=== PATIENT | female | born 1950 | race Caucasian/White ===

== ENCOUNTER → 2016-03-10 | Day surgery (SDC) | payer MEDICARE, OTHER ==
--- NOTE | 2016-02-28 09:41 | HP ---
PREOPERATIVE HISTORY AND PHYSICAL: DATE OF SURGERY: 03/10/16 DATE OF OFFICE VISIT/ENCOUNTER: 02/27/16 ATTENDING SURGEON: Drea Arreola MD PROCEDURE: Left shoulder open decompression and excision, distal clavicle, open. CHIEF COMPLAINT: Left shoulder pain. HISTORY OF PRESENT ILLNESS: This is a 65-year-old female who complains of pain in the left shoulder for over 2 years. It has gradually gotten worse. She denies any injury to the shoulder. She has had x-rays and an MRI, which revealed high riding humeral head, AC joint arthritis, and subacromial impingement along with calcific tendonitis and bursitis. She has failed conservative treatment including cortisone injection, chiropractic treatment, and physical therapy. She is having pain during the day as well as night while she is trying to sleep and anytime she lifts her arm out way from her body above 90 degrees. She is interested in pursuing more definitive treatment for this problem and has consented to proceed with a left shoulder decompression and distal clavicle excision. PAST MEDICAL HISTORY: 1. Hypertension. 2. Back pain. 3. History of kidney stones. PAST SURGICAL HISTORY: 1. Lumbar spine fusion in 2001. 2. Cholecystectomy. 3. Hemorrhoidectomy. 4. Right foot bunionectomy. 5. Bilateral carpal tunnel releases. 6. Right thumb surgery. 7. Stent placement for kidney stones. CURRENT MEDICATIONS: 1. Losartan potassium, hydrochlorothiazide 50 mg 1 tab daily. 2. Methadone HCL 10 mg 1 tab p.o. as needed for pain 3 to 4 per day. 3. Tylenol PM p.r.n. ALLERGIES: No known drug allergies. FAMILY MEDICAL HISTORY: Diabetes and colon cancer. SOCIAL HISTORY: The patient is retired. She is a smoker. She reports at this time smoking approximately 3 cigarettes per day. She is trying to quit. She was up to over a pack per day and has smoked for over 50 years. She denies illicit drug use and alcohol use. REVIEW OF SYSTEMS: General: Negative for fevers, chills, or night sweats. No known anesthesia problems. HEENT: Negative for headache, lightheadedness, or syncopal episodes. Integumentary: Negative for abrasions, lesions, or open wounds. Cardiothoracic: Positive for hypertension. Negative for chest pain, palpitations, or edema. Pulmonary: Negative for shortness of breath with exertion, chronic cough, COPD. GI: Negative for nausea, vomiting, diarrhea, constipation, or GERD. : Positive for history of kidney stones. Negative for nocturia, urinary frequency, urgency, history of UTIs. Musculoskeletal: Positive for current complaint and chronic back pain. Neurological: Negative for paresthesias, numbness, history of seizure, stroke, or epilepsy. Endocrine : Negative for diabetes or thyroid issues. Hematologic: Negative for easy bruising, anemia, excessive bleeding, or history of DVT. Infectious Disease: Negative for history of MRSA, hepatitis C, or HIV. PHYSICAL EXAMINATION GENERAL: Well-developed, well-nourished 65-year-old female, in no acute distress. VITAL SIGNS: Height 5 feet 5-1/2 inches, weight 182 pounds, pulse rate 83, blood pressure 132/80. HEENT: Normocephalic, atraumatic. Pupils are equal, round, and reactive to light and accommodation. Extraocular movements are intact. Throat is clear. NECK: Supple. No palpable lymph nodes. CARDIOTHORACIC: Regular rate and rhythm. S1, S2. No murmurs, rubs, or gallops. No edema. PULMONARY: Lungs are clear to auscultation bilaterally. No wheezes, rales, or rhonchi. ABDOMEN: Positive bowel sounds, soft, nontender. NEUROLOGICAL: Alert and oriented x3. Cranial nerves II through XII are intact. Sensation is intact to light touch. MUSCULOSKELETAL: On exam of the left shoulder, she has tenderness to palpation at the acromioclavicular joint. Range of motion: Forward elevation approximately 100 degrees after which there is significant increase in pain, abduction to 90 degrees, again with significant pain afterwards, internal rotation to about level L3, external rotation to 80 degrees, but painful at extremes. Increased pain with external rotation and abduction against resistance and weakness with these motions as well. Positive Rodrigues-Kike impingement and near impingement and empty can test. IMAGING STUDIES: X-rays of the left shoulder showed high-riding humeral head and AC joint arthritis and MRI of the shoulder again shows AC joint arthritis with impingement. No tear in the rotator cuff. Biceps tendon and the labrum are intact. IMPRESSION: Left shoulder impingement and calcific tendonitis, bursitis. PLAN: The patient is scheduled to undergo left shoulder open decompression and distal clavicle excision open with Dr. Arreola on 03/10/16. She will return to the office in 10 to 14 days postop for followup and suture removal. A prescription for [place] was e-scribed to the patient's pharmacy for postoperative pain management. She will also be using her methadone as prescribed by Dr. Deepa carroll. IVELISSE JERRY [id number]/[facility] #: [id number] [place]
[~2016-03-10] MED LIST: Acetaminophen TAB* 325 MG PO PRN; Buffered Lidocaine 1% SYR 3ML* 3 ML/SYR SYRINGE INTRADERM ONE; Buffered Lidocaine 1% SYR 3ML* 3 ML/SYR SYRINGE ONE; Bupivacaine 0.5% W/EPI SDV* 30 ML VIAL ONE; Dexamethasone IV* 4 MG/ML 1 ML (4 MG) ONE; DiMENhydriNATE IV* 50 MG/ML VIAL IV PUSH PRN; EPHEDrine (Pressors)* 50 MG/ML VIAL ONE; Famotidine IV* 10 MG/ML 2 ML (20 mg) IV ONE; Famotidine IV* 10 MG/ML 2 ML (20 mg) ONE; HYDROcodone/ACETAMIN 5-325 MG* 1 TAB ONE; HYDROcodone/ACETAMIN 5-325 MG* 1 TAB PO ONE; KETAMINE HCL* 50 MG/ML 10 ML VIAL ONE; Ketorolac INJ* 30 MG/ML 1 ML VIAL ONE; Lidocaine 1% MPF* 2 ML VIAL ONE; Lidocaine 2% PF * 5 ML VIAL ONE; Midazolam* 1 MG/ML 5 ML VIAL (5 MG) ONE; Ondansetron INJ* 2 MG/ML VIAL ONE; Propofol* 10 MG/ML 20 ML BTL IV PUSH ONE; ROPIVACAINE 5 MG/ML 30 ML BTL (0.5%) ONE; ceFAZolin 2 GM PREMIX (*) 2 GM/50 ML BAG IVPB ONE; fentaNYL* 50 MCG/ML 2 ML VIAL (100 MCG VIAL) ONE; oxyCODONE/Acetamin 5/325 MG* TAB PO PRN
[2016-03-10 17:13] VITALS: BP 138/88
--- NOTE | 2016-03-10 21:44 | OP ---
DATE OF OPERATION: 03/10/16 - [facility] DATE OF : 50 SURGEON: Drea Arreola MD [employer]CTION SPECIALIST: IVELISSE Babin ANESTHESIOLOGIST: María Elena Seymour MD ANESTHESIA: Block plus general. PRE-OP DIAGNOSES: Left shoulder impingement and AC joint arthritis. POST-OP DIAGNOSES: Left shoulder impingement and AC joint arthritis. OPERATIVE PROCEDURE: Left shoulder open decompression and distal clavicle excision. ESTIMATED BLOOD LOSS: Zero. INDICATIONS: Marilee is a 65-year-old female with left shoulder pain which has failed to improve despite conservative treatment including cortisone injection, physical therapy. She presents for left shoulder decompression and distal clavicle excision. DESCRIPTION OF PROCEDURE: The patient was brought to the operating room, was given a block in the preop area and general anesthetic in the operating room. The skin of her left shoulder and upper extremity was prepped and draped in the usual sterile fashion. A diagonal incision was made from the posterior aspect of the AC joint to the anterolateral corner of the acromion. We dissected through the subcutaneous tissue down to the deltoid trapezial fashion. The fascia was incised and subperiosteally dissected off of the distal clavicle and the anterior acromion. The Hohmann retractors were placed around the distal clavicle and the distal 8 mm of the clavicle were removed with a saw. A malleable retractor was then placed under the acromion to protect the rotator cuff. This was secured by the paralegal assistant, Holli Pires. The anterior and inferior aspect of the acromion were removed with the saw while the underlying rotator cuff was protected with a malleable retractor. There was some mild amount of bursitis overlying the rotator cuff and this was debrided. The rotator cuff was then thoroughly inspected and no tear was found. The wound was copiously irrigated with saline. The deltoid trapezial fascia was reapproximated to the anterior acromion and over the distal clavicle with #2 Ti-Cron suture. Subcutaneous tissue was closed with 2-0 Polysorb and the skin with skin fatemeh. The wounds were dressed with Xeroform, 4x4, and ABD. The patient tolerated the procedure well and was brought to the recovery room in good condition. [id number]/[facility] #: [id number] [facility]
== END | disposition home or self-care (01) ==
LOC: OREAST 07:44
PROVIDERS: ATTEND Orthopaedic Surgery
DX: M75.42 Impingement syndrome of left shoulder (principal); M19.012 Primary osteoarthritis, left shoulder; I10 Essential (primary) hypertension; F17.210 Nicotine dependence, cigarettes, uncomplicated
CPT/HCPCS: 88304; 88311; J0690; J1100; J1885; J2250; J2405; J2704; J2795; J3010

== ENCOUNTER 2016-07-13 12:35 | Day surgery (SDC) | payer MEDICARE, OTHER ==
--- NOTE | 2016-07-10 22:46 | HP ---
CC: Dr. Mahendra Arenas HISTORY AND PHYSICAL: DATE OF PLANNED ADMISSION AND SURGERY: 07/13/16 HISTORY OF PRESENT ILLNESS: Ms. Craven is a 65-year-old white female who is admitted with a right renal calculus for shockwave lithotripsy, possible cystoscopy and placement of a Right ureteral stent. Ms. Craven is a known stone former and in November 2013, required placement of a left ureteral stent and shockwave lithotripsy of a 1.6 cm calculus in the upper pole of the left kidney. She did very well postoperatively and there was good fragmentation and passage of the stone fragments. At that time, she was noted to have 2 non-obstructing right renal calculi each measuring about 8 mm in size. Those were observed and had been asymptomatic until about a week or two when she started having episodes of on and off right flank pain. The pain, however, was mild and did not require her taking any medications. She was evaluated in the office and had bilateral renal ultrasound. The study showed an 8-mm calculus that was ball valving in the right renal pelvis and at the ureteropelvic junction causing mild right hydronephrosis. There was also an 8-mm calculus in her left kidney, but no hydronephrosis. The patient then had a KUB, which confirmed the presence of a radiopaque calculus in the area of the right kidney. Because of the above history and the size of the stone which will make it unlikely to drop spontaneously, the patient is admitted for shockwave lithotripsy of the right renal calculus, and possible stent placement. PAST MEDICAL HISTORY AND SYSTEM REVIEW: The patient has past history of chronic back pain and had required surgery and placement of a cage around her lower lumbar vertebrae. She has chronic pain and she is maintained on Voltaren and on methadone 10 mg daily. She is hypertensive and maintained on losartan 50/12.5 mg daily. ALLERGIES: She denies any allergy to medications; however, she reports having reaction to ADHESIVE TAPE. SOCIAL HISTORY: She is a chronic smoker. PHYSICAL EXAMINATION GENERAL: Moderately overweight white female who looks her age. VITAL SIGNS: Blood pressure 130/80, pulse of 80. LUNGS: Clear. HEART: Regular and rhythmic. No murmurs. ABDOMEN: Soft. No masses. No tenderness and there is no CVA tenderness. IMPRESSION: 1. An 8-mm calculus in the right renal pelvis causing intermittent episodes of mild right flank pain. 2. Chronic back pain. 3. Hypertension. PLAN: Shockwave lithotripsy of the right renal calculus and possible cystoscopy and placement of a right ureteral stent depending upon the adequacy of the fragmentation of the stone. I discussed the above plans with the patient. Some of the potential complications including hematuria and postoperative renal colic. All her questions were answered. [id number]/[facility] #: [id number] [place]
[~2016-07-13 12:35] MED LIST changes: -Acetaminophen TAB* 325 MG PO PRN; -Buffered Lidocaine 1% SYR 3ML* 3 ML/SYR SYRINGE INTRADERM ONE; -Buffered Lidocaine 1% SYR 3ML* 3 ML/SYR SYRINGE ONE; +Buffered Lidocaine 1% SYRIN* 5 ML/SYR SYRINGE INTRADERM ONE; -Bupivacaine 0.5% W/EPI SDV* 30 ML VIAL ONE; -Dexamethasone IV* 4 MG/ML 1 ML (4 MG) ONE; -DiMENhydriNATE IV* 50 MG/ML VIAL IV PUSH PRN; -EPHEDrine (Pressors)* 50 MG/ML VIAL ONE; -Famotidine IV* 10 MG/ML 2 ML (20 mg) ONE; -HYDROcodone/ACETAMIN 5-325 MG* 1 TAB ONE; -HYDROcodone/ACETAMIN 5-325 MG* 1 TAB PO ONE; -KETAMINE HCL* 50 MG/ML 10 ML VIAL ONE; -Ketorolac INJ* 30 MG/ML 1 ML VIAL ONE; -Lidocaine 1% MPF* 2 ML VIAL ONE; -Lidocaine 2% PF * 5 ML VIAL ONE; +Metoclopramide TAB* 10 MG PO ONE; -Midazolam* 1 MG/ML 5 ML VIAL (5 MG) ONE; -Ondansetron INJ* 2 MG/ML VIAL ONE; -Propofol* 10 MG/ML 20 ML BTL IV PUSH ONE; -ROPIVACAINE 5 MG/ML 30 ML BTL (0.5%) ONE; -ceFAZolin 2 GM PREMIX (*) 2 GM/50 ML BAG IVPB ONE; -fentaNYL* 50 MCG/ML 2 ML VIAL (100 MCG VIAL) ONE; -oxyCODONE/Acetamin 5/325 MG* TAB PO PRN
[2016-07-13] MEDS ORDERED: Metoclopramide TAB* 10 MG ONE (12:43)
[2016-07-13] MEDS ORDERED: Buffered Lidocaine 1% SYRIN* 5 ML/SYR SYRINGE ONE (12:43)
[2016-07-13] MEDS ORDERED: Famotidine IV* 10 MG/ML 2 ML (20 mg) ONE (13:08)
[2016-07-13] MEDS ORDERED: Lidocaine 2% PF * 5 ML VIAL ONE (14:33)
[2016-07-13] MEDS ORDERED: KETAMINE HCL* 50 MG/ML 10 ML VIAL ONE (14:33)
[2016-07-13] MEDS ORDERED: Dexamethasone IV* 4 MG/ML 1 ML (4 MG) ONE (14:33)
[2016-07-13] MEDS ORDERED: Ketorolac INJ* 30 MG/ML 1 ML VIAL ONE (14:33)
[2016-07-13] MEDS ORDERED: Propofol* 10 MG/ML 20 ML BTL IV PUSH ONE (14:33)
[2016-07-13] MEDS ORDERED: fentaNYL* 50 MCG/ML 2 ML VIAL (100 MCG VIAL) ONE (14:33)
[2016-07-13] MEDS ORDERED: Ondansetron INJ* 2 MG/ML VIAL ONE (14:33)
[2016-07-13] MEDS ORDERED: Midazolam* 1 MG/ML 5 ML VIAL (5 MG) ONE (14:33)
[2016-07-13] MEDS ORDERED: Iohexol 180 (CONTRAST) 10 ML SDV IV ONE (14:40)
[2016-07-13] MEDS ORDERED: Ondansetron INJ* 2 MG/ML VIAL IV PRN (15:06)
[2016-07-13] MEDS ORDERED: fentaNYL* 50 MCG/ML 2 ML VIAL (100 MCG VIAL) IV PRN (15:06)
[2016-07-13] MEDS ORDERED: EPHEDrine (Pressors)* 50 MG/ML VIAL ONE (15:27)
[2016-07-13 16:49] VITALS: BP 134/74
--- NOTE | 2016-07-14 12:46 | OP ---
CC: Mahendra Arenas MD OPERATIVE REPORT: DATE OF OPERATION: 07/13/16 DATE OF : 50 SURGEON: Sedrick Hernandez MD. ANESTHESIOLOGIST: Dr. Michael Blum. ANESTHESIA: General. PRE-OP DIAGNOSIS: Right renal calculus (8 mm). POST-OP DIAGNOSIS: Right renal calculus (8 mm). OPERATIVE PROCEDURE: Shockwave lithotripsy of right renal calculus. INDICATION FOR PROCEDURE: Mrs. Craven is a 65-year-old white female, who is a stone former, and who was recently noted on a renal ultrasound to have an 8-mm calculus in the area of the right renal pel vis. This was associated with mild hydronephrosis and with mild right flank pain. A KUB confirmed the presence of the stone. Because of the size and the location of the stone, the above procedure w as advised and accepted. PATHOLOGY: Preoperative KUB showed a radiopaque calculus in the area of the right renal pelvis. No other abnormal calcification were noted. At fluoroscopy, the calculus was easily visualized. DESCRIPTION OF PROCEDURE: After successful general anesthesia, the patient was placed in the supine position on the shockwave lithotripsy table. The right renal calculus was visualized in both the P A and the oblique x-ray views and the position of the generator was adjusted to have the stone in th e focus of the shockwaves. A total of 1400 shocks were then delivered at a rate of 90 shocks per mi nute. The proper positioning and fragmentation of the stone were monitored periodically. At the co mpletion of the treatment, there was very good fragmentation of the stone, which could not be seen a nymore on the fluoroscopy. Because of the good fragmentation, it was decided not to place a stent. The patient tolerated the procedure well and left the operating room in good condition. The plan i s to see the patient back in 2 to 3 week in the office for followup. [id number]/[facility] #: [id number]
== END 2016-07-13 16:51 | disposition home or self-care (01) ==
LOC: OR 12:35
PROVIDERS: ATTEND Urology
DX: N13.2 Hydronephrosis with renal and ureteral calculous obstruction (principal); I10 Essential (primary) hypertension; F17.200 Nicotine dependence, unspecified, uncomplicated; G89.29 Other chronic pain; Z79.891 Long term (current) use of opiate analgesic
CPT/HCPCS: A9270-GY; J1100; J1885; J2250; J2405; J2704; J3010

== ENCOUNTER 2018-03-28 08:40 | Inpatient (IN) | payer MEDICARE, OTHER ==
[2018-03-28] MEDS ORDERED: NS 0.9% 1000 ML** 1,000 ML IV ONE (08:47)
[2018-03-28] MEDS ORDERED: methylPREDNISolone 125 MG* 2 ML VIAL IV ONE (08:47)
--- NOTE | 2018-03-28 08:52 | ED ---
Shortness of Breath - HPI Summary HPI Summary: A 67 y/o female brought in by ambulance presents to the ED c/o SOB. In the ED room, the patient has a pulse of 101 BPM, O2 saturation of 95%, and blood pressure of 142/91. According to the patient, she has been SOB for a while now, but she stated that this morning when she woke up and went to the bathroom, then back to bed she felt like her heart was racing and could not breath. She stated that she woke up her to call EMS. The patient denies any fevers or chest pain, but does have a cough. No PMHx of COPD. SHx of heavy everyday smoker (4-6 cigarettes per day). - History of Current Complaint Time Seen by Provider: 03/28/18 08:44 Hx Obtained From: Patient Onset/Duration: Sudden Onset, Lasting Minutes Timing: Constant Current Severity: None Dyspnea At: Rest Aggrevating Factors: Nothing Alleviating Factors: Nothing Associated Signs & Symptoms: Cough (Nonproductive) - Allergy/Home Medications Allergies/Adverse Reactions: Allergies Allergy/AdvReac Type Severity Reaction Status Date / Time No Known Drug Allergies Allergy See Comment Verified 03/28/18 22:07 BANDAIDS Allergy Rash-see Uncoded 12/02/16 09:59 below Home Medications: Home Medications Losartan/Hydrochlorothiazide [Losartan-Hctz 50-12.5 mg Tab] 1 tab PO QAM [History Confirmed 03/28/18] PMH/Surg Hx/FS Hx/Imm Hx Endocrine/Hematology History: Denies: Hx Diabetes Cardiovascular History: Reports: Hx Hypertension - ON MEDICATION Denies: Hx Pacemaker/ICD GI History: Reports: Other GI Disorders - 2006 HX OF COLON POLYPS History: Reports: Hx Kidney Stones, Other Problems/Disorders - CURRENTLY HAS RIGHT RENAL CALCULUS Denies: Hx Renal Disease Musculoskeletal History: Reports: Hx Arthritis - RIGHT HAND, LEFT SHOULDER, Hx Bursitis - POSSIBLE LEFT SHOULDER, Hx Tendonitis - BILATERAL ARMS, Other Musculoskeletal History - FIBROMYALGIA Sensory History: Reports: Hx Contacts or Glasses - GLASSES Denies: Hx Hearing Aid Opthamlomology History: Reports: Hx Contacts or Glasses - GLASSES Psychiatric History: Denies: Hx Panic Disorder - Cancer History Cancer Type, 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 HEMRO[place]OMY, [facility] [place]. GALL BLADDER REMOVED, [facility] [place]. RIGHT FOOT BONE SPUR REMOVED, [facility] [place],. CARPEL TUNNEL BILAT HANDS. [facility] [place]. 2014 RIGHT THUMB TRIGGER RELEASE, RIGHT INDEX FINGER EXCISION OF MASS, ARTHROPLASTY, [facility] [place]. 2014 CYSTOSCOPY WITH LEFT URETERAL STENT, LEFT ESWL, left arm skin - squamous cell Hx Anesthesia Reactions: No - Family History Known Family History: Negative: Hypertension, Diabetes - Social History Alcohol Use: None Substance Use Type: Reports: None Smoking Status (MU): Light Every Day Tobacco Smoker Type: Cigarettes Amount Used/How Often: 3-4 CIGARETTES PER DAY, OFF AND ON 50 YEARS Length of Time of Smoking/Using Tobacco: 50 YEARS Have You Smoked in the Last Year: Yes Review of Systems Negative: Fever Positive: Other - POSITIVE: "FELT HEART RACING".. Negative: Chest Pain Positive: Shortness Of Breath, Cough All Other Systems Reviewed And Are Negative: Yes Physical Exam - Summary Physical Exam Summary: VITAL SIGNS: Reviewed. GENERAL: Patient is a well-developed and nourished female who is lying comfortable in the stretcher. Patient is not in any acute respiratory distress. HEAD AND FACE: No signs of trauma. No ecchymosis, hematomas or skull depressions. No sinus tenderness. EYES: PERRLA, EOMI x 2, No injected conjunctiva, no nystagmus. EARS: Hearing grossly intact. Ear canals and tympanic membranes are within normal limits. MOUTH: Oropharynx within normal limits. NECK: Supple, trachea is midline, no adenopathy, no JVD, no carotid bruit, no c- spine tenderness, neck with full ROM. CHEST: Symmetric, no tenderness at palpation LUNGS: Clear to auscultation bilaterally. No crackles. Diffuse wheezing. CVS: Regular rate and rhythm, S1 and S2 present, no murmurs or gallops appreciated. ABDOMEN: Soft, non-tender. No signs of distention. No rebound no guarding, and no masses palpated. Bowel sounds are normal. EXTREMITIES: FROM in all major joints, no edema, no cyanosis or clubbing. NEURO: Alert and oriented x 3. No acute neurological deficits. Speech is normal and follows commands. SKIN: Dry and warm Triage Information Reviewed: Yes Vital Signs Reviewed: Yes Diagnostics - Laboratory Result Diagrams: 03/28/18 09:06 03/28/18 09:09 Lab Statement: Any lab studies that have been ordered have been reviewed, and results considered in the medical decision making process. - Radiology CXR Radiology Interpretation Completed By: Radiologist Summary of Radiographic Findings: No radiographic evidence of acute cardiopulmonary disease. ED PHYSICIAN REVIEWED THIS RADIOLOGY REPORT. - EKG 0851 Cardiac Rate: NL - 92 BPM EKG Rhythm: Sinus Rhythm - 92 BPM Summary of EKG Findings: NO ST ELEVATIONS, NORMAL AXIS Course/Dx - Course Assessment/Plan: A 67 y/o female brought in by ambulance presents to the ED c/o SOB. In the ED room, the patient has a pulse of 101 BPM, O2 saturation of 95%, and blood pressure of 142/91. According to the patient, she has been SOB for a while now, but she stated that this morning when she woke up and went to the bathroom, then back to bed she felt like her heart was racing and could not breath. She stated that she woke up her to call EMS. The patient denies any fevers or chest pain, but does have a cough. No PMHx of COPD. SHx of heavy everyday smoker (4-6 cigarettes per day). Blood work without any significant abnormality except for chloride 99, creatinine 1.15, glucose 126, AST of 12, urinalysis negative for UTI. Since the patient was having shortness of breath and the d-dimer was done to rule out PE and the d-dimer is negative. Chest x- ray shows no acute pathology. EKG shows a sinus rhythm without any ST elevations. Initially the patient was wheezing therefore the patient was given DuoNeb and Solu-Medrol. The patient appears to be hypoxic and without oxygen she drops to 86%. Therefore I discussed the case with Dr. Portillo from the hospital services for accepted the patient for admission. The patient is hemodynamically stable alert and oriented 3. - Diagnoses Differential Diagnosis/HQI/PQRI: Positive: Asthma, Bronchitis, CHF, COPD Exacerbation Provider Diagnoses: COPD exacerbation - Physician Notifications Discussed Care of Patient With: Zeyad Portillo Time Discussed With Above Provider: 11:33 Instructed by Provider To: Other - ACCEPTS PATIENT FOR ADMISSION. Discharge - Sign-Out/Discharge Documenting (check all that apply): Patient Departure - ADMIT, Sign-Out Patient - COY Signing out patient TO: Zeyad Portillo Receiving patient FROM: Chandu Corey Patient Received Moderate/Deep Sedation with Procedure: No - Discharge Plan Condition: Stable Disposition: ADMITTED TO [facility] - Billing Disposition and Condition Condition: STABLE Disposition: Admitted to [facility] - Attestation Statements Document Initiated by Alane: Yes Documenting Scribe: Vincent Del Real Provider For Whom Cynthiaibmadison is Documenting (Include Credential): Chandu Corey MD Scribe Attestation: Vincent Chiang, scribed for Chandu Corey MD on 03/29/18 at 2153. Scribe Documentation Reviewed: Yes Provider Attestation: The documentation as recorded by the Vincent byers accurately reflects the service I personally performed and the decisions made by Chandu iraheta MD Status of Scribe Document: Viewed
[2018-03-28 09:17] LABS: ABS Basophils 0.1 10^3/ul (0-0.2); ABS Eosinophils 0.4 10^3/ul (0-0.6); ABS Lymphocytes 2.8 10^3/ul (1.0-4.8); ABS Monocytes 0.7 10^3/ul (0-0.8); ABS Nucleated RBC 0 10^3/ul; Eosinophil % 4.4 %; Hematocrit 46 % (35-47); Hemoglobin 15.2 g/dl (12.0-16.0); Lymphocyte % 27.6 %; Mean Corpuscular HGB Conc 34 g/dl (31-36); Mean Corpuscular Hemoglobin 29 pg (27-31); Mean Corpuscular Volume 87 fL (80-97); Mean Platelet Volume 7.2 fL (7.4-10.4); Nucleated Red Blood Cells % 0; Platelet Count 325 10^3/ul (150-450); Red Blood Count 5.24 10^6/ul (4.00-5.40); Red Cell Distribution Width 15 % (10.5-15); White Blood Count 10.1 10^3/ul (3.5-10.8)
[2018-03-28 09:30] LABS: Activated Partial Thrombo Time 30.3 seconds (26.0-36.3)
[2018-03-28] MEDS ORDERED: Albuterol/Ipratropium NEB.SOL* Albuterol 2.5 MG/Ipratropium 0.5 MG 3 ML ONE (09:42)
[2018-03-28 09:44] LABS: Albumin 4.4 g/dL (3.2-5.2); Albumin/Globulin Ratio 1.4 (1-3); C Reactive Protein 6.6 mg/L (<8.01); Calcium 9.8 mg/dL (8.6-10.3); EGFR African American 56.9 (>60); EGFR Non-African American 47.1 (>60); Globulin 3.2 g/dL (2-4); Potassium 3.8 mmol/L (3.5-5.0); Total Bilirubin 0.6 mg/dL (0.2-1.0); Total Protein 7.6 g/dL (6.4-8.9)
[2018-03-28 09:48] LABS: CKMB ng/mL 1.6 ng/mL (0.6-6.3)
[2018-03-28] MEDS: Albuterol/Ipratropium NEB.SOL* Albuterol 2.5 MG/Ipratropium 0.5 MG 3 ML INH SCH ×2 (09:49→10:14)
[2018-03-28 10:28] LABS: Urine Appearance Cloudy; Urine Bacteria Absent (Absent); Urine Bilirubin Negative (Negative); Urine Blood Negative (Negative); Urine Color Yellow; Urine Glucose Negative (Negative); Urine Ketones Negative (Negative); Urine Nitrite Negative (Negative); Urine Protein Negative (Negative); Urine Red Blood Cell Trace(0-2/hpf) (Absent); Urine Specific Gravity 1.019 (1.010-1.030); Urine Squamous Epithelial Cell Present (Absent); Urine Urobilinogen Negative (Negative); Urine White Blood Cell 1+(6-10/hpf) (Absent)
[2018-03-28] MEDS ORDERED: Acetaminophen TAB* 325 MG PO PRN (11:56)
[2018-03-28] MEDS ORDERED: Albuterol/Ipratropium NEB.SOL* Albuterol 2.5 MG/Ipratropium 0.5 MG 3 ML INH SCH (12:00)
[2018-03-28] MEDS ORDERED: Azithromycin IV(*) 500 MG in NS 0.9% 250 ML* 250 ML IVPB SCH (12:00)
[2018-03-28] MEDS ORDERED: Albuterol/Ipratropium NEB.SOL* Albuterol 2.5 MG/Ipratropium 0.5 MG 3 ML INH PRN (12:05)
[2018-03-28 12:35] LABS: Influenza A Molecular NEGATIVE (Negative); Influenza B Molecular NEGATIVE (Negative)
[2018-03-28] MEDS ORDERED: Azithromycin IV* 500 MG ADVAN VIAL/BAG IVPB ONE (12:52)
[2018-03-28] MEDS: Losartan TAB* 25 MG PO SCH (14:14)
[2018-03-28] MEDS ORDERED: Albuterol/Ipratropium NEB.SOL* Albuterol 2.5 MG/Ipratropium 0.5 MG 3 ML INH ONE (18:12)
[2018-03-28] MEDS: Docusate CAP* 100 MG PO SCH (20:10)
[2018-03-28] MEDS: methylPREDNISolone 125 MG* 2 ML VIAL IV SCH (20:10)
--- NOTE | 2018-03-28 20:37 | HP ---
CC: Dr. Arenas * HISTORY AND PHYSICAL: DATE OF ADMISSION: 03/28/18 TIME OF MY EVALUATION: 4 p.m. PRIMARY CARE PROVIDER: Mahendra Arenas MD, [facility]. CHIEF COMPLAINT: Shortness of breath/cough/heart racing. HISTORY OF PRESENT ILLNESS: Ms. Craven is a pleasant 67-year-old female who came to the hospital by ambulance with a chief complaint of shortness of breath. The patient was mildly tachypneic with a pulse of just over 100 beats per minute. Her oxygen saturation was 95% on supplemental oxygen, but upon ambulation on room air, dipped quickly into the low 80s. The patient states she has been short of breath for some time, but she woke up and went to her bathroom and felt her heart racing and could not re-catch her breath. Her activated EMS. The patient does not have a formal history of COPD, but the patient has smoked for greater than 50 years with an average consumption of 1 pack per day for a total pack year history of 50 years. The patient does not have an extensive medical history and has not been hospitalized at [facility] before now. She was referred for admission because of her ongoing hypoxia with ambulation. Again, she has not had a formal pulmonology consult. PAST MEDICAL HISTORY: 1. Hypertension - on medication. 2. History of colon polyps with removal in 2006. 3. Right hand arthritis/left shoulder bursitis/bilateral arm tendinitis/ diffuse fibromyalgia. 4. Wears eyeglasses. 5. 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 6. History of lumbar surgery in 1998. 7. History of hemorrhoidectomy. 8. History of cholecystectomy. 9. History of right thumb bone spur removed. 10. History of bilateral carpal tunnel correction. 11. History of right thumb trigger release and right index finger excision of mass. 12. History of arthroplasty. 13. Cystoscopy with left ureteral stent in 2013. 14. Left extracorporeal shock wave therapy. OUTPATIENT MEDICATIONS: 1. Losartan/hydrochlorothiazide 50/12.5 mg per tab - 1 tab by mouth daily. 2. Methadone 10 to 20 mg by mouth every 6 hours as needed (the patient brought her own supply). ALLERGIES: No known drug allergies. FAMILY HISTORY: Negative for hypertension and diabetes. SOCIAL HISTORY: The patient is an ongoing smoker for over 50 years with a 50- pack year smoking history or greater. The patient is . She is currently retired. The patient lives independently in the community. REVIEW OF SYSTEMS: A 14-point review of systems was accomplished at the bedside. This was largely negative except for the pertinent positives as mentioned above in the HPI and past medical history. Specifically, the patient does espouse coughing, but not sputum production. She has not had fevers. She has had progressive shortness of breath and tachycardia. No recent known infections. No recent ill contacts. No urinary symptoms. PHYSICAL EXAMINATION ON ADMISSION VITAL SIGNS: Temperature 99.3 (T-max), pulse 92 to 97 and regular, respirations 18 to 20, oxygen saturation is low 90s on 2.5 L nasal cannula with desaturations to 80% or less walking on room air in a monitored setting. HEENT: Oropharynx is clear. Mucous membranes are moist. LUNGS: Clear to auscultation, but diminished air movement anteriorly and posteriorly. No wheezing appreciated. HEART: Normal S1, normal S2. No murmurs, rubs, or gallops appreciated. ABDOMEN: Soft and nontender. No tenderness. Normoactive bowel sounds throughout. EXTREMITIES: Without clubbing, cyanosis, or edema. LYMPH: No adenopathy appreciated. NEURO: No sensory, motor, proprioception component deficiency. PSYCH: Normal affect. No acute anxiety or depression. SKIN: Dry and intact. No rashes, lesions, or breakdown. DIAGNOSTIC STUDIES/LAB DATA: Admission Data: White blood cell count top normal at 10.1, hemoglobin 15.2, platelets 325. INR unremarkable. D-dimer negative. Blood gas significant for a pH of 7.46/pCO2 38/pO2 66 (supplemental oxygen/nasal cannula). Blood chemistry is significant for a creatinine valve of 1.15, up from most recent value of 0.98 in 2017. The remainder of her electrolytes are unremarkable. Her glucose is mildly elevated at 126 ( nonfasting). Lactic acid 1.6. AST and ALT are normal. Troponin I is 0. BNP is 26. Total protein and albumin are both preserved. Urinalysis negative with 1+ white cells (6 to 10 cells per high-power field) seen in the urine, but no urinary symptoms of unclear significance. Influenza A and B were both negative. Her chest x-ray did not show any pulmonary parenchymal disease. There was no radiographic evidence for her current presentation as per the radiology report. Her electrocardiogram showed no ST or T wave changes. IMPRESSION: Ms. Craven is a 67-year-old female with an acute COPD exacerbation with under-appreciation of likely underlying COPD. The patient has been started on IV Solu-Medrol and will continue on 60 IV q.8 regimen. She will continue to receive DuoNebs in the hospital setting as well as IV azithromycin for possible infectious cause of this presentation. In terms of her oxygen level, she will continue on oxygen supplementation overnight and she will re-tested in the morning for qualification for outpatient oxygen. Hopefully, the patient's airway inflammation and/or infection will improve and her ventilation will also improve and her oxygenation will, in turn, improve. If this is not the case, she will qualify for outpatient oxygen and logistics will be arranged. Smoking cessation counseling was given directly by me for greater than 15 minutes and the patient was happy to receive that. She does have nicotine replacement therapy at home. She has taken Chantix in the past. Both have been unsuccessful with respect to durable cessation. She is eager to start again. The patient is full code. TOTAL SPENT: Total time taken to admit Ms. Craven was 75 minutes, not counting the tobacco cessation counseling and greater than half of that 75 minutes was at the bedside going over the history and physical and explaining the hospital plan of care to the patient as well as the pathophysiology of COPD and relating that to smoking [id number]/[facility] #: [id number] MTDD
[2018-03-28] MEDS: Benzocaine/Menthol LOZ* 1 LOZENGE PO PRN (22:19)
[2018-03-29] MEDS: methylPREDNISolone 125 MG* 2 ML VIAL IV SCH ×3 (03:37→19:52)
[2018-03-29] MEDS: Losartan TAB* 25 MG PO SCH (09:26)
[2018-03-29] MEDS: Docusate CAP* 100 MG PO SCH ×2 (09:26→19:54)
[2018-03-29] MEDS: Nicotine PATCH 14 MG/24 HR* PATCH TRANSDERM SCH (09:26)
[2018-03-29] MEDS: Azithromycin IV(*) 500 MG in NS 0.9% 250 ML* 250 ML IVPB SCH (12:19)
[2018-03-29] MEDS: Methadone TAB* 10 MG PO PRN (12:34)
--- NOTE | 2018-03-29 18:41 | PN ---
Subjective Date of Service: 03/29/18 Interval History: Interviewed and examined patient at bedside; Reviewed overnight nursing notes and patient labs Patient's oxygenation status did not appreciably improve and, in fact, her O2 saturation on walking worsened. On ambulation, she required EIGHT liters of oxygen to maintain sats > 90%. We discussed how it would be prudent to have her airway inflammation decrease before discharge. She is tolerating steroids and on IV Abx (Azithro). We discussed that it might be the case that she has more extensive underlying pulmonary disease such that a relatively minor insult would result in a substantial COPD exacerbation and greater oxygen requirement. She suspects she might indeed have more severe COPD than initially thought. . Family History: Unchanged from Admission Social History: Unchanged from Admission Past Medical History: Unchanged from Admission Objective Active Medications: Acetaminophen (Tylenol Tab*) 650 mg PO Q4H PRN PRN Reason: FEVER/PAIN Albuterol/Ipratropium (Duoneb (Albuterol 2.5 Mg/Ipratropium 0.5 Mg)) 1 neb INH Q4H PRN PRN Reason: SOB/WHEEZING Docusate Sodium (Colace Cap*) 100 mg PO BID [facility] Last Admin: 03/29/18 09:26 Dose: 100 mg Azithromycin 500 mg/ Sodium (Chloride) 250 mls @ 250 mls/hr IVPB 1300 [facility] Last Admin: 03/29/18 12:19 Dose: 250 mls/hr Losartan Potassium (Cozaar Tab*) 50 mg PO DAILY [facility] Last Admin: 03/29/18 09:26 Dose: 50 mg Methadone HCl (Dolophine Tab*) 10 mg PO Q6H PRN PRN Reason: PAIN Last Admin: 03/29/18 12:34 Dose: 10 mg Methylprednisolone Sodium Succinate (Solu-Medrol 125mg *) 60 mg IV Q8H [facility] Last Admin: 03/29/18 12:05 Dose: 60 mg Nicotine (Nicotine Patch 14 Mg/24 Hr*) 1 patch TRANSDERM DAILY [facility] Last Admin: 03/29/18 09:26 Dose: Not Given Pharmacy Profile Note (Nicotine Patch Removal Note*) 1 note FOLLOW UP 2100 [facility] Throat Lozenges (Chloraseptic Namrata*) 1 namrata PO Q6H PRN PRN Reason: SORE THROAT Last Admin: 03/28/18 22:19 Dose: 1 namrata Vital Signs - 8 hr 02/05/19 02/05/19 02/05/19 11:26 12:34 12:47 Temperature 97.8 F Pulse Rate 89 Respiratory 20 16 Rate Blood Pressure 129/63 (mmHg) O2 Sat by Pulse 94 88 Oximetry 03/29/18 03/29/18 03/29/18 14:35 15:01 16:00 Temperature 98.6 F Pulse Rate 84 Respiratory 18 18 Rate Blood Pressure 110/83 (mmHg) O2 Sat by Pulse 93 93 Oximetry Oxygen Devices in Use Now: Nasal Cannula Appearance: NAD at rest Eyes: No Scleral Icterus Ears/Nose/Mouth/Throat: Clear Oropharnyx Neck: Trachea Midline Respiratory: Symmetrical Chest Expansion and Respiratory Effort, - - distant breath sounds Abdominal: NL Sounds; No Tenderness; No Distention Lymphatic: No Cervical Adenopathy Extremities: No Edema Skin: No Rash or Ulcers Neurological: Alert and Oriented x 3 Lines/Tubes/Other Access: Clean, Dry and Intact Peripheral IV Nutrition: Taking PO's Result Diagrams: 03/28/18 09:06 03/28/18 09:09 Microbiology and Other Data: Microbiology 03/28/18 10:15 Urine Culture - Final Urine 03/28/18 12:07 Influenza Types A,B Antigen - Final Nasopharyngeal Specimen received for Influenza A/B Molecular testing Assess/Plan/Problems-Billing . Assessment: 67 year old female with COPD and now, acute exacerbation and hypoxic respiratory failure. Ongoing oxygen requirement --> need for substantial supplementation such that I am uncomfortable sending patient home today. (new 8L NC O2 requirement) Patient understands she must stay at least another night and hopefully, there is improvement. Converted to inpatient status on 03/29/18. - Patient Problems (1) COPD with exacerbation Current Visit: Yes Status: Acute Priority: High Code(s): J44.1 - CHRONIC OBSTRUCTIVE PULMONARY DISEASE W (ACUTE) EXACERBATION Comment: - IV steroids ==> convert to prednsione 03.30.18 - Azithromycin - Duonebs Q4 prn - O2 (2) Respiratory failure with hypoxia Current Visit: Yes Status: Acute Priority: High Code(s): J96.91 - RESPIRATORY FAILURE, UNSPECIFIED WITH HYPOXIA Comment: - 8L NC requirement when walking - PE very unlikely given neg d-dimer and clinical presentation (- CP, etc) - If patient does not improve by 03/30/18, recommend non-contrast chest CT to evaluate pulmonary parenchyma. - Low dose chest CT from late 2018 was reviewed, with some airspace disease at that time, but a more timely, dedicated study may be in order given current presentation.
[2018-03-29] MEDS: Benzocaine/Menthol LOZ* 1 LOZENGE PO PRN (19:54)
[2018-03-29] MEDS: Nicotine Patch Removal NOTE FOLLOW UP SCH (19:54)
[2018-03-30] MEDS: methylPREDNISolone 125 MG* 2 ML VIAL IV SCH ×2 (03:42→11:58)
[2018-03-30] MEDS: Losartan TAB* 25 MG PO SCH (09:03)
[2018-03-30] MEDS: Benzocaine/Menthol LOZ* 1 LOZENGE PO PRN (09:03)
[2018-03-30] MEDS: Docusate CAP* 100 MG PO SCH ×2 (09:03→19:49)
[2018-03-30] MEDS: Methadone TAB* 10 MG PO PRN (09:14)
[2018-03-30] MEDS: Nicotine PATCH 14 MG/24 HR* PATCH TRANSDERM SCH (09:33)
[2018-03-30] MEDS ORDERED: methylPREDNISolone 125 MG* 2 ML VIAL IV SCH (12:00)
[2018-03-30] MEDS ORDERED: methylPREDNISolone SOD 40 MG* 1 ML VIAL IV SCH (12:00)
[2018-03-30] MEDS: Azithromycin IV(*) 500 MG in NS 0.9% 250 ML* 250 ML IVPB SCH (12:35)
[2018-03-30] MEDS ORDERED: Enoxaparin(*) 40 MG/0.4 ML SYR SUBCUT SCH (16:00)
--- NOTE | 2018-03-30 16:01 | PN ---
Subjective Date of Service: 03/30/18 Interval History: Pt feels well. On 3 L 02 currently. would like to go home without 02. c/p occasional "cough attacks", nonproductive Family History: Unchanged from Admission Social History: Unchanged from Admission Past Medical History: Unchanged from Admission Objective Active Medications: Acetaminophen (Tylenol Tab*) 650 mg PO Q4H PRN PRN Reason: FEVER/PAIN Albuterol/Ipratropium (Duoneb (Albuterol 2.5 Mg/Ipratropium 0.5 Mg)) 1 neb INH Q4H PRN PRN Reason: SOB/WHEEZING Last Admin: 03/30/18 00:00 Dose: 1 neb Docusate Sodium (Colace Cap*) 100 mg PO BID [facility] Last Admin: 03/30/18 09:03 Dose: 100 mg Azithromycin 500 mg/ Sodium (Chloride) 250 mls @ 250 mls/hr IVPB 1300 [facility] Last Admin: 03/30/18 12:35 Dose: 250 mls/hr Losartan Potassium (Cozaar Tab*) 50 mg PO DAILY [facility] Last Admin: 03/30/18 09:03 Dose: 50 mg Methadone HCl (Dolophine Tab*) 10 mg PO Q6H PRN PRN Reason: PAIN Last Admin: 03/30/18 09:14 Dose: 10 mg Methylprednisolone Sodium Succinate (Solu-Medrol 40 Mg) 40 mg IV Q8H [facility] Last Admin: 03/30/18 12:35 Dose: 40 mg Nicotine (Nicotine Patch 14 Mg/24 Hr*) 1 patch TRANSDERM DAILY [facility] Last Admin: 03/30/18 09:33 Dose: Not Given Pharmacy Profile Note (Nicotine Patch Removal Note*) 1 note FOLLOW UP 2100 [facility] Last Admin: 03/29/18 19:54 Dose: 1 note Throat Lozenges (Chloraseptic Namrata*) 1 namrata PO Q6H PRN PRN Reason: SORE THROAT Last Admin: 03/30/18 09:03 Dose: 1 namrata Vital Signs - 8 hr 03/30/18 03/30/18 03/30/18 08:00 09:14 11:34 Temperature 98.2 F Pulse Rate 95 Respiratory 18 20 18 Rate Blood Pressure 158/77 (mmHg) O2 Sat by Pulse 96 90 Oximetry 03/30/18 03/30/18 14:00 14:53 Temperature Pulse Rate 82 Respiratory 18 20 Rate Blood Pressure 128/82 (mmHg) O2 Sat by Pulse Oximetry Oxygen Devices in Use Now: Nasal Cannula Appearance: 67 yo f in NAD, aAOx3 Eyes: No Scleral Icterus, PERRLA Ears/Nose/Mouth/Throat: NL Teeth, Lips, Gums, Mucous Membranes Moist Neck: NL Appearance and Movements; NL JVP, Trachea Midline Respiratory: Symmetrical Chest Expansion and Respiratory Effort, - - coarse breath sounds b/l Cardiovascular: NL Sounds; No Murmurs; No JVD, RRR Abdominal: NL Sounds; No Tenderness; No Distention Lymphatic: No Cervical Adenopathy Extremities: No Edema, No Clubbing, Cyanosis Skin: No Rash or Ulcers, No Nodules or Sclerosis Neurological: Alert and Oriented x 3, NL Muscle Strength and Tone Result Diagrams: 03/28/18 09:06 03/28/18 09:09 Microbiology and Other Data: Microbiology 03/28/18 10:15 Urine Culture - Final Urine 03/28/18 12:07 Influenza Types A,B Antigen - Final Nasopharyngeal Specimen received for Influenza A/B Molecular testing Assess/Plan/Problems-Billing . Assessment: 67 year old female with COPD and now, acute exacerbation and hypoxic respiratory failure. Converted to inpatient status on 03/29/18. - Patient Problems (1) COPD with exacerbation Comment: - IV steroids ==> convert to prednisone 2.. - Azithromycin - Duonebs Q4 prn - O2 (2) Respiratory failure with hypoxia Comment: - still on 3 L 02 but getting better - PE very unlikely given neg d-dimer and clinical presentation (- CP, etc) (3) DVT prophylaxis Comment: Lovenox Status and Disposition: Inpatient, weaning off 02.
[2018-03-30] MEDS: Nicotine Patch Removal NOTE FOLLOW UP SCH (19:50)
[2018-03-31 06:23] LABS: BUN/Creatinine Ratio 36.8 (8-20); Calcium 9.1 mg/dL (8.6-10.3); EGFR African American 78.6 (>60); EGFR Non-African American 64.9 (>60); Potassium 4.2 mmol/L (3.5-5.0)
[2018-03-31] MEDS ORDERED: predniSONE TAB* 20 MG PO SCH (09:00)
[2018-03-31] MEDS: Losartan TAB* 25 MG PO SCH (09:17)
[2018-03-31] MEDS: Methadone TAB* 10 MG PO PRN (09:18)
[2018-03-31] MEDS: Docusate CAP* 100 MG PO SCH (09:18)
[2018-03-31] MEDS: Nicotine PATCH 14 MG/24 HR* PATCH TRANSDERM SCH (09:39)
[2018-03-31 11:35] VITALS: BP 140/79
--- NOTE | 2018-03-31 14:13 | DS ---
CC: Dr. Arenas * DISCHARGE SUMMARY: DATE OF ADMISSION: 03/28/18 DATE OF DISCHARGE: 03/31/18 PRIMARY CARE PROVIDER: Dr. Arenas. DISCHARGE DIAGNOSES: 1. Acute chronic obstructive pulmonary disease exacerbation. 2. Acute hypoxemic respiratory failure due to above. 3. The patient is going to be using oxygen at 2 L while ambulating at discharge. SECONDARY DIAGNOSES: 1. Hypertension. 2. History of colon polyps with removal in 2006. 3. History of right hand arthritis. 4. History of squamous cell carcinoma of the left arm. 5. History of lumbar spine surgery in 1998. 6. Hemorrhoidectomy. 7. History of cholecystectomy. 8. History of joint and finger surgeries on bilateral hands. 9. History of ureteral stent placement in 2013 for nephrolithiasis. MEDICATIONS AT DISCHARGE: Include: 1. Prednisone taper at 20 mg tablets 3 tablets daily for 2 days, then 2 tablets daily for 2 days, then 1 tablet daily for 2 hours, then half a tablet daily for 2 days, then stop. 2. Azithromycin 250 mg daily for a total of 2 days to complete 5-day treatment. 3. Albuterol MDI 2 puffs every 4 hours p.r.n. The remaining medications are unchanged and include: 1. Losartan/hydrochlorothiazide 1 tablet q.a.m. 2. Metolazone 1 to 2 tablets every 6 hours p.r.n. LABORATORY DATA AND STUDIES PERFORMED DURING THE HOSPITAL STAY: Included on 09/09, sodium of 131, potassium , chloride 108, carbon dioxide 30, BUN 32 , creatinine 0.87. Microbiology test shows no growth of clinically significant organisms on the urine cultures. ABG obtained on 03/28/18 showed pH of 7.46, PCO2 of 38, PO2 of 66, and bicarb level of 27. The patient's portable chest x-ray, impression: "No radiographic evidence of acute pulmonary disease." HOSPITALIZATION COURSE: Marilee Craven is a 67-year-old female with a history of 1 pack per day smoking who presented to the hospital complaining of cough and wheezing. The patient was significantly hypoxemic and required supplementation with oxygen. Gradually her acute hypoxemic respiratory failure started resolving. By the time of discharge, she was not in need of oxygen at rest, but she still needed it. At discharge, she is going to prescribed to be using 2 L of oxygen with ambulation. At the time of discharge, the patient was not wheezing at all and her respiratory symptoms basically resolved. She is going to be discharged home on oral prednisone taper and to finish her azithromycin course of treatment. PHYSICAL EXAM AT TIME OF DISCHARGE: Blood pressure of 140/79, heart rate of 93 and regular, respiratory rate 14, oxygen saturation 94% on room air, temperature 98.1. General: Patient is a very pleasant 67-year-old female who is in no acute distress, alert, awake, and oriented x3. HEENT: Head: Atraumatic, normocephalic. Eyes: Pupils are equal, reactive to light and accommodation. Oropharynx is clear. Mucosa moist. Neck: Supple. No JVD. No bruits bilaterally. Cardiovascular: Regular rate and rhythm. No murmur. Respiratory: Clear to auscultation bilaterally. Abdomen: Soft, nontender. Bowel sounds are present in all 4 quadrants. Extremities: There is no edema. Pulses +2 bilaterally. There is no clubbing or cyanosis. On neuro evaluation, speech is clear. Cranial nerves II through XII grossly intact. Motor strength is 5/5 bilaterally. Please note that this is a short summary of patient's hospitalization. Please refer to further medical records for details. The patient is recommended to follow up with her primary care provider in approximately 4 to 7 days. TIME SPENT: Approximately 35 minutes was spent on the patient's discharge. [id number]/[facility] #: [id number] MTDD
== END 2018-03-31 13:30 | disposition home or self-care (01) | DRG 189 ==
LOC: ED 08:40 → MED 11:54 → OBSVTOIN 03-29 11:39
PROVIDERS: ADMIT Internal Medicine; ATTEND Internal Medicine
DX: J96.01 Acute respiratory failure with hypoxia (principal); J44.1 Chronic obstructive pulmonary disease with (acute) exacerbation; F17.210 Nicotine dependence, cigarettes, uncomplicated; I10 Essential (primary) hypertension; N20.0 Calculus of kidney; M79.7 Fibromyalgia; M19.012 Primary osteoarthritis, left shoulder; Z85.828 Personal history of other malignant neoplasm of skin; M19.041 Primary osteoarthritis, right hand; Z90.49 Acquired absence of other specified parts of digestive tract; Z96.698 Presence of other orthopedic joint implants; Z96.0 Presence of urogenital implants; Z91.09 Other allergy status, other than to drugs and biological substances; Z86.010 Personal history of colon polyps; Z87.442 Personal history of urinary calculi; Z71.6 Tobacco abuse counseling; Z99.81 Dependence on supplemental oxygen; Z82.49 Family history of ischemic heart disease and other diseases of the circulatory system; Z83.3 Family history of diabetes mellitus
CPT/HCPCS: 36415; 71046; 80048; 80053; 81003; 81015; 82550; 82553; 82803; 83605; 83880; 84484; 85025; 85379; 85730; 86140; 87086; 93005; 94640; 99282; A9270-GY; G0378; J0456; J1650; J2920; J2930; J7512

== ENCOUNTER 2019-03-17 10:48 | Inpatient (IN) | payer MEDICARE ==
[2019-03-17] MEDS ORDERED: Dexamethasone IV* 4 MG/ML 1 ML (4 MG) IV SLOW PU ONE (11:16)
--- OUTSIDE RECORDS SUMMARY | 2019-03-17 11:21 | XMS REPORT | Continuity of Care Document ---
:1950 External Reference #:[id number] Author Name Mahendra Arenas M.D. Address [address] [place] [address] [address] [place] [address] Care Team Providers Name Role Phone [facility] - Care Team Information Fittings Tightener [phone] [facility] - Urology Care Team Information Fittings Tightener [phone] Drea Arreola MD - Orthopaedic Care Team Information Fittings Tightener Surgery Ari Gonzalez Md - Surgical Care Team Information Fittings Tightener Oncology Geovanni Melendez MD - Plastic and Care Team Information Fittings Tightener Reconstructive Surgery HCP/LW on file Care Team Information Fittings Tightener Unavailable Harley Waddell DO - Cardiovascular Care Team Information Fittings Tightener Disease Jimmy Sanchez MD - Gastroenterology Care Team Information Fittings Tightener Problems Active Problems Provider Date History of polyp of colon Mahendra Arenas M.D. Onset: 02/02/2003 Low back pain Mahendra Arenas M.D. Onset: 01/09/2004 Bladder muscle dysfunction - overactive Mahendra Arenas M.D. Onset: 2003 Impaired fasting glycaemia Mahendra Arenas M.D. Onset: 01/23/2005 Disorder of lipid metabolism Mahendra Arenas M.D. Onset: 01/23/2005 Tobacco user Mahendra Arenas M.D. Onset: 06/21/2007 Arthralgia of the lower leg Mahendra Arenas M.D. Onset: 11/08/2009 Acute maxillary sinusitis Jluis Soto D.O. Onset: 03/02/2013 Benign essential hypertension Mahendra Arenas M.D. Onset: 12/19/2013 Urolith Mahendra Arenas M.D. Onset: 12/19/2013 Essential hypertension Mahendra Arenas M.D. Onset: 12/19/2014 Pure hypercholesterolemia Mahendra Arenas M.D. Onset: 12/19/2014 Social History Type Date Description Comments Sex Unknown Tobacco Use Start: Unknown End: Former Cigarette Smoker quit 03/28/18 when admitted Unknown to hospital w/ COPD exacerbation and hypoxemia Was smoking 6-7 cigarettes/day as of 11/18/17. <1/2 ppd; quit using Chantix 01/04; as of 12/19/13 is smoking "a couple of cigarettes a week"; "a couple a day" as of 12/19/14 At peak smoked 1-1.5ppd for >30yrs Started smoking regularly at age 16 ETOH Use Rare Alcohol Use Tobacco Use Start: Unknown End: Patient is a former quit late Mar 2018 Unknown smoker Smoking Status Reviewed: 07/28/18 Patient is a former quit late Mar 2018 smoker Allergies, Adverse Reactions, Alerts Active Allergies Reaction Severity Comments Date NKDA 04/25/2003 Adhesives rash, burning sensation, swelling 11/07/2012 Medications Active Medications SIG Qnty Indications Ordering Date Provider Prednisone 3 by mouth every 21tabs J44.1 Silcoff, 02/13/2019 20mg morning for 5 days Darin Mccray Tablets then 2 every morning for 3 days then stop it Losartan Take 1/2 90Tablet Silco, 01/22/2019 Potassium/Hydrochlor (One-Half) Tablet Darin Mccray othiazide By Mouth In The 100-25mg Morning For High Tablets Blood Pressure Anoro Ellipta inhale 1 puff by 60units J44.9 Silcoff, 01/11/2019 mouth daily (use Darin Mccray 62.5-25mcg/Inh instead of Aerosol trelegy) Polyethylene Glycol use 1 cap full in 500gm K59.00 Silcoff, 09/07/2018 3350 8 oz of any fluid Darin Mccray Powder every day; adjust dose as directed w/ goal of 1-2 soft bms/day Acetaminophen as directed as Unknown 07/21/2018 500mg needed for pain Tablets Portable Oxygen use as directed R06.00 Silcoff, 06/13/2018 Compressor Darin Mccray Rosuvastatin Calcium take one tablet by 90tabs E78.00 Silcoff, 05/04/2018 mouth every day to Darin Mccray 10mg Tablets lower cholesterol and reduce risk of heart disease Oxygen NC 2L via NC Unknown 03/31/2018 w/ambulation as needed Albuterol Sulfate 2 puffs every 4 8.500gm J44.1 Silcoff, 03/31/2018 HFA hours as needed Darin Mccray 108(90Base) for cough, mcg/Act Aerosol wheezing, sob Methadone HCL 1-2 by mouth 100tabs M54.5 Silcoff, 01/19/2005 10mg q6-12h for severe Darin Mccray Tablets pain id#[id number] History Medications Azithromycin 2 by mouth on day 6tabs J44.1 Deepa, 02/08/2019 - 250mg then 1 by mouth Darin Mccray 02/13/2019 Tablets daily for 4 more days; for COPD exacerbation PT For Right evaluate and treat, M25.511 Silcopatricia, 01/11/2019 - Shoulder Pain modalities as Darin Mccray 02/07/2019 needed, instruct in hep Losartan take 1/2 tablet 90tabs I10 Silcoff, 10/17/2018 - Potassium/Hydrochlo every morning for Darin Mccray 01/21/2019 rothiazide high blood pressure 100-25mg Tablets Medications Administered in Office Medication SIG Qnty Indications Ordering Provider Date injection, kenalog, 10 mg Mahendra Arenas M.D. 08/20/2015 Injection injection, kenalog, 10 mg Mahendra Arenas M.D. 04/30/2015 Injection Immunizations CPT Code Status Date Vaccine Lot # 28877 Given 12/22/2018 Influenza Vaccine, Inactivated, Subunit, [id number] Adjuvanted, For Intrmus 55447 Given 12/21/2017 Influenza Vaccine, Inactivated, Subunit, [id number] Adjuvanted, For Intrmusc 39229 Given 12/01/2016 Pneumococcal Immunization 88468 Given 12/01/2016 Influenza Vaccine Split Virus Preservative Free Im Use (hi-dose) 13169 Given 12/20/2015 Influenza Virus Vaccine, Quadrivalent, Split, [id number] Preservative Free 39854 Given 12/20/2015 Prevnar 13 [id number] U-Flu Given 02/12/2015 Influenza,Unspecified 85492 Given 12/23/2013 Flu, Split Virus 3Yrs 86041 Given 04/05/2013 Zostavax 02822 Given 12/21/2012 Flu, Split Virus 3Yrs 07184 Given 11/09/2011 Flu, Split Virus 3Yrs [id number] 06466 Given 11/11/2010 Flu, Split Virus 3Yrs [id number] 78110 Given 05/09/2010 Adacel or Boostrix, TDaP [id number] 26832 Given 12/23/2009 Pneumococcal Immunization 58007 Given 01/03/2008 Flu, Split Virus 3Yrs 71767 Given 12/20/2006 Flu, Split Virus 3Yrs [id number] 00538 Given 11/04/2005 Td Immunization td-155 Vital Signs Date Vital Result Comment 02/13/2019 11:58am BP Systolic 132 mmHg BP Diastolic 70 mmHg Body Temperature 98.8 F 02/08/2019 1:25pm BP Systolic 130 mmHg BP Diastolic 82 mmHg Heart Rate 84 /min reg Respiratory Rate 16 /min not laboured Body Temperature 98.3 F Weight 185.00 lb w/shoes Results Test Acquired Date Facility Test Result H/L Range Note Urine Micro Inhouse 09/07/2018 In House [facility] WBC 1-3 Ua RBC 2-5 Ua Casts - Ua Epi - Ua Other - Ua Glucose - Ua Bilirubin - Ua Ketones - Ua Specific [place] 1.010 Ua Blood n h tr Ua PH 6.0 Ua Protein tr Ua Urobilinogen - Ua Nitrite - Ua Leukocytes - Lipid Profile (Trig/Chol/HDL) 09/07/2018 [facility] Triglycerides 103 mg/dL 6 [phone] Cholesterol 139 mg/dL 2 HDL Cholesterol 55.7 mg/dL 3 LDL Cholesterol 63 mg/dL 4 Xray 09/07/2018 [facility] Medicine X-Ray, Knee, Right, 4 Or More OA/ DJD 5 Views 1 Desirable: <150 Borderline High: 150-199 High: 200-499 Very High: >500 2 Desirable: <200 Borderline High: 200-239 High: >239 3 Low: <40 Desirable: 40-60 High: >60 4 Desirable: <100 Near Optimal: 100-129 Borderline High: 130-159 High: 160-189 Very High: >189 5 Advanced degenerative changes Procedures Date Code Description Status 02/01/2019 27474648 Mammogram Completed 01/11/2019 64673 X-Ray Shoulder Two Or More Views Completed 09/07/2018 38255 X-Ray Knee, Complete Completed 07/13/2013 03338301 Colonoscopy Completed Medical Devices Description No Information Available Encounters Type Date Location Provider Dx Diagnosis Office Visit 02/13/2019 Main Office Mahendra Arenas J44.1 Chronic obstructive 11:30a M.D. pulmonary disease w (acute) exacerbation Office Visit 02/08/2019 Main Office Mahendra Arenas J44.1 Chronic obstructive 1:30p M.D. pulmonary disease w (acute) exacerbation R05 Cough Office Visit 01/11/2019 11:00a Main Office Mahendra Arenas M25.511 Pain in right M.D. shoulder J44.9 Chronic obstructive pulmonary disease, unspecified Z86.010 Personal history of colonic polyps Z68.30 Body mass index (BMI) 30.0-30.9, adult Office Visit 09/07/2018 11:00a Main Office Deepa K59.00 ConstipationMahendra M.D. unspecified J44.9 Chronic obstructive pulmonary disease, unspecified M25.561 Pain in right knee M17.11 Unilateral primary osteoarthritis, right knee E78.00 Pure hypercholesterolemia, unspecified I10 Essential (primary) hypertension H53.8 Other visual disturbances Assessments Date Code Description Provider 02/13/2019 J44.1 Chronic obstructive pulmonary disease with Mahendra Arenas M.D. (acute) exacerbation 02/08/2019 J44.1 Chronic obstructive pulmonary disease with Mahendra Arenas M.D. (acute) exacerbation 02/08/2019 R05 Cough Mahendra Arenas M.D. 01/11/2019 M25.511 Pain in right shoulder Mahendra Arenas M.D. 01/11/2019 J44.9 Chronic obstructive pulmonary disease, Mahendra Arenas M.D. unspecified 01/11/2019 Z86.010 Personal history of colonic polyps Mahendra Arenas M.D. 01/11/2019 Z68.30 Body mass index (BMI) 30.0-30.9, adult Mahendra Arenas M.D. 12/22/2018 Z23 Encounter for immunization Nurse's Schedule 12/22/2018 Z41.8 Encounter for other procedures for purposes Nurse's Schedule other than remedying health state 09/07/2018 K59.00 Constipation, unspecified Mahendra Arenas M.D. 09/07/2018 J44.9 Chronic obstructive pulmonary disease, Mahendra Arenas M.D. unspecified 09/07/2018 M25.561 Pain in right knee Mahendra Arenas M.D. 09/07/2018 M17.11 Unilateral primary osteoarthritis, right Mahendra Arenas M.D. knee 09/07/2018 E78.00 Pure hypercholesterolemia, mckaylaified Mahendra Arenas M.D. 09/07/2018 I10 Essential (primary) hypertension Mahendra Arenas M.D. 09/07/2018 H53.8 Other visual disturbances Mahendra Arenas M.D. Plan of Treatment 07/28/2018 - Tracie Tay, PAS83.91xA Sprain of unspecified site of right knee , initial encounterNew Medication:Meloxicam 7.5 mg - 1 tab by mouth up to twice daily as needed for knee painCyclobenzaprine HCL 10 mg - 1 tab by mouth three times a day as needed for spasmsKnee Brace/Flexible Stays/Large - use as directedComments:Right knee sprain. Rx for knee brace, meloxicam and cyclobenzaprine. Pt uses methadone for pain. Rest, ice knee. Recheck if sx not improving.K59.00 Constipation, unspecifiedNew Medication:Colace 100 mg - 1 by mouth twice a day to keep stools softComments:Rx for colace. Discussed proper diet and fluid intake. Recheck if sx not improving.E66.3 AsvyttxjcnP44.31 Body mass index (BMI) 31.0-31.9, adult Functional Status Description No Information Available Mental Status Description No Information Available Referrals Refer to Reason for Referral Status Appt Date Jimmy Sanchez MD 68yo woman w/ Hx of adenomatous colon polyps. Sent 2019 Last C-scope was ~5.5yrs ago so she is due again. Testing - Consult if Abnormal - Follow up needed [facility] [address] [address] [phone]
--- OUTSIDE RECORDS SUMMARY | 2019-03-17 11:21 | XMS REPORT | Continuity of Care Document ---
:1950 External Reference #:[id number] Author Name Mahendra Arenas M.D. Address [address] [place] [address] [address] [place] [address] Care Team Providers Name Role Phone [facility] - Care Team Information Improvement Analyst [phone] [facility] - Urology Care Team Information Improvement Analyst [phone] Drea Arreola MD - Orthopaedic Care Team Information Improvement Analyst [phone] Surgery Ari Gonzalez Md - Surgical Care Team Information Improvement Analyst Oncology Geovanni Melendez MD - Plastic and Care Team Information Improvement Analyst Reconstructive Surgery HCP/LW on file Care Team Information Improvement Analyst Unavailable Harley Waddell DO - Cardiovascular Care Team Information Improvement Analyst [phone] Disease Jimmy Sanchez MD - Gastroenterology Care Team Information Improvement Analyst Problems Active Problems Provider Date History of [...] Medications SIG Qnty Indications Ordering Date Provider Losartan Take 1/2 90Tablet Silcoff, 01/22/2019 Potassium/Hydrochlor (One-Half) Tablet Darin Mccray othiazide By Mouth In The 100-25mg Morning For High Tablets Blood Pressure Anoro Ellipta inhale 1 puff by 60units J44.9 Silcoff, 01/11/2019 mouth daily (use Darin Mccray 62.5-25mcg/Inh instead of Aerosol Trelegy) PT For Right evaluate and M25.511 Silcoff, 01/11/2019 Shoulder Pain treat, modalities Darin Mccray as needed, instruct in hep Polyethylene Glycol use 1 cap full in 500gm K59.00 Silcoff, 09/07/2018 3350 8 oz of any fluid Darin Mccray Powder every day; adjust dose as directed w/ goal of 1-2 soft bms/day Acetaminophen as directed as Unknown 07/21/2018 500mg needed for pain Tablets Portable Oxygen use as directed R06.00 Silcoff, 06/13/2018 Compressor Darin Mccrya Rosuvastatin Calcium take one tablet by 90tabs E78.00 Silcopatricia, 05/04/2018 mouth every day to Darin Mccray 10mg Tablets lower cholesterol and reduce risk of heart disease Oxygen NC 2L via NC Unknown 03/31/2018 w/ambulation as needed Albuterol Sulfate 2 puffs every 4 8.500gm J44.1 Silcoff, 03/31/2018 HFA hours as needed Darin Mccray 108(90Base) for cough, mcg/Act Aerosol wheezing, SOB Methadone HCL 1-2 by mouth 100tabs M54.5 Silcoff, 01/19/2005 10mg q6-12h for severe Darin Mccray Tablets pain id#[id number] History Medications Losartan take 1/2 90tabs I10 Silcopatricia, 10/17/2018 - Potassium/Hydrochlorothiazide tablet every Darin Mccray 01/21/2019 100-25mg Tablets morning for high blood pressure Colace 100mg 1 by mouth 60caps K59.00 Deepa, 2018 - Capsules twice a day Darin Mccray 09/06/2018 to keep stools soft Meloxicam 1 tab by 60tabs S83.91x Deepa, 07/28/2018 - 7.5mg Tablets mouth up to Noah Mccray M.D. 09/06/2018 twice daily as needed for knee pain Cyclobenzaprine HCL 1 tab by 90tabs S83.91x Deepa, 07/28/2018 - 10mg Tablets mouth three Noah Mccray M.D. 09/06/2018 times a day as needed for spasms Knee Brace/Flexible Stays/Large use as 1units S83.91x Deepa, 07/28/2018 - Misc directed Noah Mccray M.D. 09/06/2018 Medications Administered in Office Medication SIG Qnty Indications Ordering Provider Date injection, kenalog, 10 mg Mahendra Arenas M.D. 08/20/2015 Injection injection, kenalog, 10 mg Mahendra Arenas M.D. 04/30/2015 Injection Immunizations CPT Code Status Date Vaccine Lot # [id number] Given 12/22/2018 Influenza Vaccine, Inactivated, Subunit, [id number] Adjuvanted, For Intrmusc 43833 Given 12/21/2017 Influenza Vaccine, Inactivated, Subunit, [id number] Adjuvanted, For Intrmusc 69428 Given 12/01/2016 Pneumococcal Immunization 96450 Given 12/01/2016 Influenza Vaccine Split Virus Preservative Free Im Use (hi-dose) 32124 Given 12/20/2015 Influenza Virus Vaccine, Quadrivalent, Split, [id number] Preservative Free 78333 Given 12/20/2015 Prevnar 13 [id number] U-Flu Given 02/12/2015 Influenza,Unspecified 81166 Given 12/23/2013 Flu, Split Virus 3Yrs 20708 Given 04/05/2013 Zostavax 31997 Given 12/21/2012 Flu, Split Virus 3Yrs 42694 Given 11/09/2011 Flu, Split Virus 3Yrs [id number] 27370 Given 11/11/2010 Flu, Split Virus 3Yrs [id number] 07192 Given 05/09/2010 Adacel or Boostrix, TDaP [id number] 39679 Given 12/23/2009 Pneumococcal Immunization 17957 Given 01/03/2008 Flu, Split Virus 3Yrs 65971 Given 12/20/2006 Flu, Split Virus 3Yrs [id number] 06676 Given 11/04/2005 Td Immunization td-155 Vital Signs Date Vital Result Comment 01/11/2019 11:14am BP Systolic 140 mmHg BP Diastolic 74 mmHg Height 65 inches 5'5" Weight 185.00 lb BMI (Body Mass Index) 30.8 kg/m2 09/07/2018 11:03am BP Systolic 128 mmHg BP Diastolic 76 mmHg Weight 185.00 lb Results Test Acquired Date Facility Test Result H/L Range Note Urine Micro Inhouse 09/07/2018 In House Ua WBC 1-3 Ua RBC 2-5 Ua Casts - Ua Epi - Ua Other - Ua Glucose - Ua Bilirubin - Ua Ketones - Ua Specific [place] 1.010 Ua Blood n h tr Ua PH 6.0 Ua Protein tr Ua Urobilinogen - Ua Nitrite - Ua Leukocytes - Lipid Profile (Trig/Chol/HDL) 09/07/2018 [facility] Triglycerides 103 mg/dL 8 [phone] Cholesterol 139 mg/dL 2 HDL Cholesterol 55.7 mg/dL 3 LDL Cholesterol 63 mg/dL 4 Xray 09/07/2018 [facility] X-Ray, Knee, Right, 4 Or More OA/ DJD 5 Views 1 Desirable: <150 Borderline High: 150-199 High: 200-499 Very High: >500 2 Desirable: <200 Borderline High: 200-239 High: >239 3 Low: <40 Desirable: 40-60 High: >60 4 Desirable: <100 Near Optimal: 100-129 Borderline High: 130-159 High: 160-189 Very High: >189 5 Advanced degenerative changes Procedures Date Code Description Status 01/11/2019 27391 X-Ray Shoulder Two Or More Views Completed 09/07/2018 55755 X-Ray Knee, Complete Completed 01/22/2017 29543833 Mammogram Completed 07/13/2013 28789868 Colonoscopy Completed Medical Devices Description No Information Available Encounters Type Date Location Provider Dx Diagnosis Office Visit 01/11/2019 Main Office Mahendra Arenas, M25.511 Pain in right 11:00a M.D. shoulder J44.9 Chronic obstructive pulmonary disease, unspecified Z86.010 Personal history of colonic polyps Z68.30 Body mass index (BMI) 30.0-30.9, adult Office Visit 09/07/2018 11:00a Main Office Deepa, K59.00 ConstipationMahendra M.D. unspecified J44.9 Chronic obstructive pulmonary disease, unspecified M25.561 Pain in right knee M17.11 Unilateral primary osteoarthritis, right knee E78.00 Pure hypercholesterolemia, unspecified I10 Essential (primary) hypertension H53.8 Other visual disturbances Office Visit 07/28/2018 11:05a Main Office Tracie Tay, S83.91xA Sprain of PA unspecified site of right knee, initial encounter K59.00 Constipation, unspecified E66.3 Overweight Z68.31 Body mass index (BMI) 31.0-31.9, adult Assessments Date Code Description Provider 01/11/2019 M25.511 Pain in right shoulder Mahendra [...] Arenas M.D. knee 09/07/2018 E78.00 Pure hypercholesterolemia, Mahendra Bull M.D. 09/07/2018 I10 Essential (primary) hypertension Mahendra Arenas M.D. 09/07/2018 H53.8 Other visual disturbances Mahendra Arenas M.D. 07/28/2018 S83.91xA Sprain of unspecified site of right knee, Tracie Tay PA initial encounter 07/28/2018 K59.00 Constipation, unspecified Tracie Tay PA 07/28/2018 E66.3 Overweight Tracie Tay PA 07/28/2018 Z68.31 Body mass index (BMI) 31.0-31.9, adult Tracie Tay PA Plan of Treatment 07/28/2018 - Tracie Tay PAS83.91xA Sprain of unspecified site of right [...] fluid intake. Recheck if sx not improving.E66.3 ChmelbzenqC97.31 Body mass index (BMI) 31.0-31.9, adult Functional Status Description No Information Available Mental Status Description No Information Available Referrals Refer to Reason for Referral Status Appt Date Jimmy Sanchez MD 68yo woman w/ Hx of adenomatous colon polyps. Created Last C-scope was ~5.5yrs ago so she is due again. Testing - Consult if Abnormal - Follow up needed [facility] [address] [address] [phone]
--- OUTSIDE RECORDS SUMMARY | 2019-03-17 11:21 | XMS REPORT | Continuity of Care Document ---
:1950 External Reference #:[id number] Author Name Lesley Rouse MD Address [address] [place] [id number] Care Team Providers Name Role Phone Mahendra Arenas MD Care Team Information Strategy Analyst [phone] Problems Description No Information Available Social History Type Date Description Comments Sex Unknown Tobacco Use Start: Unknown End: Unknown Patient is a former smoker Smoking Status Reviewed: 03/07/19 Patient is a former smoker Allergies, Adverse Reactions, Alerts Description No Known Drug Allergies Medications Active Medications SIG Qnty Indications Ordering Date Provider Losartan Take 1/2 90tabs Silcoff, 01/22/2019 Potassium/Hydrochlor (One-Half) Tablet MD Mahendra othiazide By Mouth In The 100-25mg Morning For High Tablets Blood Pressure Anoro Ellipta inhale 1 puff by 60units J44.9 Silcoff, 01/11/2019 mouth daily (use MD Mahendra 62.5-25mcg/Inh instead of Aerosol Trelegy) Acetaminophen as directed as Unknown 07/21/2018 500mg needed for pain Tablets Rosuvastatin Calcium take one tablet by 90tabs E78.00 Silcoff, 05/04/2018 mouth every day to MD Mahendra 10mg Tablets lower cholesterol and reduce risk of heart disease Albuterol Sulfate 2 puffs every 4 8.500units J44.1 Silcoff, 03/31/2018 HFA hours as needed MD Mahendra 108(90Base) for cough, mcg/Act Aerosol wheezing, SOB Methadone HCL 1-2 by mouth 100tabs M54.5 Silcoff, 01/19/2005 10mg q6-12h for severe MD Mahendra Tablets pain id#[id number] Miralax 1 Scoop Daily Unknown 3350NF Powder History Medications Suprep Bowel Prep Kit as directed 1units Lesley 03/07/2019 - MD Nasim 03/07/2019 17.5-3.13-1.6GM/177ML Solution Immunizations Description No Information Available Vital Signs Date Vital Result Comment 03/07/2019 1:58pm Height 65 inches 5'5" Weight 182.00 lb BP Systolic 168 mmHg BP Diastolic 93 mmHg Heart Rate 105 /min BMI (Body Mass Index) 30.3 kg/m2 Results Test Acquired Date Facility Test Result H/L Range Note Lipid Profile 09/07/2018 [facility] Triglycerides 103 mg/dL 1 (Trig/Chol/HDL) Cholesterol 139 mg/dL 2 HDL Cholesterol 55.7 mg/dL 3 LDL Cholesterol 63 mg/dL 4 1 Desirable: <150 Borderline High: 150-199 High: 200-499 Very High: >500 2 Desirable: <200 Borderline High: 200-239 High: >239 3 Low: <40 Desirable: 40-60 High: >60 4 Desirable: <100 Near Optimal: 100-129 Borderline High: 130-159 High: 160-189 Very High: >189 Procedures Description No Information Available Medical Devices Description No Information Available Encounters Description No Information Available Assessments Date Code Description Provider 03/07/2019 Z86.010 Personal history of colonic polyps Lesley Rouse MD 03/07/2019 Z80.0 Family history of malignant neoplasm of Lesley Rouse MD digestive organs 03/07/2019 K59.00 Constipation, unspecified Lesley Rouse MD 03/07/2019 J44.9 Chronic obstructive pulmonary disease, Lesley Rouse MD unspecified Plan of Treatment Future Appointment(s):05/17/2019 11:00 am - Lesley Rouse MD at [facility]03/07/2019 - Lesley Rouse MDZ86.010 Personal history of colonic fpbopyN75.0 Family history of malignant neoplasm of digestive peexweQ81.00 Constipation, jbshrzbyfysY20.9 Chronic obstructive pulmonary disease, unspecified Functional Status Description No Information Available Mental Status Description No Information Available Referrals Description No Information Available
--- OUTSIDE RECORDS SUMMARY | 2019-03-17 11:21 | XMS REPORT | Continuity of Care Document ---
:1950 External Reference #:[id number] Author Name Elissa Sadler MD Address [address] [place] [address] Care Team Providers Name Role Phone [facility] - Care Team Information Skating Rink Ice Maker [phone] [facility] - Urology Care Team Information Skating Rink Ice Maker [phone] Drea Arreola MD - Orthopaedic Care Team Information Skating Rink Ice Maker Surgery Ari Gonzalez Md - Surgical Care Team Information Skating Rink Ice Maker [phone] Oncology Geovanni Melendez MD - Plastic and Care Team Information Skating Rink Ice Maker [phone] Reconstructive Surgery HCP/LW on file Care Team Information Skating Rink Ice Maker Unavailable Harley Waddell DO - Cardiovascular Care Team Information Skating Rink Ice Maker [phone] Disease Jimmy Sanchez MD - Gastroenterology Care Team Information Skating Rink Ice Maker Problems Active Problems Provider Date History of [...] Mar 2018 Unknown smoker Smoking Status Reviewed: 03/02/19 Patient is a former quit late Mar 2018 smoker Allergies, Adverse Reactions, Alerts Active Allergies Reaction Severity Comments Date NKDA 04/25/2003 Adhesives rash, burning sensation, swelling 11/07/2012 Medications Active Medications SIG Qnty Indications Ordering Date Provider Prednisone 3 tab by mouth 15tabs R06.00 Elissa Sadler 03/02/2019 20mg every morning for MD Ken Tablets five days Losartan Take 1/2 90Tablet Silco, 01/22/2019 Potassium/Hydrochlor [...] q6-12h for severe Darin Mccray Tablets pain id#[id number] History Medications Prednisone 3 by mouth every 21tabs J44.1 Silcoff, 02/13/2019 - 20mg morning for 5 days Darin Mccray 02/21/2019 Tablets then 2 every morning for 3 days then stop it Azithromycin 2 by mouth on day 6tabs J44.1 Silcoff, 02/08/2019 - 250mg then 1 by mouth Darin Mccray 02/13/2019 Tablets daily for 4 more days; for COPD exacerbation PT For Right evaluate and treat, M25.511 Silco, 01/11/2019 - Shoulder Pain modalities as Darin Mccray 02/07/2019 needed, instruct in hep Losartan take 1/2 tablet 90tabs I10 Silcopatricia, 10/17/2018 - Potassium/Hydrochlo every morning for Darin Mccray 01/21/2019 rothiazide high blood pressure 100-25mg Tablets Medications Administered in Office Medication SIG Qnty Indications Ordering Provider Date injection, kenalog, 10 mg Mahendra Arenas M.D. 08/20/2015 Injection injection, kenalog, 10 mg Mahendra Arenas M.D. 04/30/2015 Injection Immunizations CPT Code Status Date Vaccine Lot # [id number] Given 12/22/2018 Influenza Vaccine, Inactivated, Subunit, [id number] Adjuvanted, For Intrmus 65318 Given 12/21/2017 Influenza Vaccine, Inactivated, Subunit, [id number] Adjuvanted, For Intrmusc 18841 Given 12/01/2016 Pneumococcal Immunization 22980 Given 12/01/2016 Influenza Vaccine Split Virus Preservative Free Im Use (hi-dose) 60718 Given 12/20/2015 Influenza Virus Vaccine, Quadrivalent, Split, [id number] Preservative Free 90156 Given 12/20/2015 Prevnar 13 [id number] U-Flu Given 02/12/2015 Influenza,Unspecified 69461 Given 12/23/2013 Flu, Split Virus 3Yrs 20857 Given 04/05/2013 Zostavax 39504 Given 12/21/2012 Flu, Split Virus 3Yrs 23518 Given 11/09/2011 Flu, Split Virus 3Yrs [id number] 53748 Given 11/11/2010 Flu, Split Virus 3Yrs [id number] 15798 Given 05/09/2010 Adacel or Boostrix, TDaP [id number] 03913 Given 12/23/2009 Pneumococcal Immunization 31483 Given 01/03/2008 Flu, Split Virus 3Yrs 40323 Given 12/20/2006 Flu, Split Virus 3Yrs [id number] 70303 Given 11/04/2005 Td Immunization [id number] Vital Signs Date Vital Result Comment 03/02/2019 2:37pm BP Systolic 136 mmHg BP Diastolic 74 mmHg Heart Rate 105 /min O2 % BldC Oximetry 9093 % Body Temperature 98.3 F 02/13/2019 11:58am BP Systolic 132 mmHg BP Diastolic 70 mmHg Body Temperature 98.8 F Results Test Acquired Date Facility Test Result H/L Range Note Xray 03/02/2019 [facility] X-Ray, Chest, <pending> 1 2 Views Urine Micro 09/07/2018 In House [facility] WBC 1-3 Inhouse Ua RBC 2-5 Ua Casts - Ua Epi - Ua Other - Ua Glucose - Ua Bilirubin - Ua Ketones - Ua Specific [place] 1.010 Ua Blood n h tr Ua PH 6.0 Ua Protein tr Ua Urobilinogen - Ua Nitrite - Ua Leukocytes - Lipid Profile (Trig/Chol/HDL) 09/07/2018 [facility] Triglycerides 103 mg/dL 2 [phone] Cholesterol 139 mg/dL 3 HDL Cholesterol 55.7 mg/dL 4 LDL Cholesterol 63 mg/dL 5 Xray 09/07/2018 [facility] X-Ray, Knee, Right, 4 Or More OA/ DJD 6 Views 1 negative aside from hyperinflation 2 Desirable: <150 Borderline High: 150-199 High: 200-499 Very High: >500 3 Desirable: <200 Borderline High: 200-239 High: >239 4 Low: <40 Desirable: 40-60 High: >60 5 Desirable: <100 Near Optimal: 100-129 Borderline High: 130-159 High: 160-189 Very High: >189 6 Advanced degenerative changes Procedures Date Code Description Status 03/02/2019 50842 X-Ray Chest 2 V Completed 02/01/2019 69728920 Mammogram Completed 01/11/2019 12839 X-Ray Shoulder Two Or More Views Completed 09/07/2018 49707 X-Ray Knee, Complete Completed 07/13/2013 20281316 Colonoscopy Completed Medical Devices Description No Information Available Encounters Type Date Location Provider Dx Diagnosis Office Visit 03/02/2019 Main Office Elissa Sadler, R06.00 Dyspnea, unspecified 2:30p MD Office Visit 02/13/2019 Main Office Mahendra Arenas [...] visual disturbances Assessments Date Code Description Provider 03/02/2019 R06.00 Dyspnea, unspecified Elissa Sadler MD 02/13/2019 J44.1 Chronic obstructive pulmonary disease with [...] fluid intake. Recheck if sx not improving.E66.3 VngrqmaoruY79.31 Body mass index (BMI) 31.0-31.9, adult Functional Status Description No Information Available Mental Status Description No Information Available Referrals Refer to Reason for Referral Status Appt Date Jimmy Sanchez MD 68yo woman w/ Hx of adenomatous colon polyps. Sent 2019 Last C-scope was ~5.5yrs ago so she is due again. Testing - Consult if Abnormal - Follow up needed [facility] [address] [address] [phone]
--- NOTE | 2019-03-17 11:24 | ED ---
Shortness of Breath - HPI Summary HPI Summary: This pt is a 68 Y/O F presenting to [facility] accompanied by her with a CC of SOB that occurred this morning at 0900. She states that she has been to her PCP a few times since due to similar symptoms without relief. She states that she has had two course of prednisone without effect and states that her chest is still congested. She states that she was unable to catch her breath after walking to the bathroom and back to her bed this morning. Her states that her cough is wet but nonproductive and gets worse at night. She denies fever, chills, erythema of eyes, sore throat, CP, abdominal pain, N/V , dysuria, hematuria, myalgia, edema, increased pain or swelling throughout her LE, rash, weight loss, or dizziness. She states that she has no alleviating factors. Lying flat aggravates her symptoms. She has a PMHx of COPD which was diagnosed in March of 2018 and she states that she has a Hx of Fibromyalgia. She denies any FHx of cardiac disease. She currently is on O2 at night. She has a SHx of smoking and states that she quit last month. - History of Current Complaint Chief Complaint: EDShortnessOfBreath Time Seen by Provider: 03/17/19 11:00 Hx Obtained From: Patient Onset/Duration: Sudden Onset, Lasting Hours - 2, Resolved Timing: Constant Current Severity: None Dyspnea At: Exertion Aggravating Factors: Movement Alleviating Factors: Nothing Associated Signs & Symptoms: Negative - fever, chills, erythema of eyes, sore throat, CP, SOB, cough, abdominal pain, N/V, dysuria, hematuria, myalgia, edema , increased pain or swelling throughout her LE, rash, weight loss, or dizziness , Cough (Nonproductive) Related History: Similar Episode - States a Hx of SOB increases since 2018. Was given prednisone without any relief. - Allergy/Home Medications Allergies/Adverse Reactions: Allergies Allergy/AdvReac Type Severity Reaction Status Date / Time No Known Drug Allergies Allergy See Comment Verified 03/17/19 10:59 BANDAIDS Allergy Rash-see Uncoded 03/17/19 10:59 below Home Medications: Home Medications Acetaminophen [Acetaminophen Extra Strength] 500 mg PO DAILY PRN 03/17/19 [ History Confirmed 03/17/19] Losartan/Hydrochlorothiazide [Losartan Potassium/Hydroc 100-25 mg] 0.5 tab PO QAM 03/17/19 [History Confirmed 03/17/19] Polyethylene Glycol 3350* [Miralax*] 17 gm PO DAILY PRN 03/17/19 [History Confirmed 03/17/19] Rosuvastatin (NF) [Crestor (NF)] 10 mg PO DAILY 03/17/19 [History Confirmed ] Umeclidin/Vilant 62.5 MDI(NF) [ANORO 62.5/25 Ellipta DEVICE (NF)] 1 puff INH DAILY 03/17/19 [History Confirmed 03/17/19] PMH/Surg Hx/FS Hx/Imm Hx Previously Healthy: Yes Endocrine/Hematology History: Denies: Hx Diabetes Cardiovascular History: Reports: Hx Hypertension - ON MEDICATION Denies: Hx Congestive Heart Failure, Hx Pacemaker/ICD, Other Cardiovascular Problems/Disorders Respiratory History: Reports: Hx Chronic Obstructive Pulmonary Disease (COPD) - diagnosed March 2018 Denies: Hx Asthma, Other Respiratory Problems/Disorders GI History: Reports: Other GI Disorders - 2006 HX OF COLON POLYPS History: Reports: Hx Kidney Stones, Other Problems/Disorders - CURRENTLY HAS RIGHT RENAL CALCULUS Denies: Hx Renal Disease Musculoskeletal History: Reports: Hx Arthritis - RIGHT HAND, LEFT SHOULDER, Hx Bursitis - POSSIBLE LEFT SHOULDER, Hx Tendonitis - BILATERAL ARMS, Other Musculoskeletal History - FIBROMYALGIA Sensory History: Reports: Hx Contacts or Glasses - GLASSES Denies: Hx Hearing Aid Opthamlomology History: Reports: Hx Contacts or Glasses - GLASSES Psychiatric History: Denies: Hx Panic Disorder - Cancer History Cancer Type, 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 HEMROIDECTOMY, [facility]. GALL BLADDER REMOVED, [facility]. RIGHT FOOT BONE SPUR REMOVED, [facility],. CARPEL TUNNEL BILAT HANDS. [facility]. 2014 RIGHT THUMB TRIGGER RELEASE, RIGHT INDEX FINGER EXCISION OF MASS, ARTHROPLASTY, [facility]. 2014 CYSTOSCOPY WITH LEFT URETERAL STENT, LEFT ESWL, left arm skin - squamous cell Hx Anesthesia Reactions: No - Immunization History Immunizations Up to Date: Yes Infectious Disease History: No Infectious Disease History: Denies: Traveled Outside the [place] in Last 30 Days - Family History Known Family History: Negative: Hypertension, Diabetes - Social History Occupation: Retired Lives: With Family Alcohol Use: None Hx Substance Use: No Substance Use Type: Reports: None Hx Tobacco Use: Yes Smoking Status (MU): Former Smoker Type: Cigarettes Amount Used/How Often: 3-4 CIGARETTES PER DAY, OFF AND ON 50 YEARS. QUIT JANUARY 2019 Length of Time of Smoking/Using Tobacco: 50 YEARS Have You Smoked in the Last Year: Yes Review of Systems Negative: Fever, Chills Negative: Erythema Negative: Sore Throat Negative: Chest Pain Positive: Shortness Of Breath, Cough - wet, nonproductive Negative: Abdominal Pain, Vomiting, Nausea Negative: dysuria, hematuria Musculoskeletal: Negative - LE pain Negative: Myalgia, Edema Negative: Rash Neurological: Negative - dizziness All Other Systems Reviewed And Are Negative: Yes Physical Exam - Summary Physical Exam Summary: Constitutional: Well-developed, Well-nourished, Alert. (-) Distressed Skin: Warm, Dry HENT: Normocephalic; Atraumatic Eyes: Conjunctiva normal Neck: Musculoskeletal ROM normal neck. (-) JVD, (-) Stridor, (-) Tracheal deviation Cardio: Rhythm regular, rate normal, Heart sounds normal; Intact distal pulses; The pedal pulses are 2+ and symmetric. Radial pulses are 2+ and symmetric. (-) Murmur Pulmonary/Chest wall: Effort normal. (-) Respiratory distress, Inspiratory and expiratory wheezing, (-) Rales Abd: Soft, (-) tenderness, (-) Distension, (-) Guarding, (-) Rebound Musculoskeletal: (-) Edema, no calf tenderness or swelling Lymph: (-) Cervical adenopathy Neuro: Alert, Oriented x3 Psych: Mood and affect Normal Triage Information Reviewed: Yes Vital Signs On Initial Exam: Initial Vitals Temp Pulse Resp BP Pulse Ox 98.0 F 94 16 145/86 93 03/17/19 10:54 03/17/19 10:54 03/17/19 10:54 03/17/19 10:54 03/17/19 10:54 Vital Signs Reviewed: Yes Procedures - Sedation Patient Received Moderate/Deep Sedation with Procedure: No Diagnostics - Vital Signs Vital Signs Temp Pulse Resp BP Pulse Ox 03/17/19 10:54 98.0 F 94 16 145/86 93 - Laboratory Result Diagrams: 03/18/19 04:33 03/19/19 04:45 Lab Statement: Any lab studies that have been ordered have been reviewed, and results considered in the medical decision making process. - Radiology CXR Radiology Interpretation Completed By: Radiologist Summary of Radiographic Findings: HYPERINFLATION. NO ACTIVE CARDIOPULMONARY DISEASE. ED physician has reviewed this report. - CT Chest/Thorax CTA CT Interpretation Completed By: Radiologist Summary of CT Findings: 1. NO PULMONARY ARTERIAL FILLING DEFECT TO SUGGEST PULMONARY EMBOLISM. 2. THERE HAS BEEN INTERVAL DEVELOPMENT OF PERIBRONCHIAL VASCULAR THICKENING OF THE AIRWAYS TO THE RIGHT LOWER LOBE WITH PARTIAL THERE IS A LINEAR ATELECTASIS OF THE RIGHT LOWER LOBE. THIS MAY REFLECT AN INFECTIOUS OR NONINFECTIOUS INFLAMMATORY PROCESS, THOUGH NEOPLASM IS ALSO WITHIN THE DIFFERENTIAL. RECOMMEND CONSIDERATION OF CORRELATION WITH DIRECT VISUALIZATION IN THE NONACUTE SETTING. ED physicain has reviewed this report. - EKG 1119 Cardiac Rate: NL - 84 BPM EKG Rhythm: Sinus Rhythm Ectopy: None Summary of EKG Findings: NSR at 84 BPM, P waves, QRS complex, and T waves are within normal limits. Probable LVH with secondary repol abnrm. Interpreted by Dr. Virk at 03/17/2019 1123. 1440 Cardiac Rate: NL - 87 BPM EKG Rhythm: Sinus Rhythm Summary of EKG Findings: NSR at 87 BPM. There is motion artifact and the EKG will be tken again. No STEMI. Interpreted by Dr. Virk, 1442 03/17/2019. 1511 Cardiac Rate: NL - 86 BPM EKG Rhythm: Sinus Rhythm ST Segment: Normal Summary of EKG Findings: NSR at 86 BPM, P waves, QRS complex, and mild ST elevations. No STEMI. Interpreted by Dr. Virk 03/17/2019 1515. Course/Dx - Course Course Of Treatment: This pt is a 68 Y/O F presenting to [facility] accompanied by her with a CC of SOB that occurred this morning at 0900. She states that she has been to her PCP a few times since [place] due to similar symptoms without relief. She states that she has had two course of prednisone without effect and states that her chest is still congested. She states that she was unable to catch her breath after walking to the bathroom and back to her bed this morning. Her states that her cough is wet but nonproductive and gets worse at night. She denies fever, chills, erythema of eyes, sore throat, CP, SOB, cough, abdominal pain, N/V, dysuria, hematuria, myalgia, edema, increased pain or swelling throughout her LE, rash, weight loss , or dizziness. Recently diagnosed with COPD in March 2018. Her PE found that she has inspiratory and expiratory wheezing, no calf edema or tenderness. Her EKG at 1119 shows NSR at 84 BPM, P waves, QRS complex, and T waves are within normal limits. Probable LVH with secondary repol abnrm. She has abnormal labratory results in WBC of 12.3 and RBC 4.88. Her Troponin is a .31 after her first draw. Her CXR shows HYPERINFLATION. NO ACTIVE CARDIOPULMONARY DISEASE. Her Chest/Thorax CTA shows the followin. NO PULMONARY ARTERIAL FILLING DEFECT TO SUGGEST PULMONARY EMBOLISM. 2. THERE HAS BEEN INTERVAL DEVELOPMENT OF PERIBRONCHIAL VASCULAR THICKENING OF THE AIRWAYS TO THE RIGHT LOWER LOBE WITH PARTIAL THERE IS A LINEAR ATELECTASIS OF THE RIGHT LOWER LOBE. THIS MAY REFLECT AN INFECTIOUS OR NONINFECTIOUS INFLAMMATORY PROCESS, THOUGH NEOPLASM IS ALSO WITHIN THE DIFFERENTIAL. RECOMMEND CONSIDERATION OF CORRELATION WITH DIRECT VISUALIZATION IN THE NONACUTE SETTING. Dr. Romeo was consulted and he recommended an echocardiogram in the emergency department with a repeated troponin and admittance to [facility] for further care. She was diagnosed with elevated troponin, SOB, and wheezes. Her EKG at 1440 shows NSR at 87 BPM. There is motion artifact and the EKG will be taken again. No STEMI. Her EKG at 1511 shows NSR at 86 BPM, P waves, QRS complex, and mild ST elevations. No STEMI. - Diagnoses Provider Diagnoses: Elevated troponin, SOB (shortness of breath), Wheezes - Physician Notifications Discussed Care of Patient With: Celeste Leon Time Discussed With Above Provider: 14:40 Instructed by Provider To: Admit As Inpatient Admit/Transition Orders Completed By ED Provider: Yes Discharge ED - Sign-Out/Discharge Documenting (check all that apply): Patient Departure - Discharge Plan Condition: Stable Disposition: ADMITTED TO [facility] - Billing Disposition and Condition Condition: STABLE Disposition: Admitted to [facility] - Attestation Statements Document Initiated by Scribe: Yes Documenting Scribe: Buzz Potter Provider For Whom Scribe is Documenting (Include Credential): Oziel Virk MD Scribe Attestation: I, Buzz Potter, scribed for Oziel Virk MD on 03/21/19 at 1716. Scribe Documentation Reviewed: Yes Provider Attestation: The documentation as recorded by the Buzz byers accurately reflects the service I personally performed and the decisions made by me, Oziel Virk MD Status of Scribe Document: Viewed Consult Consult: Dr. Romeo, raw hide trimmer, was consulted at 1434 and he recommended an echocardiogram in the emergency department with a repeated troponin and admittance to [facility] for further care. She was diagnosed with elevated troponin, SOB, and wheezes. Pt was admitted for further care and work up by Dr. Leon, Hospitalist, at 1440.
[2019-03-17 11:52] LABS: ABS Eosinophils 0.2 10^3/ul (0-0.6); ABS Lymphocytes 1.4 10^3/ul (1.0-4.8); ABS Monocytes 0.7 10^3/ul (0-0.8); ABS Neutrophils 9.9 10^3/ul (1.5-7.7); Eosinophil % 1.8 %; Hematocrit 42 % (35-47); Hemoglobin 14.2 g/dL (12.0-16.0); Lymphocyte % 11.7 %; Mean Corpuscular HGB Conc 34 g/dL (31-36); Mean Corpuscular Hemoglobin 29 pg (27-31); Mean Corpuscular Volume 86 fL (80-97); Mean Platelet Volume 7.8 fL (7.4-10.4); Platelet Count 273 10^3/uL (150-450); Red Blood Count 4.88 10^6 /uL (3.70-4.87); Red Cell Distribution Width 15 % (10-15); White Blood Count 12.3 10^3/uL (3.5-10.8)
[2019-03-17 12:10] LABS: CO2 Carbon Dioxide 29 mmol/L (22-32); Chloride 103 mmol/L (101-111); Potassium 3.6 mmol/L (3.5-5.0); Sodium 140 mmol/L (135-145)
[2019-03-17 12:11] LABS: ALT 14 U/L (7-52); AST 15 U/L (13-39); Albumin 4.1 g/dL (3.2-5.2); Albumin/Globulin Ratio 1.6 (1-3); Alkaline Phosphatase 61 U/L (34-104); Anion Gap 8 mmol/L (2-11); BUN/Creatinine Ratio 13.3 (8-20); Blood Urea Nitrogen 13 mg/dL (6-24); Calcium 9.5 mg/dL (8.6-10.3); EGFR African American 68.3 (>60); EGFR Non-African American 56.4 (>60); Globulin 2.6 g/dL (2-4); Glucose 145 mg/dL (70-100); Total Protein 6.7 g/dL (6.4-8.9)
[2019-03-17 12:12] LABS: Troponin I 0.31 ng/mL (<0.03)
[2019-03-17] MEDS ORDERED: Aspirin 81 mg CHEW TAB* 81 MG TAB.CHEW PO ONE (12:47)
[2019-03-17] MEDS ORDERED: Iodixanol* (CONTRAST) 320 MG/ML 100 ML SDV IV ONE (12:55)
[2019-03-17] MEDS ORDERED: Methadone TAB* 10 MG PO ONE (13:00)
[2019-03-17] MEDS ORDERED: cefTRIAXone(*) 1 GM in NS 0.9% 50 ML* 50 ML IVPB ONE (14:16)
[2019-03-17] MEDS ORDERED: Azithromycin 500 mg/250 ml NS 500 MG/250 ML BAG IVPB ONE (14:16)
[2019-03-17] MEDS ORDERED: Perflutren Lipid Microsphere* 3 ML VIAL ONE (14:57)
[2019-03-17] MEDS ORDERED: Albuterol HFA INHALER* 8 gm MDI INH PRN (15:30)
[2019-03-17] MEDS ORDERED: Polyethylene Glycol 3350* 17 GM PACKET PO PRN (15:34)
--- NOTE | 2019-03-17 15:38 | ECHO ---
*[facility]* [place] [address] Fax #: [phone] Transthoracic Echocardiogram Patient: Marilee Craven I : 1950 Study Date: 03/17/2019 Age: 68 Gender: F HR: 90 bpm Height: 66 in /167.6 cm BSA: 1.91 m^2 Weight: 179.6 lb /81.6 kg BMI: 29.1 kg/m^2 *Senior Software Engineer: * Yamile Marquez [facility] *Referring Physician: * Oziel Virk *Reading Physician: * Hero Cazares MD Indications: Myocardial Infarction (new). History: Chronic obstructive pulmonary disease. Risk factors: Current tobacco use. Hypertension. Conclusions Summary: - Left ventricle: Systolic function is normal. The estimated ejection fraction is 50-55%. Hypokinesis of the basal-midanteroseptal myocardium. Hypokinesis of the basal-midinferoseptal myocardium. - Mitral valve: There is trace regurgitation. - Tricuspid valve: There is trace regurgitation. - No previous echocardiogram available. Study data: Transthoracic echocardiogram. Procedure: Transthoracic echocardiography was performed. Image quality was adequate. Intravenous Definity , 4 mlswas administered. Complete 2D, spectral Doppler, and color flow Doppler. Location: Emergency department. Patient status: Inpatient. Patient room number: 9. Rhythm: Normal sinus rhythm. Findings Left ventricle: The cavity size is normal. Wall thickness is mildly increased. Systolic function is normal. The estimated ejection fraction is 50-55%. Regional wall motion abnormalities: Hypokinesis of the basal-midanteroseptal myocardium. Hypokinesis of the basal-midinferoseptal myocardium. Doppler parameters are consistent with abnormal left ventricular relaxation (grade 1 diastolic dysfunction). Right ventricle: The cavity size is normal. Systolic function is normal. Left atrium: The atrium is normal in size. Right atrium: The atrium is normal in size. Mitral valve: The leaflets are mildly thickened. There is no evidence of stenosis. There is trace regurgitation. Aortic valve: The leaflets are mildly thickened. There is no evidence of stenosis. There is no significant regurgitation. Tricuspid valve: The leaflets are normal thickness. There is no evidence of stenosis. There is trace regurgitation. Pulmonic valve: Not well visualized. There is no significant regurgitation. Aorta: The aortic root appears normal. The aortic arch appears normal. Pericardium: There is no significant pericardial effusion. Pulmonary arteries: Not well visualized. Systolic pressure is within the normal range. Systemic veins: Inferior vena cava: The vessel is normal in size. There is (>= 50%) respiratory change in the IVC dimension. Measurements Left ventricle Value Ref Aortic valve Value Ref STU, LAX 4.1 cm 3.8 - 5.2 Todd diam, ED 1.9 cm ----- ESD, LAX 3.0 cm 2.2 - 3.5 Peak v, S 1.47 m/sec ----- FS, LAX 28 % 27 - 45 VTI, S 30.8 cm ----- PW, ED, LAX (H) 1.1 cm 0.6 - 0.9 Mean grad, S 5.0 mm Hg ----- E', lat todd, TDI (L) 8.2 cm/sec >=10.0 Peak grad, S 9.0 mm Hg --- -- E/e', lat todd, 10 TDI Mitral valve Value Ref E', med todd, TDI 7.7 cm/sec >=7.0 Peak E 0.84 m/sec --- -- E/e', med todd, 11 Peak A 1.15 m/sec ----- TDI Decel time 77 ms ----- E', avg, TDI 8.0 cm/sec Peak grad, D 2.8 mm Hg ----- E/e', avg, TDI 11 <=14 Peak E/A ratio 0.7 --- -- LVOT Value Ref Pulmonic valve Value Ref Peak anil, S 1.24 m/sec Peak v, S 0.88 m/sec ----- Peak grad, S 6 mm Hg Peak grad, S 3.0 mm Hg ----- Mean grad, S 3 mm Hg Tricuspid valve Value Ref Ventricular septum Value Ref TR peak v 2.43 m/sec <=2.8 IVS, ED (H) 1.1 cm 0.6 - 0.9 Peak RV-RA grad, S 24 mm Hg ----- Right ventricle Value Ref Aortic root Value Ref STU, LAX 2.7 cm Root diam 2.9 cm <4.1 STU minor ax, A4C 2.8 cm 1.9 - 3.5 Root max diam, ED 2.9 cm <4.1 mid Pressure, S 27 mm Hg Aortic arch Value Ref Arch diam 2.3 cm ----- Left atrium Value Ref AP dim, ES 3.30 cm 2.70 - Decending aorta Value Ref 3.80 Kirsten peak anil 0.7 m/sec ----- ML dim, A4C 3.5 cm SI dim, A4C 5.0 cm Pulmonary artery Value Ref Vol/bsa, ES, A/L 28 ml/m^2 16 - 34 Pressure, S 24.0 mm Hg ----- Right atrium Value Ref Inferior vena cava Value Ref SI dim, ES 4.5 cm 3.4 - 5.3 Diam 1.0 cm ----- ML dim, ES, A4C 4.4 cm 2.6 - 4.4 Estimated RAP 3 mm Hg Legend: (L) and (H) liliana values outside specified reference range. Prepared and electronically signed by Hero Cazares MD 03/17/2019 15:37
[2019-03-17 15:44] LABS: Troponin I 0.64 ng/mL (<0.03)
[2019-03-17 15:47] LABS: Urine Appearance Cloudy; Urine Bilirubin Negative (Negative); Urine Blood Negative (Negative); Urine Color Yellow; Urine Glucose Negative (Negative); Urine Ketones Negative (Negative); Urine Nitrite Negative (Negative); Urine Protein Negative (Negative); Urine Specific Gravity 1.018 (1.010-1.030); Urine Urobilinogen Negative (Negative)
[2019-03-17 16:24] LABS: Magnesium 1.8 mg/dL (1.9-2.7)
[2019-03-17] MEDS: Heparin DRIP 25,000 UNITS(*) 25,000 UNITS/500 ML BAG IV SCH (17:11)
[2019-03-17] MEDS: Heparin VIAL(*) 5000 UNITS/ML VIAL (FIVE THOUSAND) IV PRN (17:16)
[2019-03-17] MEDS ORDERED: Magnesium Sulfate 2 GM IV* 2 GM/50 ML BAG IVPB ONE (17:25)
--- NOTE | 2019-03-17 18:10 | CONS ---
CC: Dr. Arenas; Hospitalist Service; Dr. Cazares CARDIOLOGY CONSULTATION: DATE OF CONSULT: 03/17/19 HISTORY OF PRESENT ILLNESS: I was asked by Dr. Virk, ER physician, and hospitalist service to see this 68-year-old female patient who presented to the emergency room by ambulance this morning with sh ortness of breath, sudden onset. The patient does have significant comorbidities and risk factors inc luding history of obesity, long use of tobacco consumption for 50 years, although she quit a month ag o and history of hypertension, hyperlipidemia, and she is on medical treatment as an outpatient for b oth of them. A month ago or so, she had upper respiratory viral illness, although she was treated wi th antibiotic treatment, then a course of prednisone oral treatment, and for about a week or so, she felt much better until this morning when after she woke up about 9 o'clock in the morning she had siva den onset of shortness of breath. No chest pain. She never had chest pains from before actually. 9 11 was called. She received oxygen and inhalers. She was brought to the emergency room. Troponin i nitially about 11 o'clock this morning was 0.3. Cardiology consult was further requested. The patie nt did receive aspirin, oxygen, inhalers in the emergency room. She is feeling better actually. An e chocardiogram was done at bedside in the emergency room showed EF about 50% to 55%. It was a difficu lt study given the body habitus of the patient, Definity was used. There is wall motion abnormality, appears to be in the mid to the basal segment of the anterior septum. No significant valvular disea se, no significant pericardial effusion. A CT scan in the emergency room was done while the patient was in the emergency room, showed no pulmonary embolism. A second troponin just came in at 0.67. EK G, no definite ST elevation. There is J point elevation in V1, V2. There are 2 EKGs from the ER and there is a flattened T-wave in lead I and aVL. She gives no fever, no chills, no nausea, no vomitin g, no hematemesis, no skin rash, no abdominal pain, no syncope, no history of congestive heart failur e before, no history of coronary artery disease, no history of myocardial infarction, no swelling in the lower extremities is appreciated. PAST MEDICAL HISTORY: Includes history of hypertension, hyperlipidemia, COPD. PAST SURGICAL HISTORY: History of gallbladder surgery, and history of cholecystectomy, hemorrhoidect toño, and lumbar surgery in 1998. MEDICATIONS: As an outpatient include: 1. Losartan/hydrochlorothiazide 50/12.5 mg daily. 2. She is on methadone for chronic pain syndrome. 3. She is on Crestor, she is not sure about the dose, for hyperlipidemia. ALLERGIES: No known drug allergies. SOCIAL HISTORY: She did smoke for about 50 years. She quit a month ago. She is retired. She gives no significant alcohol, caffeinated drinks, or stimulants appreciated. REVIEW OF SYSTEMS: Review of all other systems essentially is negative. PHYSICAL EXAM: On exam, she is awake, alert, and oriented. She has no chest pain. Her vitals from t jorge: Blood pressure 186/106, but her blood pressure before that actually was 130/75; her pulse is 8 4; respiratory rate is 13; and temperature 98. Head and Neck Exam: Normocephalic, atraumatic head. Ears, Nose, and Throat: Essentially benign. Neck is supple. JVP is not elevated. No carotid bruits . No masses in the neck are appreciated. Chest: Clear to auscultation. No rales, no wheeze. No a dded sounds appreciated. Heart: Normal, regular. S1, S2. No added sounds. No gallops, no rubs. Abdomen: Benign, soft. Positive bowel sounds. Extremities: No edema, no cyanosis, no clubbing. Sk in exam is normal. Psych: Normal affect and mood. 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 DIAGNOSTIC STUDIES/LAB DATA: EKG showed sinus rhythm; J point elevation in V1, V2; flattened T-wave in lead I and aVL. White blood cell 12.3, hemoglobin 14.2, hematocrit 42, platelets 273. Her chemistry showed sodium 14 0, potassium 3.6, chloride 103, total CO2 29, BUN 13, creatinine 0.98. Troponin 0.31 at 11:36 this m orning and then 0.64 at 2:44 this afternoon. BNP 63. Her LFTs were normal. CT scan showed no evidence of pulmonary embolism. IMPRESSION: The patient is a 68-year-old female with: 1. Ruled in for mild non-ST elevation myocardial infarction by positive troponin. 2. Systemic arterial hypertension. 3. Hyperlipidemia. 4. Long use of tobacco consumption for about 50 years, although she quit a month ago. 5. Obesity. 6. Chronic obstructive pulmonary disease. 7. Abnormal EKG as described. 8. Focal wall motion abnormality of the anterior septum as described with EF 50% to 55%. 9. No pulmonary embolism by her CT scan. PLAN: The patient will be admitted to the hospitalist service at the present time. Cardiology to [facility] closely. I have discussed her further via phone today with Dr. Huber from the interventional ca rdiology services. We discussed her clinical condition and presentation and also if an urgent cardia c cath is needed at the present time. At the present time, we will continue to observe the patient v shannan closely and for maximizing medical treatment with aspirin; anticoagulation, heparin or Lovenox; b eta-adrien treatment; and definitely keep a close eye on clinical chest pain, significant EKG abnorm alities, or significantly elevated troponin. Any further recommendation will be pending her clinical outcome. Definitely, she does have comorbidities and risk factors. I have discussed her with the ospitalist service with a future plan and we will keep a very close followup on her. Thank you very much for asking us to participate in the care of this patient. TIME SPENT: More than half of at least 60 to 65 plus minutes was in education and counseling mode, e xplaining the above, discussing her further, and making further decision-making. [id number]/[facility] #: [id number]
[2019-03-17] MEDS ORDERED: Potassium Chlor TAB* 20 MEQ TAB.ER PO ONE (18:11)
[2019-03-17 19:11] LABS: Troponin I 1.11 ng/mL (<0.03)
[2019-03-17 19:37] LABS: ABS Lymphocytes 0.8 10^3/ul (1.0-4.8); ABS Monocytes 0.1 10^3/ul (0-0.8); ABS Neutrophils 8.1 10^3/ul (1.5-7.7); Eosinophil % 0.1 %; Hematocrit 42 % (35-47); Hemoglobin 14.5 g/dL (12.0-16.0); Lymphocyte % 9.2 %; Mean Corpuscular HGB Conc 34 g/dL (31-36); Mean Corpuscular Hemoglobin 30 pg (27-31); Mean Corpuscular Volume 86 fL (80-97); Mean Platelet Volume 8.2 fL (7.4-10.4); Platelet Count 302 10^3/uL (150-450); Red Blood Count 4.91 10^6 /uL (3.70-4.87); Red Cell Distribution Width 14 % (10-15); White Blood Count 9.1 10^3/uL (3.5-10.8)
[2019-03-17 19:48] LABS: Blood Urea Nitrogen 12 mg/dL (6-24); EGFR African American 63.1 (>60); EGFR Non-African American 52.1 (>60)
[2019-03-17] MEDS: Methadone TAB* 10 MG PO SCH (20:23)
[2019-03-17] MEDS: Metoprolol Tartrate TAB* 25 MG PO SCH (20:30)
[2019-03-17] MEDS ORDERED: Metoprolol Tartrate TAB* 25 MG PO SCH (21:00)
[2019-03-17] MEDS ORDERED: Heparin VIAL(*) 5000 UNITS/ML VIAL (FIVE THOUSAND) SUBCUT SCH (21:00)
[2019-03-17 23:01] LABS: Troponin I 1.59 ng/mL (<0.03)
--- NOTE | 2019-03-18 00:14 | HP ---
HISTORY AND PHYSICAL: DATE OF ADMISSION: 03/17/19 PRIMARY CARE PROVIDER: Dr. Arenas. OTHER PROVIDER IN CONSULTATION: Dr. Cazares. ATTENDING PHYSICIAN: Dr. Leon * (dictated by Jaylene Leach NP). CHIEF COMPLAINT: Shortness of breath. HISTORY OF PRESENT ILLNESS: Ms. Crvaen is a 68-year-old female with a past medical history significant for hypertension and arthritis, who presented to the emergency department today after a sudden onset of shortness of breath. The patient reports that she awoke this morning, ambulated to the bathroom and had a sudden onset of shortness of breath. She reports she took her O2 sat, which was in the 60s at that time. She reports she stuck her head out her bedroom window and applied her supplemental oxygen, which helped. She then presented to the emergency room. Further history of her present illness includes the fact that she has had an upper respiratory congestion since before . She has had one round of antibiotic and to rounds of steroids. She reports she completed her second round of steroids last week and since that time has felt good. Therefore, she has been in her normal state of health up until this morning. The patient denies any aggravating symptoms of her shortness of breath. She reports alleviating symptoms include fresh air, supplemental oxygen, and the DuoNeb in the ambulance. The patient denies needing more elevation for sleep (such as extra pillows) or the need to sleep in a recliner. The patient denies any chest pain, fevers, weakness. While in the emergency department, the patient had a chest x-ray which showed hyperinflation, but no active cardio-pulmonary disease. She had an EKG, which showed sinus rhythm. The patient also had routine labs, which revealed an elevated troponin of 0.31. Given the patient's report of respiratory illness she was also started on antibiotics in the form of azithromycin and ceftriaxone and given those steroids. Given these findings, the hospitalists were asked to consult for admission. PAST MEDICAL HISTORY: 1. Hypertension. 2. Arthritis. PAST SURGICAL HISTORY: 1. Removal of colon polyps. 2. Removal of squamous cell cancer, left arm. 3. History of lumbar surgery. 4. History of hemorrhoidectomy. 5. History of cholecystectomy. 6. History of right bone thumb spur removed. 7. History of bilateral carpal tunnel correction. 8. History of right thumb trigger release and right index finger excision of mass. 9. History of cystoscopy with ureteral stent. 10. Left extracorporeal shockwave therapy. HOME MEDICATIONS: 1. Methadone 10 mg a.m., 10 mg afternoon. 2. Albuterol 2 puffs inhalations q.4 hours p.r.n. 3. Rosuvastatin 10 mg p.o. daily. 4. Tylenol 500 mg p.o. daily p.r.n. 5. MiraLAX 17 g p.o. daily p.r.n. 6. Anoro Ellipta 1 puff inhalation daily. 7. Losartan/HCTZ 10/25 mg half a tab p.o. q.a.m. ALLERGIES: No known drug allergies. FAMILY HISTORY: Mother due to old age. Father due to colon cancer. SOCIAL HISTORY: The patient is a smoker. She smokes about 50 years with a pack a day. The patient attempted to quit about 1 month ago. The patient denies alcohol use. The patient denies drug use. The patient is retired. The patient lives independently in the community. The patient lives with her partner of 30 years, Ruddy White, who is her healthcare proxy. REVIEW OF SYSTEMS: The patient denies fever, anorexia, chest pain, edema, hemoptysis, nausea, vomiting, diarrhea, abdominal pain, gross hematuria, dysuria , focal weakness, visual complaints, dysphagia, arthralgias or myalgias, rashes , lesions, psychosis or anxiety. The patient is positive for a wet cough. The patient had an episode of shortness of breath as mentioned in the HPI. PHYSICAL EXAMINATION GENERAL: Ms. Craven is a 68-year-old female, who is sitting in bed. Appears to be in no acute distress. Appears her stated age. VITAL SIGNS: Temp 98.0, HR 94, RR 16, O2 saturation is 93% on room air, BP 145/ 86. HEENT: EOMs intact. PERRLA. Oral mucosa is moist without lesion. Posterior pharynx is clear. NECK: Full range of motion. No lymphadenopathy. RESPIRATORY: Symmetrical chest expansion. No accessory muscle use. There is scant wheeze heard in right base, otherwise lungs are clear. No rhonchi, wheezes or rubs. CV: Regular rate and rhythm. S1, S2 present. No murmurs, rubs or gallops. No JVD. ABDOMEN: Soft, nontender. Bowel sounds are normoactive. EXTREMITIES: Skin is warm and smooth bilaterally. No edema. MUSCULOSKELETAL: No pain or deformities. NEURO: Awake, alert, and oriented x4. Motor strength is 5/5 throughout. SKIN: Grossly intact without lesions. DIAGNOSTIC STUDIES/LAB DATA: WBC 12.3, hemoglobin 14.2, hematocrit 42, platelets 273. Sodium 140, potassium 3.6, chloride 103, carbon dioxide 29, BUN 13, creatinine 0.98, glucose 145. Magnesium 1.8. Troponin 0.31 and 0.64. ASSESSMENT AND PLAN: Ms. Craven is a 68-year-old female with a past medical history significant for hypertension and arthritis, who presents to the emergency department today with complaint of shortness of breath and was found to have an elevated troponin. The patient will be placed in OBV: 1. Elevated troponin: Given the patient's initial elevated troponin of 0.31 and repeat troponin of 0.64, she will be admitted for acute coronary syndrome. Dr. Cazares was consulted and an echo was ordered. The patient will have repeat troponins with EKGs accompanying. The patient was started on aspirin in the emergency room and we will continue this daily. We will continue the patient's Lipitor. We will place the patient on heparin drip per [place] protocol. The patient was also started on a low dose beta adrien in the form of metoprolol 12.5 mg b.i.d. The patient will be placed on telemetry. The patient can have a heart- healthy caffeine-free diet. Please see Dr. Cazares' s consultation. 2. Shortness of breath: The patient is currently free from shortness of breath. She does oxygenate well on room air. This could be multifactorial. It could be due to a flare of chronic obstructive pulmonary disease given the patient's history of smoking. We will continue antibiotics and steroids. It could be cardiac in nature. Therefore, we are awaiting echo. We will follow troponins. We will have the patient on tele. We will repeat EKGs. It should also be noted that the patient wears oxygen at night, which will be ordered. 3. Leukocytosis: The patient has mild leukocytosis of 12.3. This could be infectious in nature or secondary to the patient's recent steroids. Either way , we will cover the patient with antibiotics at this time. 4. Elevated creatinine: The patient has an elevated creatinine of 0.98. This is near her baseline. We will continue to monitor. We will avoid nephrotoxic medications. 5. Elevated glucose: The patient has an elevated glucose of 145. She does not carry a history of diabetes. This could be secondary to steroids. We will continue to monitor her glucose. I have ordered hemoglobin A1c. 6. Low magnesium: The patient has low magnesium of 1.8. I will replace this. 7. Low potassium: The patient has low potassium as 3.6. We will replace this and repeat it tomorrow. 8. Hypertension: We will continue the patient's blood pressure medications and monitor her blood pressure routinely. 9. FEN: The patient will be placed on heart-healthy diet. No caffeine. 10. Code status: The patient is full code. 11. DVT prophylaxis: Based on the DVT Risk Assessment, the patient is high risk. The patient is currently on heparin drip. TIME SPENT: Approximately 65 minutes was spent on this admission, greater than half the time was spent with the patient and partner obtaining my history, performing physical exam, and reviewing my plan of care. This case has been reviewed by my attending, Dr. Leon, who is in agreement with my plan of care. Reviewed by JAYLENE LEACH NP 03/22/19 @ 0719 [id number]/[facility] #: [id number] [place]
[2019-03-18 04:53] LABS: ABS Lymphocytes 1.4 10^3/ul (1.0-4.8); ABS Monocytes 1.1 10^3/ul (0-0.8); ABS Neutrophils 9.5 10^3/ul (1.5-7.7); Eosinophil % 0.1 %; Hematocrit 40 % (35-47); Hemoglobin 13.2 g/dL (12.0-16.0); Lymphocyte % 11.4 %; Mean Corpuscular HGB Conc 33 g/dL (31-36); Mean Corpuscular Hemoglobin 29 pg (27-31); Mean Corpuscular Volume 86 fL (80-97); Mean Platelet Volume 7.6 fL (7.4-10.4); Platelet Count 292 10^3/uL (150-450); Red Cell Distribution Width 15 % (10-15)
[2019-03-18 05:05] LABS: Albumin 3.8 g/dL (3.2-5.2); Albumin/Globulin Ratio 1.6 (1-3); BUN/Creatinine Ratio 18.1 (8-20); Calcium 9.2 mg/dL (8.6-10.3); EGFR African American 82.7 (>60); EGFR Non-African American 68.4 (>60); Globulin 2.4 g/dL (2-4); HDL Cholesterol 62.2 mg/dL; Total Bilirubin 0.4 mg/dL (0.2-1.0); Total Protein 6.2 g/dL (6.4-8.9)
[2019-03-18 05:37] LABS: TSH (Thyroid Stimulating Horm) 0.2 mcIU/mL (0.34-5.60)
[2019-03-18] MEDS: SPIRIVA Respimat* (tiotropium) 2.5 mcg/inh Inhaler INH SCH (08:20)
[2019-03-18] MEDS ORDERED: Aspirin 81 mg CHEW TAB* 81 MG TAB.CHEW PO SCH (09:00)
[2019-03-18] MEDS: Losartan TAB* 25 MG PO SCH (09:55)
[2019-03-18] MEDS: Methadone TAB* 10 MG PO SCH ×2 (09:55→20:01)
[2019-03-18] MEDS: Atorvastatin* 20 MG TAB PO SCH (09:55)
[2019-03-18] MEDS: Aspirin 81 mg CHEW TAB* 81 MG TAB.CHEW PO SCH (09:55)
[2019-03-18] MEDS: Metoprolol Tartrate TAB* 25 MG PO SCH ×2 (09:56→20:02)
[2019-03-18] MEDS: Hydrochlorothiazide TAB* 25 MG PO SCH (09:56)
--- NOTE | 2019-03-18 10:46 | PN ---
Subjective Date of Service: 03/18/19 - CC: SOB, NSTEMI Interval History: The patient was seen with her . She states breathing better than on arrival. Weeks of cough, SOB that did not respond to Z saul, prednisone. No chest pain ever. Medications Active Medications: Albuterol (Ventolin Hfa Inhaler*) 2 puff INH Q4H PRN PRN Reason: WHEEZING Aspirin (Aspirin 81 Mg Chew Tab*) 81 mg PO DAILY [facility] Last Admin: 03/18/19 09:55 Dose: 81 mg Atorvastatin Calcium (Lipitor*) 20 mg PO DAILY [facility]; Protocol Last Admin: 03/18/19 09:55 Dose: 20 mg Heparin Sodium (Porcine) (Heparin Vial(*)) 0 units IV .BOLUS PRN PRN Reason: HEPARIN DRIP PROTOCOL Last Admin: 03/17/19 17:16 Dose: 4,000 units Hydrochlorothiazide (Hydrodiuril Tab*) 12.5 mg PO QAM [facility] Last Admin: 03/18/19 09:56 Dose: 12.5 mg Azithromycin 250 mg/ Sodium (Chloride) 250 mls @ 250 mls/hr IVPB Q24H [facility] Stop: 03/22/19 15:59 Ceftriaxone Sodium 1 gm/ (Sodium Chloride) 50 mls @ 100 mls/hr IVPB Q24H [facility] Heparin Sodium/Dextrose (Heparin Drip 25,000 Units(*)) 25,000 units in 500 mls @ 0 mls/hr IV PER RATE [facility]; Protocol Last Admin: 03/17/19 17:11 Dose: 20 mls/hr Losartan Potassium (Cozaar Tab*) 50 mg PO QAM [facility] Last Admin: 03/18/19 09:55 Dose: 50 mg Methadone HCl (Dolophine Tab*) 10 mg PO DAILY [facility] Last Admin: 03/18/19 09:55 Dose: 10 mg Methadone HCl (Dolophine Tab*) 15 mg PO BEDTIME [facility] Last Admin: 03/17/19 20:23 Dose: 15 mg Metoprolol Tartrate (Lopressor Tab*) 12.5 mg PO BID [facility] Last Admin: 03/18/19 09:56 Dose: 12.5 mg Polyethylene Glycol/Electrolytes (Miralax*) 17 gm PO DAILY PRN PRN Reason: CONSTIPATION Tiotropium Leopold (Spiriva Respimat 2.5 Mcg) 2 puff INH DAILY [facility] Last Admin: 03/18/19 08:20 Dose: Not Given Objective Vital Signs: Temp Pulse Resp BP Pulse Ox 97.9 F 85 16 126/73 95 03/18/19 07:15 03/18/19 07:15 03/18/19 09:55 03/18/19 07:15 03/18/19 07:15 Oxygen Devices in Use Now: Nasal Cannula Appearance: mild to moderately overweight older middle aged female, lying at 40 degrees in bed, comfortable. Eyes: No Scleral Icterus, PERRLA Ears/Nose/Mouth/Throat: Clear Oropharnyx, Mucous Membranes Moist Neck: NL Appearance and Movements; NL JVP, Trachea Midline Respiratory: - - Diffuse inspiratory and expiratory wheezing in all lung ramos. Cardiovascular: RRR Abdominal: No Hepatosplenomegaly Extremities: No Edema - but thickened. Skin: No Rash or Ulcers Neurological: Alert and Oriented x 3 Lines/Tubes/Other Access: Clean, Dry and Intact Peripheral IV Laboratory Results: 03/18/19 04:33 03/18/19 04:33 APTT 55.1 seconds (26.0-38.0) H 03/18/19 04:33 Total Bilirubin 0.40 mg/dL (0.2-1.0) 03/18/19 04:33 AST 20 U/L (13-39) 03/18/19 04:33 ALT 13 U/L (7-52) 03/18/19 04:33 Alkaline Phosphatase 55 U/L (34-104) 03/18/19 04:33 B-Natriuretic Peptide 63 pg/mL (<=100) 03/17/19 11:36 Total Protein 6.2 g/dL (6.4-8.9) L 03/18/19 04:33 Albumin 3.8 g/dL (3.2-5.2) 03/18/19 04:33 Globulin 2.4 g/dL (2-4) 03/18/19 04:33 Albumin/Globulin Ratio 1.6 (1-3) 03/18/19 04:33 Triglycerides 82 mg/dL 03/18/19 04:33 Cholesterol 143 mg/dL 03/18/19 04:33 LDL Cholesterol 64 mg/dL 03/18/19 04:33 HDL Cholesterol 62.2 mg/dL 03/18/19 04:33 TSH 0.20 mcIU/mL (0.34-5.60) L 03/18/19 04:33 03/17/19 03/17/19 03/17/19 11:36 14:44 18:37 Troponin I 0.31 H* 0.64 H* 1.11 H* 03/17/19 03/18/19 22:22 01:55 Troponin I 1.59 H* 1.40 H* LDL chol = 64 Diagnostic Imaging: *[facility]* [place] [address] Fax #: [phone] Transthoracic Echocardiogram Patient: Marilee Craven I : 1950 Study Date: 03/17/2019 Age: 68 Gender: F HR: 90 bpm Height: 66 in /167.6 cm BSA: 1.91 m^2 Weight: 179.6 lb /81.6 kg BMI: 29.1 kg/m^2 *Book Packer: Yamile Hagan [facility] *Referring Physician: * Oziel Virk *Reading Physician: * Hero Cazares MD Indications: Myocardial Infarction (new). History: Chronic obstructive pulmonary disease. Risk factors: Current tobacco use. Hypertension. Conclusions Summary: - Left ventricle: Systolic function is normal. The estimated ejection fraction is 50-55%. Hypokinesis of the basal-midanteroseptal myocardium. Hypokinesis of the basal-midinferoseptal myocardium. - Mitral valve: There is trace regurgitation. - Tricuspid valve: There is trace regurgitation. - No previous echocardiogram available. Study data: Transthoracic echocardiogram. Procedure: Transthoracic echocardiography was performed. Image quality was adequate. Intravenous Definity , 4 mlswas administered. Complete 2D, spectral Doppler, and color flow Doppler. Location: Emergency department. Patient status: Inpatient. Patient room number: 9. Rhythm: Normal sinus rhythm. This report is only to be considered final once signed by the Provider(s) as displayed in the "<Electronically Signed by >" field (s). Absence of a signature indicates the report is in a draft status and still needs to be finalized. In the event this document was created by someone other than the signing Provider, the individual initiating the document will be listed in the "Entered by:" or "Dictated by:" ramos. Patient Name: MARILEE CRAVEN I Medical Record#: [id number] Ordering Physician: Oziel Virk MD Acct.#: [id number] : 1950 Age: 68 Sex: F Location: EMERGENCY DEPARTMENT Exam Date: 03/17/19 1247 ADM Status: REG ER Order Information: CTA CHEST Accession Number: [id number] CPT: 42506 HISTORY: sob, elev trop COMPARISONS: June 22, 2018 TECHNIQUE: Multiple contiguous axial CT scans of the chest were obtained after the administration of nonionic intravenous contrast, timed to the pulmonary arterial phase of contrast enhancement.. Coronal and sagittal multiplanar reformations are also submitted for review. FINDINGS: NECK AND THYROID: The lower neck and thyroid are unremarkable. CHEST WALL: There is no lower cervical, axillary, or supraclavicular lymphadenopathy by size criteria. HEART AND PERICARDIUM: The heart is unremarkable. AORTA AND PULMONARY VASCULATURE: There is no pulmonary arterial filling defect to suggest pulmonary embolism. There is no linear filling defect within the aorta to suggest aortic dissection. MEDIASTINUM: There is no mediastinal lymphadenopathy by size criteria. DEIDRA: There is no hilar lymphadenopathy by size criteria. AIRWAY AND ESOPHAGUS: There has been interval development of peribronchial vascular thickening along the right lower lobe, with partial effacement of the lumen of the airways to the right lower lobe. LUNG PARENCHYMA: There is linear atelectasis of the right lower lobe. PLEURA: No pleural abnormalities are noted. UPPER ABDOMEN: The upper abdomen is unremarkable. BONES AND SOFT TISSUES: No bone or soft tissue abnormalities are noted. OTHER: None. IMPRESSION: 1. NO PULMONARY ARTERIAL FILLING DEFECT TO SUGGEST PULMONARY EMBOLISM. 2. THERE HAS BEEN INTERVAL DEVELOPMENT OF PERIBRONCHIAL VASCULAR THICKENING OF THE AIRWAYS TO THE RIGHT LOWER LOBE WITH PARTIAL THERE IS A LINEAR ATELECTASIS OF THE RIGHT LOWER LOBE. THIS MAY REFLECT AN INFECTIOUS OR NONINFECTIOUS INFLAMMATORY PROCESS , THOUGH NEOPLASM IS ALSO WITHIN THE DIFFERENTIAL. RECOMMEND CONSIDERATION OF CORRELATION WITH DIRECT VISUALIZATION IN THE NONACUTE SETTING. <Electronically signed by Liu Coffey MD in OV> 03/17/19 1402 Dictated By: Liu Coffey MD Dictated Date/Time: 03/17/19 7493 This report is only to be considered final once signed by the Provider(s) as displayed in the "<Electronically Signed by >" field (s). Absence of a signature indicates the report is in a draft status and still needs to be finalized. In the event this document was created by someone other than the signing Provider, the individual initiating the document will be listed in the "Entered by:" or "Dictated by:" ramos. 1 of 2 EKG Data: ECG x 4 reviewed 03/17/2019, SR, ST, no significant ST changes. Assessment/Plan 68 yo presented to SOB after weeks of U+L respiratory symptoms, evidence of pneumonia/pulmonic process in setting of COPD O2 used chronically HS, LOW TSH and mild elevation of Trops/no CP. CAD risks of recent smoking, HTN, Chol, family hx, inactivity due to chronic LBP. SOB: Actively wheezing and I think her COPD, active pulmonary dz accounts for SOB. Troponins: Could be demand ischemia or large vessel disease or related to inflammatory process (PE ruled out) I recommend stress test when wheezing resolved (can't walk, lexiscan will worsen bronchospasm).
--- NOTE | 2019-03-18 10:48 | PN ---
Subjective Date of Service: 03/18/19 - Interval History: Ms. Craven reports that she is feeling better today. She has no shortness of breath at rest but does notice some mild increased work of breathing with ambulation to the bathroom. She denies chest pain. She is tolerating oral intake well. Objective Active Medications: Albuterol (Ventolin Hfa Inhaler*) 2 puff INH Q4H PRN Aspirin (Aspirin 81 Mg Chew Tab*) 81 mg PO DAILY [facility] Atorvastatin Calcium (Lipitor*) 20 mg PO DAILY [facility]; Protocol Heparin Sodium (Porcine) (Heparin Vial(*)) 0 units IV .BOLUS PRN Hydrochlorothiazide (Hydrodiuril Tab*) 12.5 mg PO QAM [facility] Azithromycin 250 mg/ Sodium (Chloride) 250 mls @ 250 mls/hr IVPB Q24H [facility] Ceftriaxone Sodium 1 gm/ (Sodium Chloride) 50 mls @ 100 mls/hr IVPB Q24H [facility] Heparin Sodium/Dextrose (Heparin Drip 25,000 Units(*)) 25,000 units in 500 mls @ 0 mls/hr IV PER RATE [facility]; Protocol Losartan Potassium (Cozaar Tab*) 50 mg PO QAM [facility] Methadone HCl (Dolophine Tab*) 10 mg PO DAILY [facility] Methadone HCl (Dolophine Tab*) 15 mg PO BEDTIME [facility] Metoprolol Tartrate (Lopressor Tab*) 12.5 mg PO BID [facility] Polyethylene Glycol/Electrolytes (Miralax*) 17 gm PO DAILY PRN Tiotropium [place] (Spiriva Respimat 2.5 Mcg) 2 puff INH DAILY [facility] Vital Signs: Temp Pulse Resp BP Pulse Ox 97.9 F 85 16 126/73 95 03/18/19 07:15 03/18/19 07:15 03/18/19 09:55 03/18/19 07:15 03/18/19 07:15 Oxygen Devices in Use Now: None Appearance: Female sitting up in chair in NAD Eyes: No Scleral Icterus Ears/Nose/Mouth/Throat: Mucous Membranes Moist Neck: Trachea Midline Respiratory: Symmetrical Chest Expansion and Respiratory Effort, - - few scattered wheezes throughout Cardiovascular: NL Sounds; No Murmurs; No JVD, No Edema Abdominal: NL Sounds; No Tenderness; No Distention Extremities: No Edema Skin: No Rash or Ulcers Neurological: Alert and Oriented x 3, NL Muscle Strength and Tone Nutrition: Taking PO's Result Diagrams: 03/18/19 04:33 03/18/19 04:33 Microbiology and Other Data: . Assess/Plan/Problems-Billing Assessment: Ms. Craven is a 68 yo F with a PMH of who was admitted on 03/17/19 with COPD exacerbation and NSTEMI. - Patient Problems (1) NSTEMI (non-ST elevated myocardial infarction) Comment: - Trop peaked at 1.59, J point elevation in V1 and V2 - Echo found hypokinesis of the basal mid-anteroseptal and basal mid- inferolateral segments, EF intact - Appreciate cardiology consultation, plan for maximal medical management. May have inpatient stress test once COPD exacerbation resolved but anticipate likely outpatient work up. - Continue metoprolol, hep gtt, aspirin, atorvastatin (2) COPD with exacerbation Comment: - Continue prednisone, azithromycin and ceftriaxone - Peribronchial airway thickening noted on the CTA chest, recommendation for outpatient follow up and bronchial sampling (3) Hypertension Comment: - BP well-controlled - Continue Hctz, losartan (4) Chronic pain Comment: - Continue methadone (5) DVT prophylaxis Comment: - Heparin gtt (6) Full code status Comment:
[2019-03-18] MEDS: Heparin VIAL(*) 5000 UNITS/ML VIAL (FIVE THOUSAND) IV PRN (14:12)
[2019-03-18] MEDS: cefTRIAXone(*) 1 GM in NS 0.9% 50 ML* 50 ML IVPB SCH (14:18)
[2019-03-18 14:29] LABS: T4, Total 9.26 mcg/dL (6.09-12.23)
[2019-03-18 14:33] LABS: Free T3 2.7 pg/mL (2.5-3.9)
[2019-03-18] MEDS: Azithromycin IV(*) 250 MG in NS 0.9% 250 ML* 250 ML IVPB SCH (16:14)
[2019-03-18] MEDS: Heparin DRIP 25,000 UNITS(*) 25,000 UNITS/500 ML BAG IV SCH (21:13)
[2019-03-18] MEDS ORDERED: Melatonin 3 MG TAB PO PRN (22:26)
[2019-03-19 05:14] LABS: EGFR African American 70.8 (>60); EGFR Non-African American 58.5 (>60)
[2019-03-19] MEDS: Hydrochlorothiazide TAB* 25 MG PO SCH (08:05)
[2019-03-19] MEDS: Metoprolol Tartrate TAB* 25 MG PO SCH ×2 (08:05→21:26)
[2019-03-19] MEDS: Losartan TAB* 25 MG PO SCH (08:06)
[2019-03-19] MEDS: Atorvastatin* 20 MG TAB PO SCH (08:06)
[2019-03-19] MEDS: Methadone TAB* 10 MG PO SCH ×2 (08:06→21:25)
[2019-03-19] MEDS: Aspirin 81 mg CHEW TAB* 81 MG TAB.CHEW PO SCH (08:07)
[2019-03-19] MEDS: SPIRIVA Respimat* (tiotropium) 2.5 mcg/inh Inhaler INH SCH (08:35)
--- NOTE | 2019-03-19 09:10 | PN ---
Subjective Date of Service: 03/19/19 Interval History: Ms. Craven states that she continues to improve. She has less shortness of breath with mobility. She denies chest pain. She is tolerating oral intake well. Objective Active Medications: Albuterol (Ventolin Hfa Inhaler*) 2 puff INH Q4H PRN Aspirin (Aspirin 81 Mg Chew Tab*) 81 mg PO DAILY [facility] Atorvastatin Calcium (Lipitor*) 20 mg PO DAILY [facility]; Protocol Heparin Sodium (Porcine) (Heparin Vial(*)) 0 units IV .BOLUS PRN Hydrochlorothiazide (Hydrodiuril Tab*) 12.5 mg PO QAM [facility] Azithromycin 250 mg/ Sodium (Chloride) 250 mls @ 250 mls/hr IVPB Q24H [facility] Ceftriaxone Sodium 1 gm/ (Sodium Chloride) 50 mls @ 100 mls/hr IVPB Q24H [facility] Heparin Sodium/Dextrose (Heparin Drip 25,000 Units(*)) 25,000 units in 500 mls @ 0 mls/hr IV PER RATE [facility]; Protocol Losartan Potassium (Cozaar Tab*) 50 mg PO QAM [facility] Melatonin (Melatonin) 3 mg PO BEDTIME PRN Methadone HCl (Dolophine Tab*) 10 mg PO DAILY [facility] Methadone HCl (Dolophine Tab*) 15 mg PO BEDTIME [facility] Metoprolol Tartrate (Lopressor Tab*) 12.5 mg PO BID [facility] Polyethylene Glycol/Electrolytes (Miralax*) 17 gm PO DAILY PRN Prednisone (Deltasone 20 Mg Tab) 40 mg PO DAILY [facility] Tiotropium [place] (Spiriva Respimat 2.5 Mcg) 2 puff INH DAILY [facility] Vital Signs: Temp Pulse Resp BP Pulse Ox 98.3 F 66 16 123/58 96 03/19/19 02:40 03/19/19 02:40 03/19/19 08:06 03/19/19 02:40 03/19/19 02:40 Oxygen Devices in Use Now: None Appearance: Female sitting on edge of bed in NAD Eyes: No Scleral Icterus Ears/Nose/Mouth/Throat: Mucous Membranes Moist Respiratory: Symmetrical Chest Expansion and Respiratory Effort, Clear to Auscultation Cardiovascular: NL Sounds; No Murmurs; No JVD, No Edema Abdominal: NL Sounds; No Tenderness; No Distention Extremities: No Edema Skin: No Rash or Ulcers Neurological: Alert and Oriented x 3, NL Muscle Strength and Tone Nutrition: Taking PO's Result Diagrams: 03/18/19 04:33 03/19/19 04:45 Microbiology and Other Data: . Assess/Plan/Problems-Billing Assessment: Ms. Craven is a 68 yo F with a PMH of who was admitted on 03/17/19 with COPD exacerbation and NSTEMI. - Patient Problems (1) NSTEMI (non-ST elevated myocardial infarction) Comment: - Trop peaked at 1.59, J point elevation in V1 and V2 - Echo found hypokinesis of the basal mid-anteroseptal and basal mid- inferolateral segments, EF intact - Appreciate cardiology consultation, plan for maximal medical management. Given that wheezing has resolved, plan for nuc med chemical stress test in AM - Continue metoprolol, hep gtt, aspirin, atorvastatin (2) COPD with exacerbation Comment: - Resolving, off oxygen - Continue prednisone, azithromycin and ceftriaxone - Peribronchial airway thickening noted on the CTA chest, recommendation for outpatient follow up and bronchial sampling (3) Hypertension Comment: - BP well-controlled - Continue Hctz, losartan (4) Chronic pain Comment: - Continue methadone (5) DVT prophylaxis Comment: - Heparin gtt (6) Full code status Comment: Status and Disposition: Inpatient, anticipate discharge to home when medically stable.
--- NOTE | 2019-03-19 13:11 | PN ---
Subjective Date of Service: 03/19/19 - CC: SOB Interval History: The patient was seen with her . Much improved, now walking to bath room, not coughing. Medications Active Medications: Albuterol (Ventolin Hfa Inhaler*) 2 puff INH Q4H PRN PRN Reason: WHEEZING Aspirin (Aspirin 81 Mg Chew Tab*) 81 mg PO DAILY [facility] Last Admin: 03/19/19 08:07 Dose: 81 mg Atorvastatin Calcium (Lipitor*) 20 mg PO DAILY [facility]; Protocol Last Admin: 03/19/19 08:06 Dose: 20 mg Heparin Sodium (Porcine) (Heparin Vial(*)) 0 units IV .BOLUS PRN PRN Reason: HEPARIN DRIP PROTOCOL Last Admin: 03/18/19 14:12 Dose: 2,000 units Hydrochlorothiazide (Hydrodiuril Tab*) 12.5 mg PO QAM [facility] Last Admin: 03/19/19 08:05 Dose: 12.5 mg Azithromycin 250 mg/ Sodium (Chloride) 250 mls @ 250 mls/hr IVPB Q24H [facility] Stop: 03/22/19 15:59 Last Admin: 03/18/19 16:14 Dose: 250 mls/hr Ceftriaxone Sodium 1 gm/ (Sodium Chloride) 50 mls @ 100 mls/hr IVPB Q24H [facility] Last Admin: 03/18/19 14:18 Dose: 100 mls/hr Heparin Sodium/Dextrose (Heparin Drip 25,000 Units(*)) 25,000 units in 500 mls @ 0 mls/hr IV PER RATE [facility]; Protocol Last Admin: 03/18/19 21:13 Dose: 20 mls/hr Losartan Potassium (Cozaar Tab*) [facility] [place] [facility] Admin: 03/19/19 08:06 Dose: 50 mg Melatonin (Melatonin) 3 mg PO BEDTIME PRN PRN Reason: SLEEP Last Admin: 03/18/19 22:35 Dose: 3 mg Methadone HCl (Dolophine Tab*) 10 mg PO DAILY [facility] Last Admin: 03/19/19 08:06 Dose: 10 mg Methadone HCl (Dolophine Tab*) 15 mg PO BEDTIME [facility] Last Admin: 03/18/19 20:01 Dose: 15 mg Metoprolol Tartrate (Lopressor Tab*) 12.5 mg PO BID [facility] Last Admin: 03/19/19 08:05 Dose: 12.5 mg Polyethylene Glycol/Electrolytes (Miralax*) 17 gm PO DAILY PRN PRN Reason: CONSTIPATION Prednisone (Deltasone 20 Mg Tab) 40 mg PO DAILY [facility] Last Admin: 03/19/19 08:06 Dose: 40 mg Tiotropium [place] (Spiriva Respimat 2.5 Mcg) 2 puff INH DAILY [facility] Last Admin: 03/19/19 08:35 Dose: 2 puff Objective Vital Signs: Temp Pulse Resp BP Pulse Ox 97.6 F 65 12 121/63 92 03/19/19 08:30 03/19/19 08:30 03/19/19 08:30 03/19/19 08:30 03/19/19 08:30 Vital Signs - 12 hr Temp Pulse Resp BP Pulse Ox 03/19/19 08:30 97.6 F 65 12 121/63 92 03/19/19 08:06 16 03/19/19 02:40 98.3 F 66 20 123/58 96 Oxygen Devices in Use Now: Nasal Cannula Appearance: mild to moderately overweight older middle aged female, lying at 40 degrees in bed, comfortable. Eyes: No Scleral Icterus, PERRLA Ears/Nose/Mouth/Throat: Clear Oropharnyx, Mucous Membranes Moist Neck: NL Appearance and Movements; NL JVP, Trachea Midline Respiratory: Symmetrical Chest Expansion and Respiratory Effort, Clear to Auscultation, - Cardiovascular: RRR Abdominal: No Hepatosplenomegaly Extremities: No Edema - but thickened. Skin: No Rash or Ulcers Neurological: Alert and Oriented x 3 Lines/Tubes/Other Access: Clean, Dry and Intact Peripheral IV Laboratory Results: 03/18/19 04:33 03/19/19 04:45 APTT 70.2 seconds (26.0-38.0) H 03/19/19 06:20 Total Bilirubin 0.40 mg/dL (0.2-1.0) 03/18/19 04:33 AST 20 U/L (13-39) 03/18/19 04:33 ALT 13 U/L (7-52) 03/18/19 04:33 Alkaline Phosphatase 55 U/L (34-104) 03/18/19 04:33 B-Natriuretic Peptide 63 pg/mL (<=100) 03/17/19 11:36 Total Protein 6.2 g/dL (6.4-8.9) L 03/18/19 04:33 Albumin 3.8 g/dL (3.2-5.2) 03/18/19 04:33 Globulin 2.4 g/dL (2-4) 03/18/19 04:33 Albumin/Globulin Ratio 1.6 (1-3) 03/18/19 04:33 Triglycerides 82 mg/dL 03/18/19 04:33 Cholesterol 143 mg/dL 03/18/19 04:33 LDL Cholesterol 64 mg/dL 03/18/19 04:33 HDL Cholesterol 62.2 mg/dL 03/18/19 04:33 TSH 0.20 mcIU/mL (0.34-5.60) L 03/18/19 04:33 03/17/19 03/17/19 03/17/19 11:36 14:44 18:37 Troponin I 0.31 H* 0.64 H* 1.11 H* 03/17/19 03/18/19 22:22 01:55 Troponin I 1.59 H* 1.40 H* Diagnostic Imaging: *[facility]* [place] [address] Fax #: [phone] Transthoracic Echocardiogram Patient: Marilee Craven I : 1950 Study Date: 03/17/2019 Age: 68 Gender: F HR: 90 bpm Height: 66 in /167.6 cm BSA: 1.91 m^2 Weight: 179.6 lb /81.6 kg BMI: 29.1 kg/m^2 *Remote Broadcast Technician: Yamile Hagan [facility] *Referring Physician: * Oziel Virk *Reading Physician: * Hero Cazares MD Indications: Myocardial Infarction (new). History: Chronic obstructive pulmonary disease. Risk factors: Current tobacco use. Hypertension. Conclusions Summary: - Left ventricle: Systolic function is normal. The estimated ejection fraction is 50-55%. Hypokinesis of the basal-midanteroseptal myocardium. Hypokinesis of the basal-midinferoseptal myocardium. - Mitral valve: There is trace regurgitation. - Tricuspid valve: There is trace regurgitation. - No previous echocardiogram available. Study data: Transthoracic echocardiogram. Procedure: Transthoracic echocardiography was performed. Image quality was adequate. Intravenous Definity , 4 mlswas administered. Complete 2D, spectral Doppler, and color flow Doppler. Location: Emergency department. Patient status: Inpatient. Patient room number: 9. Rhythm: Normal sinus rhythm. This report is only to be considered final once signed by the Provider(s) as displayed in the "<Electronically Signed by >" field (s). Absence of a signature indicates the report is in a draft status and still needs to be finalized. In the event this document was created by someone other than the signing Provider, the individual initiating the document will be listed in the "Entered by:" or "Dictated by:" ramos. Patient Name: MARILEE CRAVEN I Medical Record#: [id number] Ordering Physician: Oziel Virk MD Acct.#: [id number] : 1950 Age: 68 Sex: F Location: EMERGENCY DEPARTMENT Exam Date: 03/17/19 1247 ADM Status: REG ER Order Information: CTA CHEST Accession Number: [id number] CPT: 12026 HISTORY: sob, elev trop COMPARISONS: June 22, 2018 TECHNIQUE: Multiple contiguous axial CT scans of the chest were obtained after the administration of nonionic intravenous contrast, timed to the pulmonary arterial phase of contrast enhancement.. Coronal and sagittal multiplanar reformations are also submitted for review. FINDINGS: NECK AND THYROID: The lower neck and thyroid are unremarkable. CHEST WALL: There is no lower cervical, axillary, or supraclavicular lymphadenopathy by size criteria. HEART AND PERICARDIUM: The heart is unremarkable. AORTA AND PULMONARY VASCULATURE: There is no pulmonary arterial filling defect to suggest pulmonary embolism. There is no linear filling defect within the aorta to suggest aortic dissection. MEDIASTINUM: There is no mediastinal lymphadenopathy by size criteria. DEIDRA: There is no hilar lymphadenopathy by size criteria. AIRWAY AND ESOPHAGUS: There has been interval development of peribronchial vascular thickening along the right lower lobe, with partial effacement of the lumen of the airways to the right lower lobe. LUNG PARENCHYMA: There is linear atelectasis of the right lower lobe. PLEURA: No pleural abnormalities are noted. UPPER ABDOMEN: The upper abdomen is unremarkable. BONES AND SOFT TISSUES: No bone or soft tissue abnormalities are noted. OTHER: None. IMPRESSION: 1. NO PULMONARY ARTERIAL FILLING DEFECT TO SUGGEST PULMONARY EMBOLISM. 2. THERE HAS BEEN INTERVAL DEVELOPMENT OF PERIBRONCHIAL VASCULAR THICKENING OF THE AIRWAYS TO THE RIGHT LOWER LOBE WITH PARTIAL THERE IS A LINEAR ATELECTASIS OF THE RIGHT LOWER LOBE. THIS MAY REFLECT AN INFECTIOUS OR NONINFECTIOUS INFLAMMATORY PROCESS , THOUGH NEOPLASM IS ALSO WITHIN THE DIFFERENTIAL. RECOMMEND CONSIDERATION OF CORRELATION WITH DIRECT VISUALIZATION IN THE NONACUTE SETTING. <Electronically signed by Liu Coffey MD in OV> 03/17/19 1402 Dictated By: Liu Coffey MD Dictated Date/Time: 03/17/19 1770 This report is only to be considered final once signed by the Provider(s) as displayed in the "<Electronically Signed by >" field (s). Absence of a signature indicates the report is in a draft status and still needs to be finalized. In the event this document was created by someone other than the signing Provider, the individual initiating the document will be listed in the "Entered by:" or "Dictated by:" ramos. 1 of 2 EKG Data: ECG x 4 reviewed 03/17/2019, SR, ST, no significant ST changes. Monitor 03/18/2019-03/19/2019: NSR Assessment/Plan 68 yo presented to SOB after weeks of U+L respiratory symptoms, evidence of pneumonia/pulmonic process in setting of COPD O2 used chronically HS, LOW TSH and mild elevation of Trops/no CP. CAD risks of recent smoking, HTN, Chol, family hx, inactivity due to chronic LBP. SOB: Appears related to acute respiratory illness on top of COPD and improved with treatment. Troponins: Could be demand ischemia or large vessel disease or related to inflammatory process (PE ruled out). Echo shows preserved EF but has a wall motion abnormality. I recommend stress testing in AM, chemical due to back pain. Ordered. TSH low @ 0.2, FT4 and TSH wnl.
[2019-03-19] MEDS: cefTRIAXone(*) 1 GM in NS 0.9% 50 ML* 50 ML IVPB SCH (14:31)
[2019-03-19] MEDS: Azithromycin IV(*) 250 MG in NS 0.9% 250 ML* 250 ML IVPB SCH (17:53)
[2019-03-19] MEDS: Heparin DRIP 25,000 UNITS(*) 25,000 UNITS/500 ML BAG IV SCH (18:45)
[2019-03-20] MEDS ORDERED: GuaiFENesin DM 100 mg/10 mg in 5 ML UDC PO PRN (04:19)
[2019-03-20] MEDS: SPIRIVA Respimat* (tiotropium) 2.5 mcg/inh Inhaler INH SCH (07:15)
--- NOTE | 2019-03-20 09:57 | PN ---
Subjective Date of Service: 03/20/19 Interval History: patient reports that she is feeling well this AM , reports that she slept well. Denies chest pain. report mild shortness of breath. Denies abd pain n/v/d. Denies fever or chills. Lightheadedness or dizziness. Family History: Unchanged from Admission Social History: Unchanged from Admission Past Medical History: Unchanged from Admission Objective Active Medications: Albuterol (Ventolin Hfa Inhaler*) 2 puff INH Q4H PRN PRN Reason: WHEEZING Aspirin (Aspirin 81 Mg Chew Tab*) 81 mg PO DAILY [facility] Last Admin: 03/19/19 08:07 Dose: 81 mg Atorvastatin Calcium (Lipitor*) 20 mg PO DAILY [facility]; Protocol Last Admin: 03/19/19 08:06 Dose: 20 mg Guaifenesin/Dextromethorphan (Robitussin Dm 100 Mg/10 Mg In 5 Ml) 10 ml PO Q6H PRN PRN Reason: COUGH Heparin Sodium (Porcine) (Heparin Vial(*)) 0 units IV .BOLUS PRN PRN Reason: HEPARIN DRIP PROTOCOL Last Admin: 03/18/19 14:12 Dose: 2,000 units Hydrochlorothiazide (Hydrodiuril Tab*) [facility] [place] Last Admin: 03/19/19 08:05 Dose: 12.5 mg Azithromycin 250 mg/ Sodium (Chloride) 250 mls @ 250 mls/hr IVPB Q24H [facility] Stop: 03/22/19 15:59 Last Admin: 03/19/19 17:53 Dose: 250 mls/hr Ceftriaxone Sodium 1 gm/ (Sodium Chloride) 50 mls @ 100 mls/hr IVPB Q24H [facility] Last Admin: 03/19/19 14:31 Dose: 100 mls/hr Heparin Sodium/Dextrose (Heparin Drip 25,000 Units(*)) 25,000 units in 500 mls @ 0 mls/hr IV PER RATE [facility]; Protocol Last Admin: 03/19/19 18:45 Dose: 24 mls/hr Losartan Potassium (Cozaar Tab*) 50 mg PO QAM [facility] Last Admin: 03/19/19 08:06 Dose: 50 mg Melatonin (Melatonin) 3 mg PO BEDTIME PRN PRN Reason: SLEEP Last Admin: 03/18/19 22:35 Dose: 3 mg Methadone HCl (Dolophine Tab*) 10 mg PO DAILY [facility] Last Admin: 03/19/19 08:06 Dose: 10 mg Methadone HCl (Dolophine Tab*) 15 mg PO BEDTIME [facility] Last Admin: 03/19/19 21:25 Dose: 15 mg Metoprolol Tartrate (Lopressor Tab*) 12.5 mg PO BID [facility] Last Admin: 03/19/19 21:26 Dose: 12.5 mg Polyethylene Glycol/Electrolytes (Miralax*) 17 gm PO DAILY PRN PRN Reason: CONSTIPATION Prednisone (Deltasone 20 Mg Tab) 40 mg PO DAILY [facility] Last Admin: 03/19/19 08:06 Dose: 40 mg Tiotropium [place] (Spiriva Respimat 2.5 Mcg) 2 puff INH DAILY [facility] Last Admin: 03/20/19 07:15 Dose: 2 puff Vital Signs - 8 hr 03/20/19 03/20/19 03:24 08:15 Temperature 98 F 98.3 F Pulse Rate 48 57 Respiratory 17 16 Rate Blood Pressure 118/61 128/56 (mmHg) O2 Sat by Pulse 97 96 Oximetry Oxygen Devices in Use Now: Nasal Cannula Appearance: alert, oriented x3 , no acute distress Eyes: No Scleral Icterus Ears/Nose/Mouth/Throat: Clear Oropharnyx, Mucous Membranes Moist Neck: NL Appearance and Movements; NL JVP, Trachea Midline Respiratory: Symmetrical Chest Expansion and Respiratory Effort, Clear to Auscultation Cardiovascular: NL Sounds; No Murmurs; No JVD, No Edema Abdominal: NL Sounds; No Tenderness; No Distention Extremities: No Edema, No Clubbing, Cyanosis Skin: No Rash or Ulcers Neurological: Alert and Oriented x 3 Nutrition: Taking PO's Result Diagrams: 03/18/19 04:33 03/19/19 04:45 Microbiology and Other Data: . Assess/Plan/Problems-Billing Assessment: Ms. Craven is a 68 yo F with a PMH of who was admitted on 03/17/19 with COPD exacerbation and NSTEMI. - Patient Problems (1) NSTEMI (non-ST elevated myocardial infarction) Current Visit: Yes Status: Acute Code(s): I21.4 - NON-ST ELEVATION (NSTEMI) MYOCARDIAL INFARCTION SNOMED Code(s): 81269435 Comment: - Trop peaked at 1.59, J point elevation in V1 and V2 - Echo found hypokinesis of the basal mid-anteroseptal and basal mid- inferolateral segments, EF intact - Appreciate cardiology consultation, plan for maximal medical management. Given that wheezing has resolved, - nuclear chemical stress test today-Reproduced Shortness of breath with stress test and Nuclear portion reports - hypokinesis at the septum- low risk - cardiology recommened Cardiac cath- will have cardiac cath in the AM. - Continue metoprolol, aspirin, atorvastatin and heparin gtt- Will stop heparin per cardiology (2) COPD with exacerbation Current Visit: No Status: Acute Priority: High Code(s): J44.1 - CHRONIC OBSTRUCTIVE PULMONARY DISEASE W (ACUTE) EXACERBATION SNOMED Code(s): 721989719 Comment: - Resolving, off oxygen - Continue prednisone, azithromycin and ceftriaxone - Peribronchial airway thickening noted on the CTA chest, recommendation for outpatient follow up and bronchial sampling (3) Hypertension Current Visit: Yes Status: Acute Code(s): I10 - ESSENTIAL (PRIMARY) HYPERTENSION SNOMED Code(s): 43518604 Comment: - BP well-controlled - Continue Hctz, losartan (4) Chronic pain Current Visit: Yes Status: Acute Code(s): G89.29 - OTHER CHRONIC PAIN SNOMED Code(s): 71400017 Comment: - Continue methadone (5) DVT prophylaxis Current Visit: No Status: Acute Code(s): BXP0834 - SNOMED Code(s): 387132957 Comment: - Heparin gtt (6) Full code status Current Visit: Yes Status: Acute Code(s): Z78.9 - OTHER SPECIFIED HEALTH STATUS SNOMED Code(s): 220165669 Comment: Status and Disposition: Inpatient, anticipate discharge to home when medically stable.
[2019-03-20] MEDS ORDERED: Regadenoson* 0.4 MG/5 ML SYRINGE ONE (10:36)
[2019-03-20] MEDS: Atorvastatin* 20 MG TAB PO SCH (12:22)
[2019-03-20] MEDS: Methadone TAB* 10 MG PO SCH ×2 (12:23→20:02)
[2019-03-20] MEDS: Losartan TAB* 25 MG PO SCH (12:23)
[2019-03-20] MEDS: Aspirin 81 mg CHEW TAB* 81 MG TAB.CHEW PO SCH (12:23)
[2019-03-20] MEDS: Hydrochlorothiazide TAB* 25 MG PO SCH (12:24)
[2019-03-20] MEDS: Metoprolol Tartrate TAB* 25 MG PO SCH ×2 (12:24→20:00)
--- NOTE | 2019-03-20 12:58 | PN ---
Subjective Date of Service: 03/20/19 Interval History: f/u acute OH mechanism uncertain (? type 1, type 2, atypical takotsubo) No chest pain or dyspnea currently symptoms of severe dyspnea reproduced with lexiscan Medications Active Medications: Albuterol (Ventolin Hfa Inhaler*) 2 puff INH Q4H PRN PRN Reason: WHEEZING Aspirin (Aspirin 81 Mg Chew Tab*) 81 mg PO DAILY [facility] Last Admin: 03/20/19 12:23 Dose: 81 mg Atorvastatin Calcium (Lipitor*) 20 mg PO DAILY [facility]; Protocol Last Admin: 03/20/19 12:22 Dose: 20 mg Guaifenesin/Dextromethorphan (Robitussin Dm 100 Mg/10 Mg In 5 Ml) 10 ml PO Q6H PRN PRN Reason: COUGH Heparin Sodium (Porcine) (Heparin Vial(*)) 0 units IV .BOLUS PRN PRN Reason: HEPARIN DRIP PROTOCOL Last Admin: 03/18/19 14:12 Dose: 2,000 units Hydrochlorothiazide (Hydrodiuril Tab*) 12.5 mg PO QAM [facility] Last Admin: 03/20/19 12:24 Dose: 12.5 mg Azithromycin 250 mg/ Sodium (Chloride) 250 mls @ 250 mls/hr IVPB Q24H [facility] Stop: 03/22/19 15:59 Last Admin: 03/19/19 17:53 Dose: 250 mls/hr Ceftriaxone Sodium 1 gm/ (Sodium Chloride) 50 mls @ 100 mls/hr IVPB Q24H [facility] Last Admin: 03/19/19 14:31 Dose: 100 mls/hr Heparin Sodium/Dextrose (Heparin Drip 25,000 Units(*)) 25,000 units in 500 mls @ 0 mls/hr IV PER RATE [facility]; Protocol Last Admin: 03/19/19 18:45 Dose: 24 mls/hr Losartan Potassium (Cozaar Tab*) 50 mg PO QAM [facility] Last Admin: 03/20/19 12:23 Dose: 50 mg Melatonin (Melatonin) 3 mg PO BEDTIME PRN PRN Reason: SLEEP Last Admin: 03/18/19 22:35 Dose: 3 mg Methadone HCl (Dolophine Tab*) 10 mg PO DAILY [facility] Last Admin: 03/20/19 12:23 Dose: 10 mg Methadone HCl (Dolophine Tab*) 15 mg PO BEDTIME [facility] Last Admin: 03/19/19 21:25 Dose: 15 mg Metoprolol Tartrate (Lopressor Tab*) 12.5 mg PO BID [facility] Last Admin: 03/20/19 12:24 Dose: 12.5 mg Polyethylene Glycol/Electrolytes (Miralax*) 17 gm PO DAILY PRN PRN Reason: CONSTIPATION Prednisone (Deltasone 20 Mg Tab) 40 mg PO DAILY [facility] Last Admin: 03/20/19 12:22 Dose: 40 mg Tiotropium [place] (Spiriva Respimat 2.5 Mcg) 2 puff INH DAILY [facility] Last Admin: 03/20/19 07:15 Dose: 2 puff Objective Vital Signs: Temp Pulse Resp BP Pulse Ox 97.7 F 68 16 144/57 94 03/20/19 12:39 03/20/19 12:39 03/20/19 12:39 03/20/19 12:39 03/20/19 12:39 Oxygen Devices in Use Now: Nasal Cannula Appearance: nad Eyes: No Scleral Icterus Neck: NL Appearance and Movements; NL JVP Respiratory: Symmetrical Chest Expansion and Respiratory Effort, Clear to Auscultation, - Cardiovascular: RRR Abdominal: No Hepatosplenomegaly Extremities: No Edema - but thickened. Skin: No Rash or Ulcers Neurological: Alert and Oriented x 3 Lines/Tubes/Other Access: Clean, Dry and Intact Peripheral IV Laboratory Results: 03/18/19 04:33 03/19/19 04:45 APTT 70.0 seconds (26.0-38.0) H 03/20/19 09:14 Total Bilirubin 0.40 mg/dL (0.2-1.0) 03/18/19 04:33 AST 20 U/L (13-39) 03/18/19 04:33 ALT 13 U/L (7-52) 03/18/19 04:33 Alkaline Phosphatase 55 U/L (34-104) 03/18/19 04:33 B-Natriuretic Peptide 63 pg/mL (<=100) 03/17/19 11:36 Total Protein 6.2 g/dL (6.4-8.9) L 03/18/19 04:33 Albumin 3.8 g/dL (3.2-5.2) 03/18/19 04:33 Globulin 2.4 g/dL (2-4) 03/18/19 04:33 Albumin/Globulin Ratio 1.6 (1-3) 03/18/19 04:33 Triglycerides 82 mg/dL 03/18/19 04:33 Cholesterol 143 mg/dL 03/18/19 04:33 LDL Cholesterol 64 mg/dL 03/18/19 04:33 HDL Cholesterol 62.2 mg/dL 03/18/19 04:33 TSH 0.20 mcIU/mL (0.34-5.60) L 03/18/19 04:33 03/17/19 03/17/19 03/17/19 11:36 14:44 18:37 Troponin I 0.31 H* 0.64 H* 1.11 H* 03/17/19 03/18/19 22:22 01:55 Troponin I 1.59 H* 1.40 H* Diagnostic Imaging: Transthoracic Echocardiogram Patient: Marilee Craven I : 1950 Study Date: 03/17/2019 Conclusion Summary: - Left ventricle: Systolic function is normal. The estimated ejection fraction is 50-55%. Hypokinesis of the basal-midanteroseptal myocardium. Hypokinesis of the basal-midinferoseptal myocardium. - Mitral valve: There is trace regurgitation. - Tricuspid valve: There is trace regurgitation. - No previous echocardiogram available. CTA chest Exam Date: 03/17/19 IMPRESSION: 1. NO PULMONARY ARTERIAL FILLING DEFECT TO SUGGEST PULMONARY EMBOLISM. 2. THERE HAS BEEN INTERVAL DEVELOPMENT OF PERIBRONCHIAL VASCULAR THICKENING OF THE AIRWAYS TO THE RIGHT LOWER LOBE WITH PARTIAL THERE IS A LINEAR ATELECTASIS OF THE RIGHT LOWER LOBE. THIS MAY REFLECT AN INFECTIOUS OR NONINFECTIOUS INFLAMMATORY PROCESS , THOUGH NEOPLASM IS ALSO WITHIN THE DIFFERENTIAL. RECOMMEND CONSIDERATION OF CORRELATION WITH DIRECT VISUALIZATION IN THE NONACUTE SETTING. stress MPi today 03/20/2019 presenting symptom of severe dyspnea reproduced MPI reviewed and was normal no definite ischemic changes Assessment/Plan 68 year old woman with tobacco use, HTN, dyslipidemia, COPD, admitted with acute OH, mechanism uncertain (? type 1, 2 related to infection, atypical takostubo) in setting of respiratory tract infection - Although this could very well be an atypical stress cardiomyopathy, I think the pre-test probability of severely obstructive epicardial atherosclerotic CAD is too high to relay on a vasodilator stress MPI for prognostic purposes. We discussed the risks, benefits and alternatives to invasive cardiac catheterization with intent for revascularization. She does wish to pursue this tomorrow with Dr. Shaffer (discussed in person) and order was placed. Can d /c heparin today (ordered).
[2019-03-20] MEDS ORDERED: Diazepam TAB(*) 5 MG PO PRN (13:18)
[2019-03-20] MEDS ORDERED: diPHENhydraMINE PO* 25 MG PO PRN (13:18)
[2019-03-20] MEDS: cefTRIAXone(*) 1 GM in NS 0.9% 50 ML* 50 ML IVPB SCH (15:02)
[2019-03-20] MEDS ORDERED: Saline NASAL DROPS 0.65%* 1 DROP BTL BOTH NARES PRN (15:27)
[2019-03-20] MEDS: Azithromycin IV(*) 250 MG in NS 0.9% 250 ML* 250 ML IVPB SCH (15:56)
[2019-03-21] MEDS ORDERED: NS 0.9% 1000 ML** 1,000 ML IV SCH (06:00)
[2019-03-21] MEDS: SPIRIVA Respimat* (tiotropium) 2.5 mcg/inh Inhaler INH SCH (07:51)
[2019-03-21] MEDS: Aspirin 81 mg CHEW TAB* 81 MG TAB.CHEW PO SCH (07:54)
[2019-03-21] MEDS ORDERED: diPHENhydraMINE PO* 25 MG ONE (08:21)
[2019-03-21] MEDS ORDERED: Diazepam TAB(*) 5 MG ONE (08:21)
[2019-03-21] MEDS ORDERED: Heparin 2 UNITS/ML IVPREMIX* 2,000 ML IV ONE (08:22)
[2019-03-21] MEDS ORDERED: Lidocaine 1% INJ* 10 MG/ML 30 ML SDV ONE (08:22)
[2019-03-21] MEDS ORDERED: fentaNYL* 50 MCG/ML 2 ML VIAL (100 MCG VIAL) ONE (08:23)
[2019-03-21] MEDS ORDERED: VERAPAMIL 2.5 MG/ML 2 ML VIAL ** 5 mg/2 ml ONE (08:23)
[2019-03-21] MEDS ORDERED: Midazolam* 1 MG/ML 5 ML VIAL (5 MG) ONE (08:23)
[2019-03-21] MEDS ORDERED: Heparin(*) 1000 UNIT/ML 10 ML VIAL CATH LAB IV ONE (08:23)
[2019-03-21] MEDS ORDERED: nitroGLYCERIN DRIP* 0 MCG/0 ML BTL ONE (08:24)
[2019-03-21] MEDS ORDERED: Iohexol 350 (CONTRAST) 200 ML MDV IV ONE ×2 (08:24→09:18)
[2019-03-21] MEDS ORDERED: Heparin 2 UNITS/ML IVPREMIX* 1,000 ML IV ONE (09:25)
[2019-03-21] MEDS: Hydrochlorothiazide TAB* 25 MG PO SCH (12:41)
[2019-03-21] MEDS: Atorvastatin* 20 MG TAB PO SCH (12:42)
[2019-03-21] MEDS: Losartan TAB* 25 MG PO SCH (12:42)
[2019-03-21] MEDS: Methadone TAB* 10 MG PO SCH ×2 (12:42→21:03)
[2019-03-21] MEDS: Metoprolol Tartrate TAB* 25 MG PO SCH (12:43)
[2019-03-21] MEDS ORDERED: Hydrochlorothiazide TAB* 25 MG PO ONE (13:34)
[2019-03-21] MEDS: cefTRIAXone(*) 1 GM in NS 0.9% 50 ML* 50 ML IVPB SCH (14:10)
[2019-03-21] MEDS: Azithromycin IV(*) 250 MG in NS 0.9% 250 ML* 250 ML IVPB SCH (15:28)
--- NOTE | 2019-03-21 17:41 | CATH ---
CC: Dr. Mahendra Arenas; Dr. Harley Waddell, [facility] * CARDIAC CATHETERIZATION REPORT: DATE OF PROCEDURE: 03/21/19 - ROOM #[id number] PRIMARY CARE DOCTOR: Dr. Mahendra Arenas. INDICATION FOR PROCEDURE: Asked by Dr. Harley Waddell (in-hospital strip presser managing the patient) to perform diagnostic cardiac catheterization and possible intervention in light of presentation with acute coronary syndrome with abnormal cardiac enzymes and wall motion abnormality on echocardiography, rule out the presence of critical coronary artery disease. PROCEDURE: Coronary arteriography, left heart catheterization, left ventriculography. CONSENT: The patient was interviewed and examined on the floor of the hospital where the risks and benefits were explained. She understood them and wished to proceed. APPROACH UTILIZED: The right radial artery was assessed by ultrasound and found to be too small (1.5 to 1.6 mm) and as such the right femoral approach was utilized. PRE-CARDIAC CATHETERIZATION LABORATORY RESULTS: Hemoglobin and hematocrit of 13.2 and 40 with a platelet count of 292,000. BUN and creatinine were 21 and 0.95. Sodium 138, potassium 4.0, chloride 105, bicarb 25. Troponin, the most recent troponin was 1.4. EQUIPMENT UTILIZED: 1. Right femoral artery sheath - a 5-Afghan 11 cm long [place] sheath. 2. Diagnostic coronary catheters - a 5-Afghan FL4 and a 5-Afghan FR4 diagnostic coronary catheter. 3. Diagnostic guidewire: A standard 150 cm J-tipped guidewire. 4. The left heart catheterization catheter was a 5-Afghan 145-degree angled pigtail catheter. MEDICATIONS GIVEN DURING THE PROCEDURE: 1. The patient received local 1% lidocaine for anesthesia of the skin. 2. The patient also received 1 mg of Versed for sedation in the slab tripper (the patient had already received Valium and Benadryl pre-cardiac catheterization). DESCRIPTION OF PROCEDURE: The patient was brought to the cardiovascular laboratory where a formal time-out was performed. She was prepped and draped in sterile fashion and the right groin area was anesthetized with 1% lidocaine. The right femoral artery was cannulated with an anterior wall only stick and the sheath was placed. Coronary arteriography was performed followed by left heart catheterization. Left ventriculography was performed with a total of 24 cc of Omnipaque dye at a rate of 12 cc per second. The catheter was then pulled back across the aortic valve to recheck gradient. At the end of the case , an injection was made into the right femoral artery sheath to assess eligibility to utilize a closure device. It appeared that the sheath may be in the profunda branch of the femoral artery, and as such, manual closure technique was utilized with good hemostasis. The total contrast used was a total of 65 cc of Omnipaque dye. The radiation exposure included 5.7 minutes of fluoro time. The air kerma radiation was 1068 mGy. The DAP radiation was 6311 microgray per meter squared. RESULTS: LEFT VENTRICULOGRAPHY: Performed in the ACE projection revealed symmetrical contraction of the left ventricle with no obvious focal wall motion abnormality. The ejection fraction was estimated at approximately 60% to 65%. There was no significant mitral regurgitation noted. HEMODYNAMIC DATA: Left heart catheterization revealed central aortic pressure recorded at 160/ 63 with a mean of 104, left ventricular pressure was recorded at 159 over left ventricular end-diastolic pressure from 20 to 23 mmHg. CORONARY ARTERIOGRAPHY: A. Left coronary artery: 1. Left main - widely patent. There was no significant obstruction seen. There was mild calcium noted within the wall of the left main, but no significant stenosis was seen. 2. Left anterior descending artery. The left anterior descending artery supplied a small first diagonal branch followed by 2 more diagonal branches. The proximal portion to mid portion had mild calcification. The proximal to mid portion had mild narrowing of approximately 25% with calcium. Of note, this was right at the area of the first septal associate theatre professor and just after it. Of note, the first septal associate theatre professor was widely patent and there was no significant lesion seen in it. The continuation of the LAD reached to the apical region and onto the distal inferior wall. There was no significant obstruction seen throughout the rest of the vessel as well. 3. Circumflex artery - a nondominant vessel supplying a thin first obtuse marginal branch with a moderate trifurcating mid obtuse marginal branch and ending in a low- lying thin obtuse marginal branch. There was no significant disease seen throughout the course of the circumflex vessel. Of note, the proximal portion did appear to have a retroflexed area, but no compromise was noted. B. Right coronary artery: A dominant vessel supplying multiple acute marginal branches as well as the posterior descending artery and 3 posterior left ventricular branches, of which the first two were small in caliber at best. The PDA itself appeared to be a bifurcating vessel. There was mild calcification seen within the wall of the right coronary artery in its mid portion with mild luminal reduction of 20% to 25%. OVERALL ASSESSMENT: Normal overall left ventricular contractility with evidence of decreased left ventricular diastolic compliance evidenced by increased left ventricular end-diastolic pressure. Of note, essential hypertension was noted in the slab tripper albeit under some degree of stress with the catheterization procedure being done. No significant obstructive coronary artery disease seen with calcium noted within the wall of the left main, proximal to mid LAD with a mild lesion at the proximal to mid LAD as described above at and after the first septal associate theatre professor. Mild disease noted in the mid right coronary artery with calcium as well. This information was shared with Dr. Cazares, who was the hospital strip presser on the day of cardiac catheterization. He will manage with medical management with regard to her acute coronary syndrome presentation and she will be seen in followup next week with Dr. Harley Waddell, who she has seen in the past in the office. [id number]/CPS #: [id number] MTDTina
--- NOTE | 2019-03-21 18:01 | PN ---
Subjective Date of Service: 03/21/19 Interval History: Patient bradycardic to high 40s-50s today even after she has ambulated. Patient denies dizziness/lightheadedness, chest pain, difficulty breathing, visual changes. RN Corey tells me the patient is c/o back pain which she has chronically and usually occurs when she is laying flat. She c/o this when she is lying supine as part of orders after cardiac cath. Family History: Unchanged from Admission Social History: Unchanged from Admission Past Medical History: Unchanged from Admission Objective Active Medications: Albuterol (Ventolin Hfa Inhaler*) 2 puff INH Q4H PRN PRN Reason: WHEEZING Aspirin (Aspirin 81 Mg Chew Tab*) 81 mg PO DAILY [facility] Last Admin: 03/21/19 07:54 Dose: 81 mg Atorvastatin Calcium (Lipitor*) 20 mg PO DAILY [facility]; Protocol Last Admin: 03/21/19 12:42 Dose: 20 mg Guaifenesin/Dextromethorphan (Robitussin Dm 100 Mg/10 Mg In 5 Ml) 10 ml PO Q6H PRN PRN Reason: COUGH Hydrochlorothiazide (Hydrodiuril Tab*) 25 mg PO QAM [facility] Azithromycin 250 mg/ Sodium (Chloride) 250 mls @ 250 mls/hr IVPB Q24H [facility] Stop: 03/22/19 15:59 Last Admin: 03/21/19 15:28 Dose: 250 mls/hr Ceftriaxone Sodium 1 gm/ (Sodium Chloride) 50 mls @ 100 mls/hr IVPB Q24H [facility] Last Admin: 03/21/19 14:10 Dose: 100 mls/hr Losartan Potassium (Cozaar Tab*) 100 mg PO QAM [facility] Melatonin (Melatonin) 3 mg PO BEDTIME PRN PRN Reason: SLEEP Last Admin: 03/18/19 22:35 Dose: 3 mg Methadone HCl (Dolophine Tab*) 10 mg PO DAILY [facility] Last Admin: 03/21/19 12:42 Dose: 10 mg Methadone HCl (Dolophine Tab*) 15 mg PO BEDTIME [facility] Last Admin: 03/20/19 20:02 Dose: 15 mg Metoprolol Succinate (Toprol Xl Tab*) 12.5 mg PO DAILY [facility] Polyethylene Glycol/Electrolytes (Miralax*) 17 gm PO DAILY PRN PRN Reason: CONSTIPATION Prednisone (Deltasone 20 Mg Tab) 40 mg PO DAILY [facility] Last Admin: 03/21/19 12:43 Dose: 40 mg Sodium Chloride (Sodium Chloride 0.65% Nasal Drops*) 1 drop BOTH NARES Q4H PRN PRN Reason: CONGESTION Tiotropium [place] (Spiriva Respimat 2.5 Mcg) 2 puff INH DAILY [facility] Last Admin: 03/21/19 07:51 Dose: 2 puff Vital Signs - 8 hr 03/21/19 03/21/19 03/21/19 10:01 10:04 10:09 Temperature Pulse Rate 55 48 56 Respiratory 15 8 16 Rate Blood Pressure 161/73 152/85 (mmHg) O2 Sat by Pulse 91 97 98 Oximetry 03/21/19 03/21/19 03/21/19 10:14 10:19 10:24 Temperature Pulse Rate 50 62 50 Respiratory 15 17 13 Rate Blood Pressure 167/78 160/85 154/77 (mmHg) O2 Sat by Pulse 98 98 99 Oximetry 03/21/19 03/21/19 03/21/19 10:29 10:34 10:39 Temperature Pulse Rate 53 49 55 Respiratory 14 10 13 Rate Blood Pressure 167/84 158/74 144/79 (mmHg) O2 Sat by Pulse 99 99 96 Oximetry 03/21/19 03/21/19 03/21/19 10:45 11:07 12:00 Temperature 97.5 F Pulse Rate 62 Respiratory 14 Rate Blood Pressure 169/82 141/68 (mmHg) O2 Sat by Pulse 96 91 Oximetry 03/21/19 03/21/19 03/21/19 12:07 12:42 13:07 Temperature Pulse Rate Respiratory 16 Rate Blood Pressure 125/58 128/58 (mmHg) O2 Sat by Pulse Oximetry 03/21/19 03/21/19 03/21/19 14:01 14:02 14:07 Temperature Pulse Rate Respiratory 18 18 Rate Blood Pressure 132/55 (mmHg) O2 Sat by Pulse Oximetry 03/21/19 03/21/19 03/21/19 15:07 15:33 16:07 Temperature Pulse Rate Respiratory 18 Rate Blood Pressure 136/110 134/66 (mmHg) O2 Sat by Pulse Oximetry Oxygen Devices in Use Now: None Appearance: WD WN white female, laying in bed, appearing comfortable and in NAD Eyes: No Scleral Icterus, - - PERRL Ears/Nose/Mouth/Throat: Mucous Membranes Moist Neck: Trachea Midline Respiratory: Symmetrical Chest Expansion and Respiratory Effort, Clear to Auscultation Cardiovascular: NL Sounds; No Murmurs; No JVD, RRR Abdominal: - - abd soft, nontender, nondistended Extremities: No Edema, No Clubbing, Cyanosis Skin: No Rash or Ulcers Neurological: Alert and Oriented x 3 Result Diagrams: 03/18/19 04:33 03/19/19 04:45 Microbiology and Other Data: . Assess/Plan/Problems-Billing Assessment: Ms. Craven is a 68 yo F with a PMH of who was admitted on 03/17/19 with COPD exacerbation and NSTEMI. - Patient Problems (1) NSTEMI (non-ST elevated myocardial infarction) Current Visit: Yes Status: Acute Code(s): I21.4 - NON-ST ELEVATION (NSTEMI) MYOCARDIAL INFARCTION SNOMED Code(s): 96683812 Comment: - Trop peaked at 1.59, J point elevation in V1 and V2 - Echo found hypokinesis of the basal mid-anteroseptal and basal mid- inferolateral segments, EF intact - Appreciate cardiology consultation - nuclear chemical stress test reproduced shortness of breath symptomatically; Nuclear portion reports hypokinesis at the septum- low risk - Cardiac cath today without significant disease - Likely this was a type II NSTEMI in the setting of COPD exacerbation - Continue aspirin, atorvastatin - Decreasing metoprolol due to bradycardia (2) COPD with exacerbation Current Visit: No Status: Acute Priority: High Code(s): J44.1 - CHRONIC OBSTRUCTIVE PULMONARY DISEASE W (ACUTE) EXACERBATION SNOMED Code(s): 840614901 Comment: - Resolving, off oxygen - Continue prednisone, azithromycin and ceftriaxone - Peribronchial airway thickening noted on the CTA chest, recommendation for outpatient follow up, PFTs, and bronchial sampling (3) Hypertension Current Visit: Yes Status: Acute Code(s): I10 - ESSENTIAL (PRIMARY) HYPERTENSION SNOMED Code(s): 96469058 Comment: - Hypertenisve - Increasing HCTZ and losartan (4) Diabetes mellitus type 2 in nonobese Current Visit: Yes Status: Acute Code(s): E11.9 - TYPE 2 DIABETES MELLITUS WITHOUT COMPLICATIONS SNOMED Code(s): 616452015 Comment: -new diagnosis with A1c 6.6 during this hospitalization -likely should be started on metformin at discharge (5) Chronic pain Current Visit: Yes Status: Acute Code(s): G89.29 - OTHER CHRONIC PAIN SNOMED Code(s): 15204911 Comment: - Continue methadone (6) DVT prophylaxis Current Visit: No Status: Acute Code(s): IZM1467 - SNOMED Code(s): 562920273 Comment: - Heparin gtt (7) Full code status Current Visit: Yes Status: Acute Code(s): Z78.9 - OTHER SPECIFIED HEALTH STATUS SNOMED Code(s): 185555442 Comment: Status and Disposition: Inpatient, anticipate discharge to home when medically stable.
[2019-03-22] MEDS: SPIRIVA Respimat* (tiotropium) 2.5 mcg/inh Inhaler INH SCH (08:07)
[2019-03-22] MEDS ORDERED: Metoprolol Succinate XL TAB* 25 MG PO SCH (09:00)
[2019-03-22 09:34] LABS: BUN/Creatinine Ratio 18.6 (8-20); Calcium 9.7 mg/dL (8.6-10.3); EGFR African American 65.2 (>60); EGFR Non-African American 53.9 (>60); Potassium 3.6 mmol/L (3.5-5.0)
[2019-03-22] MEDS: Losartan TAB* 25 MG PO SCH (10:47)
[2019-03-22] MEDS: Hydrochlorothiazide TAB* 25 MG PO SCH (10:49)
[2019-03-22] MEDS: Atorvastatin* 20 MG TAB PO SCH (10:50)
[2019-03-22] MEDS: Methadone TAB* 10 MG PO SCH ×2 (10:50→21:39)
[2019-03-22] MEDS: Aspirin 81 mg CHEW TAB* 81 MG TAB.CHEW PO SCH (10:54)
--- NOTE | 2019-03-22 10:58 | PN ---
<Ria Muller - Last Filed: 03/22/19 10:52> Subjective Date of Service: 03/22/19 - ? Prinzmetals angina, COPD exacerbation Interval History: f/u NSTEMI, LHC did not reveal obstructive CAD Denies chest pain, this morning was the first time she got up to ambulate to bathroom, she became tachycardic HR 130's with associated dyspnea and hypoxia ( Spo2 was 88%). She adds she was slightly dizzy as well. no c/o right femoral access pain. Does report + cough but no sputum production. She had her first dose of Spiriva today;. Medications Active Medications: Albuterol (Ventolin Hfa Inhaler*) 2 puff INH Q4H PRN PRN Reason: WHEEZING Aspirin (Aspirin 81 Mg Chew Tab*) 81 mg PO DAILY [facility] Last Admin: 03/21/19 07:54 Dose: 81 mg Atorvastatin Calcium (Lipitor*) 20 mg PO DAILY [facility]; Protocol Last Admin: 03/21/19 12:42 Dose: 20 mg Diltiazem HCl (Cardizem Tab*) 60 mg PO BID [facility] Stop: 03/22/19 11:01 Diltiazem HCl (Cardizem Cd Cap*) 120 mg PO DAILY [facility] Guaifenesin/Dextromethorphan (Robitussin Dm 100 Mg/10 Mg In 5 Ml) 10 ml PO Q6H PRN PRN Reason: COUGH Hydrochlorothiazide (Hydrodiuril Tab*) 25 mg PO QAM [facility] Azithromycin 250 mg/ Sodium (Chloride) 250 mls @ 250 mls/hr IVPB Q24H [facility] Stop: 03/22/19 15:59 Last Admin: 03/21/19 15:28 Dose: 250 mls/hr Ceftriaxone Sodium 1 gm/ (Sodium Chloride) 50 mls @ 100 mls/hr IVPB Q24H [facility] Last Admin: 03/21/19 14:10 Dose: 100 mls/hr Losartan Potassium (Cozaar Tab*) 100 mg PO QAM [facility] Melatonin (Melatonin) 3 mg PO BEDTIME PRN PRN Reason: SLEEP Last Admin: 03/18/19 22:35 Dose: 3 mg Methadone HCl (Dolophine Tab*) 10 mg PO DAILY [facility] Last Admin: 03/21/19 12:42 Dose: 10 mg Methadone HCl (Dolophine Tab*) 15 mg PO BEDTIME [facility] Last Admin: 03/21/19 21:03 Dose: 15 mg Polyethylene Glycol/Electrolytes (Miralax*) 17 gm PO DAILY PRN PRN Reason: CONSTIPATION Prednisone (Deltasone 20 Mg Tab) 40 mg PO DAILY [facility] Last Admin: 03/21/19 12:43 Dose: 40 mg Sodium Chloride (Sodium Chloride 0.65% Nasal Drops*) 1 drop BOTH NARES Q4H PRN PRN Reason: CONGESTION Tiotropium [place] (Spiriva Respimat 2.5 Mcg) 2 puff INH DAILY [facility] Last Admin: 03/22/19 08:07 Dose: 2 puff Objective Vital Signs: Temp Pulse Resp BP Pulse Ox 97.6 F 65 16 148/78 93 03/22/19 08:15 03/22/19 08:15 03/22/19 08:15 03/22/19 09:51 03/22/19 08:15 Oxygen Devices in Use Now: Nasal Cannula Appearance: nad, lying upright in bed. A+O x3 Eyes: No Scleral Icterus Ears/Nose/Mouth/Throat: Clear Oropharnyx, Mucous Membranes Moist Neck: NL Appearance and Movements; NL JVP Respiratory: Symmetrical Chest Expansion and Respiratory Effort, Clear to Auscultation, - - + cough with wheezing associated with cough Cardiovascular: RRR Abdominal: No Hepatosplenomegaly Extremities: No Edema - right femoral access site has 3+ pulse, no thrill. No hematoma. [place] size area of firmness with slight discomfort with palpation. 3 + right DP pulse. Skin: No Rash or Ulcers Neurological: Alert and Oriented x 3 Lines/Tubes/Other Access: Clean, Dry and Intact Peripheral IV Laboratory Results: 03/18/19 04:33 03/22/19 08:47 APTT 70.0 seconds (26.0-38.0) H 03/20/19 09:14 Total Bilirubin 0.40 mg/dL (0.2-1.0) 03/18/19 04:33 AST 20 U/L (13-39) 03/18/19 04:33 ALT 13 U/L (7-52) 03/18/19 04:33 Alkaline Phosphatase 55 U/L (34-104) 03/18/19 04:33 B-Natriuretic Peptide 63 pg/mL (<=100) 03/17/19 11:36 Total Protein 6.2 g/dL (6.4-8.9) L 03/18/19 04:33 Albumin 3.8 g/dL (3.2-5.2) 03/18/19 04:33 Globulin 2.4 g/dL (2-4) 03/18/19 04:33 Albumin/Globulin Ratio 1.6 (1-3) 03/18/19 04:33 Triglycerides 82 mg/dL 03/18/19 04:33 Cholesterol 143 mg/dL 03/18/19 04:33 LDL Cholesterol 64 mg/dL 03/18/19 04:33 HDL Cholesterol 62.2 mg/dL 03/18/19 04:33 TSH 0.20 mcIU/mL (0.34-5.60) L 03/18/19 04:33 03/17/19 03/17/19 03/17/19 11:36 14:44 18:37 Troponin I 0.31 H* 0.64 H* 1.11 H* 03/17/19 03/18/19 22:22 01:55 Troponin I 1.59 H* 1.40 H* Laboratory Results - last 24 hr 03/22/19 08:47 Sodium 138 Potassium 3.6 Chloride 100 L Carbon Dioxide 29 Anion Gap 9 BUN 19 Creatinine 1.02 H Est GFR ( Amer) 65.2 Est GFR (Non-Af Amer) 53.9 BUN/Creatinine Ratio 18.6 Glucose 123 H Calcium 9.7 Diagnostic Imaging: Transthoracic Echocardiogram Patient: Marilee Craven I : 1950 Study Date: 03/17/2019 Conclusion Summary: - Left ventricle: Systolic function is normal. The estimated ejection fraction is 50-55%. Hypokinesis of the basal-midanteroseptal myocardium. Hypokinesis of the basal-midinferoseptal myocardium. - Mitral valve: There is trace regurgitation. - Tricuspid valve: There is trace regurgitation. - No previous echocardiogram available. CTA chest Exam Date: 03/17/19 IMPRESSION: 1. NO PULMONARY ARTERIAL FILLING DEFECT TO SUGGEST PULMONARY EMBOLISM. 2. THERE HAS BEEN INTERVAL DEVELOPMENT OF PERIBRONCHIAL VASCULAR THICKENING OF THE AIRWAYS TO THE RIGHT LOWER LOBE WITH PARTIAL THERE IS A LINEAR ATELECTASIS OF THE RIGHT LOWER LOBE. THIS MAY REFLECT AN INFECTIOUS OR NONINFECTIOUS INFLAMMATORY PROCESS , THOUGH NEOPLASM IS ALSO WITHIN THE DIFFERENTIAL. RECOMMEND CONSIDERATION OF CORRELATION WITH DIRECT VISUALIZATION IN THE NONACUTE SETTING. stress MPi today 03/20/2019 presenting symptom of severe dyspnea reproduced MPI reviewed and was normal no definite ischemic changes Cardiac Catheterization Report MARILEE CRAVEN I [id number] 03/18/19 DESCRIPTION OF PROCEDURE: The patient was brought to the cardiovascular laboratory where a formal time- out was performed. She was prepped and draped in sterile fashion and the right groin area was anesthetized with 1% lidocaine. The right femoral artery was cannulated with an anterior wall only stick and the sheath was placed. Coronary arteriography was performed followed by left heart catheterization. Left ventriculography was performed with a total of 24 cc of Omnipaque dye at a rate of 12 cc per second. The catheter was then pulled back across the aortic valve to recheck gradient. At the end of the case, an injection was made into the right femoral artery sheath to assess eligibility to utilize a closure device. It appeared that the sheath may be in the profunda branch of the femoral artery, and as such, manual closure technique was utilized with good hemostasis. The total contrast used was a total of 65 cc of Omnipaque dye. The radiation exposure included 5.7 minutes of fluoro time. The air kerma radiation was 1068 mGy. The DAP radiation was 6311 microgray per meter squared. RESULTS: LEFT VENTRICULOGRAPHY: Performed in the ACE projection revealed symmetrical contraction of the left ventricle with no obvious focal wall motion abnormality. The ejection fraction was estimated at approximately 60 % to 65%. There was no significant mitral regurgitation noted. HEMODYNAMIC DATA: Left heart catheterization revealed central aortic pressure recorded at 160/63 with a mean of 104, left ventricular pressure was recorded at 159 over left ventricular end-diastolic pressure from 20 to 23 mmHg. CORONARY ARTERIOGRAPHY: A. Left coronary artery: 1. Left main - widely patent. There was no significant obstruction seen. There was mild calcium noted within the wall of the left main, but no significant stenosis was seen. 2. Left anterior descending artery. The left anterior descending artery supplied a small first diagonal branch followed by 2 more diagonal branches. The proximal portion to mid portion had mild calcification. The proximal to mid portion had mild narrowing of approximately 25% with calcium. Of note, this was right at the area of the first septal blood collector and just after it. Of note, the first septal blood collector was widely patent and there was no significant lesion seen in it. The continuation of the LAD reached to the apical region and onto the distal inferior wall. There was no significant obstruction seen throughout the rest of the vessel as well. 3. Circumflex artery - a nondominant vessel supplying a thin first obtuse marginal branch with a moderate trifurcating mid obtuse marginal branch and ending in a low- lying thin obtuse marginal branch. There was no significant disease seen throughout the course of the circumflex vessel. Of note, the proximal portion did appear to have a retroflexed area, but no compromise was noted. B. Right coronary artery: A dominant vessel supplying multiple acute marginal branches as well as the posterior descending artery and 3 posterior left ventricular branches, of which the first two were small in caliber at best. The PDA itself appeared to be a bifurcating vessel. There was mild calcification seen within the wall of the right coronary artery in its mid portion with mild luminal reduction of 20% to 25%. OVERALL ASSESSMENT: Normal overall left ventricular contractility with evidence of decreased left ventricular diastolic compliance evidenced by increased left ventricular end-diastolic pressure. Of note, essential hypertension was noted in the labeling associate albeit under some degree of stress with the catheterization procedure being done. No significant obstructive coronary artery disease seen with calcium noted within the wall of the left main , proximal to mid LAD with a mild lesion at the proximal to mid LAD as described above at and after the first septal blood collector. Mild disease noted in the mid right coronary artery with calcium as well. This information was shared with Dr. Cazares, who was the hospital senior accounting manager on the day of cardiac catheterization. He will manage with medical management with regard to her acute coronary syndrome presentation and she will be seen in followup next week with Dr. Harley Waddell, who she has seen in the past in the office. This report is only to be considered final once signed by the Provider(s) as displayed in the "<Electronically Signed by >" field (s). Absence of a signature indicates the report is in a draft status and still needs to be finalized. In the event this document was created by someone other than the signing Provider, the individual initiating the document will be listed in the "Entered by:" or "Dictated by:" ramos. 2 of 3 EKG Data: ECG x 4 reviewed 03/17/2019, SR, ST, no significant ST changes. 03/22/2019 ECG; Sinus tachycardic rate [address] diffuse [address] depression. Monitor 03/22/2019- Sinus rhythm with PACs rate 80's with periods of tachycardia 100-130's with ambulation to bathroom. Assessment/Plan 68 year old woman with tobacco use, HTN, dyslipidemia, COPD, admitted with acute IL, mechanism uncertain in setting of respiratory tract infection/COPD exacerbation [facility] 03/21/2019 did not reveal obstructive CAD. There was concern for ? prinzmetal angina versus focal takotsubo, there was no systolic milking to suggest myocardial bridging per . Mechanism for NSTEMI is not clear thus, it may be reasonable to place her on DAPT ( ASA 81/day, Plavix 75/day) for 6 months I will confirm this with Dr. Matthews. Will d/c Toprol and RX Cardizem. Continue statin therapy. LDL is at goal (64) Will follow closely and adjust Cardizem according to rate/blood pressure response. I spoke with primary team in regards to exertional dyspnea this morning with associated hypoxia and tachycardia. They are to screen for ? day time oxygen use upon discharge and address COPD, it appears she had first dose of Spiriva today prior to episode, although this was the first time she has ambulated. Attending: Bettye Matthews <Bettye Matthews - Last Filed: 03/22/19 15:01> Medications Active Medications: Albuterol (Ventolin Hfa Inhaler*) 2 puff INH Q4H PRN PRN Reason: WHEEZING Aspirin (Aspirin 81 Mg Chew Tab*) 81 mg PO DAILY [facility] Last Admin: 03/22/19 10:54 Dose: 81 mg Atorvastatin Calcium (Lipitor*) 20 mg PO DAILY [facility]; Protocol Last Admin: 03/22/19 10:50 Dose: 20 mg Diltiazem HCl (Cardizem Cd Cap*) 120 mg PO DAILY [facility] Diltiazem HCl (Cardizem Tab*) 60 mg PO Q6H [facility] Stop: 03/22/19 22:01 Guaifenesin (Mucinex*) 600 mg PO BID [facility] Last Admin: 03/22/19 14:50 Dose: 600 mg Guaifenesin/Dextromethorphan (Robitussin Dm 100 Mg/10 Mg In 5 Ml) 10 ml PO Q6H PRN PRN Reason: COUGH Hydrochlorothiazide (Hydrodiuril Tab*) 25 mg PO QAM [facility] Last Admin: 03/22/19 10:49 Dose: 25 mg Azithromycin 250 mg/ Sodium (Chloride) 250 mls @ 250 mls/hr IVPB Q24H [facility] Stop: 03/22/19 15:59 Last Admin: 03/21/19 15:28 Dose: 250 mls/hr Ceftriaxone Sodium 1 gm/ (Sodium Chloride) 50 mls @ 100 mls/hr IVPB Q24H [facility] Last Admin: 03/22/19 14:49 Dose: 100 mls/hr Losartan Potassium (Cozaar Tab*) 100 mg PO QAM [facility] Last Admin: 03/22/19 10:47 Dose: 100 mg Melatonin (Melatonin) 3 mg PO BEDTIME PRN PRN Reason: SLEEP Last Admin: 03/18/19 22:35 Dose: 3 mg Metformin HCl (Glucophage*) 500 mg PO DAILY [facility] Methadone HCl (Dolophine Tab*) 10 mg PO DAILY [facility] Last Admin: 03/22/19 10:50 Dose: 10 mg Methadone HCl (Dolophine Tab*) 15 mg PO BEDTIME [facility] Last Admin: 03/21/19 21:03 Dose: 15 mg Polyethylene Glycol/Electrolytes (Miralax*) 17 gm PO DAILY PRN PRN Reason: CONSTIPATION Prednisone (Deltasone 20 Mg Tab) 40 mg PO DAILY [facility] Last Admin: 03/22/19 10:49 Dose: 40 mg Sodium Chloride (Sodium Chloride 0.65% Nasal Drops*) 1 drop BOTH NARES Q4H PRN PRN Reason: CONGESTION Tiotropium [place] (Spiriva Respimat 2.5 Mcg) 2 puff INH DAILY [facility] Last Admin: 03/22/19 08:07 Dose: 2 puff Objective Vital Signs: Temp Pulse Resp BP Pulse Ox 98.4 F 98 18 122/64 89 03/22/19 13:23 03/22/19 13:23 03/22/19 14:50 03/22/19 11:57 03/22/19 13:23 Laboratory Results: 03/18/19 04:33 03/22/19 08:47 APTT 70.0 seconds (26.0-38.0) H 03/20/19 09:14 Total Bilirubin 0.40 mg/dL (0.2-1.0) 03/18/19 04:33 AST 20 U/L (13-39) 03/18/19 04:33 ALT 13 U/L (7-52) 03/18/19 04:33 Alkaline Phosphatase 55 U/L (34-104) 03/18/19 04:33 B-Natriuretic Peptide 63 pg/mL (<=100) 03/17/19 11:36 Total Protein 6.2 g/dL (6.4-8.9) L 03/18/19 04:33 Albumin 3.8 g/dL (3.2-5.2) 03/18/19 04:33 Globulin 2.4 g/dL (2-4) 03/18/19 04:33 Albumin/Globulin Ratio 1.6 (1-3) 03/18/19 04:33 Triglycerides 82 mg/dL 03/18/19 04:33 Cholesterol 143 mg/dL 03/18/19 04:33 LDL Cholesterol 64 mg/dL 03/18/19 04:33 HDL Cholesterol 62.2 mg/dL 03/18/19 04:33 TSH 0.20 mcIU/mL (0.34-5.60) L 03/18/19 04:33 03/17/19 03/17/19 03/17/19 11:36 14:44 18:37 Troponin I 0.31 H* 0.64 H* 1.11 H* 03/17/19 03/18/19 22:22 01:55 Troponin I 1.59 H* 1.40 H* Assessment/Plan The above reviewed and pt examined personally New medication today spiriva could contribute to sinus tachycardia in addtion to albuterol, risk of rebound from steroids, opiates and hypoxemia itself could lead to ST. Agree with converting BB to CCB as above.
[2019-03-22] MEDS ORDERED: Diltiazem TAB* 60 MG PO SCH ×2 (11:00→18:00)
--- NOTE | 2019-03-22 11:51 | PN ---
Subjective Date of Service: 03/22/19 Interval History: Ms. Craven is generally feeling better today. She is feeling SOB and has feelings of her heart racing when she gets OOB, even with minimal exertion. No significant SOB at rest. Denies CP, N/V. Nursing reports tachycardia up into 130s with ambulation. Family History: Unchanged from Admission Social History: Unchanged from Admission Past Medical History: Unchanged from Admission Objective Active Medications: Albuterol (Ventolin Hfa Inhaler*) 2 puff INH Q4H PRN WHEEZING Aspirin (Aspirin 81 Mg Chew Tab*) 81 mg PO DAILY [facility] Atorvastatin Calcium (Lipitor*) 20 mg PO DAILY [facility]; Protocol Diltiazem HCl (Cardizem Cd Cap*) 120 mg PO DAILY [facility] Diltiazem HCl (Cardizem Tab*) 60 mg PO Q6HR [facility] Guaifenesin (Mucinex*) 600 mg PO BID [facility] Guaifenesin/Dextromethorphan (Robitussin Dm 100 Mg/10 Mg In 5 Ml) 10 ml PO Q6H PRN COUGH Hydrochlorothiazide (Hydrodiuril Tab*) 25 mg PO QAM [facility] Azithromycin 250 mg/ Sodium (Chloride) 250 mls @ 250 mls/hr IVPB Q24H [facility] Ceftriaxone Sodium 1 gm/ (Sodium Chloride) 50 mls @ 100 mls/hr IVPB Q24H [facility] Losartan Potassium (Cozaar Tab*) 100 mg PO QAM [facility] Melatonin (Melatonin) 3 mg PO BEDTIME PRN SLEEP Methadone HCl (Dolophine Tab*) 10 mg PO DAILY [facility] Methadone HCl (Dolophine Tab*) 15 mg PO BEDTIME [facility] Polyethylene Glycol/Electrolytes (Miralax*) 17 gm PO DAILY PRN CONSTIPATION Prednisone (Deltasone 20 Mg Tab) 40 mg PO DAILY [facility] Sodium Chloride (Sodium Chloride 0.65% Nasal Drops*) 1 drop BOTH NARES Q4H PRN CONGESTION Tiotropium [place] (Spiriva Respimat 2.5 Mcg) 2 puff INH DAILY [facility] Vital Signs - 8 hr 03/22/19 03/22/19 03/22/19 08:11 08:15 09:51 Temperature 97.6 F Pulse Rate 55 65 Respiratory 14 16 Rate Blood Pressure 151/72 148/78 (mmHg) O2 Sat by Pulse 92 93 Oximetry Oxygen Devices in Use Now: None Appearance: Middle-aged female sitting in bed in NAD Ears/Nose/Mouth/Throat: Mucous Membranes Moist Neck: NL Appearance and Movements; NL JVP, Trachea Midline Respiratory: Symmetrical Chest Expansion and Respiratory Effort, Clear to Auscultation - Diminished Cardiovascular: NL Sounds; No Murmurs; No JVD, RRR Abdominal: NL Sounds; No Tenderness; No Distention Extremities: - - Mild nonpitting BLE Neurological: Alert and Oriented x 3 Lines/Tubes/Other Access: Clean, Dry and Intact Peripheral IV Nutrition: Taking PO's Result Diagrams: 03/18/19 04:33 03/22/19 08:47 Assess/Plan/Problems-Billing Assessment: Ms. Craven is a 68 yo F with a PMH of HTN and COPD; who presented with c/o SOB and was admitted with COPD exacerbation and NSTEMI. - Patient Problems (1) NSTEMI (non-ST elevated myocardial infarction) Code(s): I21.4 - NON-ST ELEVATION (NSTEMI) MYOCARDIAL INFARCTION Comment: - Trop peaked at 1.59, J point elevation in V1 and V2 - Echo found hypokinesis of the basal mid-anteroseptal and basal mid- inferolateral segments, EF intact - Appreciate Cardiology consult - Nuclear chemical stress test reproduced shortness of breath symptomatically, hypokinesis at the septum, low risk - Cardiac cath 03/21 without significant disease - Likely this was a type II NSTEMI in the setting of COPD exacerbation - Bradycardic yesterday, now tachycardic with exertion today; Cardiology starting diltiazem - Continue aspirin, atorvastatin; start diltiazem per Cardiology (2) COPD with exacerbation Code(s): J44.1 - CHRONIC OBSTRUCTIVE PULMONARY DISEASE W (ACUTE) EXACERBATION Comment: - Resolving, off oxygen - Peribronchial airway thickening noted on the CTA chest, recommendation for outpatient follow up, PFTs, and bronchial sampling - Continue prednisone, azithromycin (day 5/5), ceftriaxone (day 5/7) (3) Hypertension Code(s): I10 - ESSENTIAL (PRIMARY) HYPERTENSION Comment: - Normotensive - Continue HCTZ, losartan (4) Diabetes mellitus type 2 in nonobese Code(s): E11.9 - TYPE 2 DIABETES MELLITUS WITHOUT COMPLICATIONS Comment: - New diagnosis with A1c 6.6% during this hospitalization - Start metformin (5) Chronic pain Code(s): G89.29 - OTHER CHRONIC PAIN Comment: - Continue methadone (6) DVT prophylaxis Comment: - Ambulation (7) Full code status Code(s): Z78.9 - OTHER SPECIFIED HEALTH STATUS Comment: Status and Disposition: Inpatient. Anticipate discharge home when medically stable, likely tomorrow. Attending: Karyna Kunz
[2019-03-22] MEDS ORDERED: metFORMIN* 500 MG TAB PO SCH (12:00)
[2019-03-22] MEDS: cefTRIAXone(*) 1 GM in NS 0.9% 50 ML* 50 ML IVPB SCH (14:49)
[2019-03-22] MEDS: guaiFENesin ER TAB 600 MG PO SCH ×2 (14:50→21:38)
[2019-03-22] MEDS: Diltiazem TAB* 60 MG PO SCH ×2 (16:23→21:38)
[2019-03-23] MEDS: SPIRIVA Respimat* (tiotropium) 2.5 mcg/inh Inhaler INH SCH (08:02)
[2019-03-23] MEDS ORDERED: Diltiazem CD CAP* 120 MG PO SCH (09:00)
[2019-03-23] MEDS ORDERED: metFORMIN* 500 MG TAB PO SCH (09:00)
[2019-03-23] MEDS: Hydrochlorothiazide TAB* 25 MG PO SCH (09:21)
[2019-03-23] MEDS: guaiFENesin ER TAB 600 MG PO SCH (09:21)
[2019-03-23] MEDS: Methadone TAB* 10 MG PO SCH (09:21)
[2019-03-23] MEDS: Atorvastatin* 20 MG TAB PO SCH (09:22)
[2019-03-23] MEDS: Losartan TAB* 25 MG PO SCH (09:22)
[2019-03-23] MEDS: Aspirin 81 mg CHEW TAB* 81 MG TAB.CHEW PO SCH (09:23)
[2019-03-23 11:30] LABS: Hematocrit 44 % (35-47); Hemoglobin 14.9 g/dL (12.0-16.0)
[2019-03-23 13:00] VITALS: BP 132/61
--- NOTE | 2019-03-23 15:55 | DS ---
CC: Dr. Mahendra Arenas; Dr. Harley Waddell * DISCHARGE SUMMARY: DATE OF ADMISSION: 03/17/19 DATE OF DISCHARGE: 03/23/19 PRIMARY CARE PROVIDER: Dr. Mahendra Arenas. ASSEMBLY MACHINE TOOL SETTER: Dr. Harley Waddell. ATTENDING PHYSICIAN: Dr. Karyna Kunz.* (DICTATED BY EDU DAVIS NP) PRIMARY DIAGNOSES: 1. Chronic obstructive pulmonary disease exacerbation. 2. Takotsubo cardiomyopathy. 3. Acute on chronic hypoxic respiratory failure. 4. Diabetes mellitus type 2. SECONDARY DIAGNOSES: 1. Hypertension. 2. Chronic pain. STUDIES WHILE IN THE HOSPITAL: 1. Chest x-ray on 03/17/19 reads as hyperinflation. No active cardiopulmonary disease. 2. EKG on 03/17/19 shows normal sinus rhythm with a rate of 84, QTc 437. 3. Chest CTA on 03/17/19 reads as no pulmonary arterial filling defect to suggest pulmonary embolism. There has been interval development of peribronchial vascular thickening of the airways to the right lower lobe that is partial. There is a linear atelectasis of the right lower lobe. This may reflect an infectious or noninfectious inflammatory process, though neoplasm is also within the differential. Recommend consideration of correlation with direct visualization in the nonacute settings. 4. EKG on 03/17/19 shows normal sinus rhythm with a rate of 87, QTc 437. 5. Transthoracic echocardiogram on 03/17/19 reads as left ventricular systolic function is normal. The estimated ejection fraction is 50% to 55%. Hypokinesis of the basal mid anteroseptal myocardium. Hypokinesis of the basal mid inferoseptal myocardium. There is trace mitral regurgitation. There is trace tricuspid regurgitation. No previous echocardiogram for comparison. 6. EKG on 03/17/19 shows normal sinus rhythm with a rate of 86, minimal ST elevation in the anterior leads. 7. EKG on 03/17/19 shows normal sinus rhythm with a rate of 89, minimal ST elevation remains present. 8. Nuclear cardiac stress test on 03/20/19 reads as no definite fixed or reversible perfusion defect. Assessment is low risk. 9. EKG on 03/22/19 shows normal sinus rhythm with a rate of 99, minimal ST depression in the inferior leads. PROCEDURES WHILE IN THE HOSPITAL: 1. Cardiac catheterization on 03/21/[address] Shaffer. HISTORY OF PRESENT ILLNESS AND HOSPITAL COURSE: Ms. Craven is a 68-year-old female with past medical history of hypertension and COPD, who presented to the emergency room on 03/17/19 with complaints of shortness of breath. Please see the history and physical by Rachael Avendano NP for complete summary of the events leading up to this hospitalization. In short, the patient was ambulating in her home when she had sudden onset of shortness of breath. She does wear oxygen at night at baseline and also she applied her home O2 which improved symptoms, though she did present to the emergency room out of concern. In the emergency room, the patient had imaging as noted above. She had lab work which revealed an elevated troponin of 0.31. She was admitted by the hospitalist service. Troponin peaked at 1.59. The patient did not have any chest pain, but there were some mild EKG changes and so Cardiology was consulted. Initially, Cardiology advised that they would follow the patient closely. She did have a stress test which was noted to be low risk. So, because of her rising troponin , she was ultimately taken to the manufacturing lab[facility] with Dr. Shaffer on 03/21/19. During that time, there was some evidence of decreased left ventricular diastolic compliance, though no significant obstructive coronary artery disease was noted. At this point, it is suspected that the patient experienced an episode of Takotsubo cardiomyopathy secondary to her COPD exacerbation, though EF did remain normal. Regarding her COPD, the patient was ultimately treated with antibiotics. Though there was no clear evidence of pneumonia, her symptoms were concerning enough that it was felt necessary. She did complete a 5-day course of azithromycin and has completed 5 days of cephalosporin while here in the hospital. She has also been on prednisone for treatment of her COPD exacerbation. She initially was requiring oxygen at 2 L to maintain saturations , though at this point is saturating well on room air. I did personally walk in the hallway with the patient this morning and O2 sat dropped to 90% while ambulating on room air. She was noted yesterday to have some tachycardia with ambulation with heart rate jumping up into the 130s and some associated shortness of breath. Her metoprolol was discontinued by Cardiology the day before. The patient did experience some bradycardia with metoprolol and Cardiology instead placed her on diltiazem. Overall, the patient's heart rate has improved. Though she does remain tachycardic with exertion this morning, she does recover quickly when sitting and is having minimal shortness of breath with exertion. I did speak with Dr. Waddell this morning who does know the patient on an outpatient basis and he felt comfortable with her going home on Cardizem despite her tachycardia with exertion. Today, the patient reports feeling well and she is anxious to return home. On exam, she is alert and oriented x4 with no focal neurological deficits. Heart has a regular rate and rhythm without murmurs, rubs, or gallops. Lungs are clear, but diminished to auscultation without rhonchi, wheezes, or rubs. There is no edema. Physical exam is otherwise benign. Ms. Craven is stable for discharge today. Most recent vitals are as follows: Temp 98.4, heart rate 87, respiratory rate 16, oxygen saturation 92% on room air , blood pressure 132/61. DISCHARGE MEDICATIONS: New: 1. Aspirin 81 mg p.o. daily. 2. Cefdinir 300 mg p.o. b.i.d. x2 days. 3. Diltiazem CD 120 mg p.o. daily. 4. Mucinex 600 mg p.o. b.i.d. x7 days. 5. Metformin 500 mg p.o. daily. 6. Prednisone taper (30 mg for 3 days, then 20 mg for 3 days, then 10 mg for 3 days). Continued: 1. Acetaminophen 500 mg p.o. daily p.r.n. pain. 2. Albuterol MDI 2 puffs q.4 hours p.r.n. shortness of breath and wheezing. 3. Losartan/hydrochlorothiazide 100/25 half tab p.o. daily. 4. Methadone 10 to 20 mg p.o. q.6 hours p.r.n. pain. 5. MiraLAX 17 g p.o. daily. 6. Rosuvastatin 10 mg p.o. daily. 7. Anoro 62.5/25 one puff daily. DISCHARGE PLAN: Ms. Craven will be discharged to home. Activity will be as tolerated. Diet will be regular as tolerated. Medications are noted above. Per Cardiology, the patient should remain on aspirin at this point and has been prescribed Cardizem with instructions to follow up closely outpatient to determine if there is additional titration necessary. She will need to complete an additional 2 days of cefdinir to complete a total of 7 days of cephalosporin therapy for possible pneumonia associated with COPD exacerbation. Additionally, she was noted to have an A1c of 6.6%. I did speak with the patient and she is agreeable to starting metformin at this point. She is also aware of some diet changes that should be made. The patient has been on steroids multiple times in the last 3 months and so. I think that she is likely prediabetic, the steroids have pushed her into diabetic range, and so hopefully she will not need to remain on metformin indefinitely. She will also need to complete a prednisone taper. She can continue her other usual medications as noted above. She will need to follow up with her primary care provider in the next 4 to 7 days. She will also need to follow up closely with Cardiology and she has an appointment with Dr. Waddell on 03/28/19 at 11 a.m. She has been advised to return to the emergency room or nearest hospital for any worsening of symptoms, shortness of breath, lightheadedness, dizziness, chest discomfort, high fever, chills, night sweats, loss of consciousness, or any other worrisome signs or symptoms. DISCHARGE CONDITION: Stable. DISCHARGE DISPOSITION: Home. This is a summarized report of complex medical history and hospital stay. For further details, please see the entire medical record. TIME SPENT: Approximately 50 minutes was spent on this discharge. EDU DAVIS NP [id number]/[facility] #: [id number] [place]
== END 2019-03-23 13:00 | disposition home or self-care (01) | DRG 286 ==
LOC: ED 10:48 → MEDTELE 17:27 → OBSVTOIN 03-18 09:00 → MEDTELE 03-19 19:52
PROVIDERS: ADMIT Internal Medicine; ATTEND Internal Medicine
PROC: B2151ZZ Fluoroscopy of Left Heart using Low Osmolar Contrast (ICD-10-PCS; 2019-03-21)
PROC: 4A023N7 Measurement of Cardiac Sampling and Pressure, Left Heart, Percutaneous Approach (ICD-10-PCS; 2019-03-21)
PROC: B2111ZZ Fluoroscopy of Multiple Coronary Arteries using Low Osmolar Contrast (ICD-10-PCS; principal; 2019-03-21 08:30)
DX: I51.81 Takotsubo syndrome (principal); J96.21 Acute and chronic respiratory failure with hypoxia; J44.1 Chronic obstructive pulmonary disease with (acute) exacerbation; E66.9 Obesity, unspecified; I10 Essential (primary) hypertension; E78.5 Hyperlipidemia, unspecified; J44.9 Chronic obstructive pulmonary disease, unspecified; R94.31 Abnormal electrocardiogram [ECG] [EKG]; I25.10 Atherosclerotic heart disease of native coronary artery without angina pectoris; G89.29 Other chronic pain; R00.0 Tachycardia, unspecified; M19.041 Primary osteoarthritis, right hand; M19.012 Primary osteoarthritis, left shoulder; D72.829 Elevated white blood cell count, unspecified; E11.9 Type 2 diabetes mellitus without complications; Z79.899 Other long term (current) drug therapy; Z68.28 Body mass index [BMI] 28.0-28.9, adult; Z87.891 Personal history of nicotine dependence; Z28.21 Immunization not carried out because of patient refusal; Z91.048 Other nonmedicinal substance allergy status; Z85.828 Personal history of other malignant neoplasm of skin
CPT/HCPCS: 36415; 71046; 71275; 78452; 80048; 80053; 80061; 81003; 82565; 83036; 83605; 83735; 83880; 84436; 84443; 84481; 84484; 84520; 85014; 85018; 85025; 85730; 87040; 87070; 87107; 87205; 87899; 93005; 93017; 93306; 93458; 94640; 96374; 96375; 99156; 99157; 99285; A9270-GY; A9502; C1887; C8929; G0378; J0456; J0696; J1100; J1644; J2250; J2785; J3010; J3475; J3535; J7512; Q9967

== ENCOUNTER 2019-09-05 11:38 | Observation (INO) ==
[2019-09-05] MEDS ORDERED: Albuterol/Ipratropium NEB.SOL (2.5/0.5 MG) 3 ML NEB.SOLN INH ONE (12:11)
[2019-09-05 12:36] LABS: ABS Eosinophils 0.2 10^3/ul (0-0.6); ABS Lymphocytes 1.1 10^3/ul (1.0-4.8); ABS Monocytes 0.6 10^3/ul (0-0.8); ABS Neutrophils 7.7 10^3/ul (1.5-7.7); Eosinophil % 2.6 %; Hematocrit 41 % (35-47); Hemoglobin 14.2 g/dL (12.0-16.0); Lymphocyte % 11.8 %; Mean Corpuscular HGB Conc 35 g/dL (31-36); Mean Corpuscular Hemoglobin 29 pg (27-31); Mean Corpuscular Volume 84 fL (80-97); Mean Platelet Volume 7.6 fL (7.4-10.4); Platelet Count 310 10^3/uL (150-450); Red Blood Count 4.87 10^6 /uL (3.70-4.87); Red Cell Distribution Width 15 % (10-15); White Blood Count 9.7 10^3/uL (3.5-10.8)
[2019-09-05 12:55] LABS: ALT 11 U/L (7-52); AST 16 U/L (13-39); Albumin 4.3 g/dL (3.2-5.2); Albumin/Globulin Ratio 1.5 (1-3); Alkaline Phosphatase 84 U/L (34-104); Anion Gap 8 mmol/L (2-11); BUN/Creatinine Ratio 13.1 (8-20); Blood Urea Nitrogen 14 mg/dL (6-24); CO2 Carbon Dioxide 31 mmol/L (22-32); Calcium 9.6 mg/dL (8.6-10.3); Chloride 100 mmol/L (101-111); EGFR African American 61.7 (>60); Globulin 2.9 g/dL (2-4); Glucose 129 mg/dL (70-100); Potassium 3.7 mmol/L (3.5-5.0); Sodium 139 mmol/L (135-145); Total Protein 7.2 g/dL (6.4-8.9)
[2019-09-05 12:57] LABS: Troponin I 0.03 ng/mL (<0.03)
[2019-09-05] MEDS ORDERED: Iodixanol (CONTRAST) 320 MG/ML 100 ML SDV IV ONE (13:33)
[2019-09-05 15:40] LABS: Troponin I 0.04 ng/mL (<0.03)
[2019-09-05 19:15] LABS: Troponin I 0.04 ng/mL (<0.03)
[2019-09-05] MEDS: Enoxaparin 40 MG/0.4 ML SYR SUBCUT SCH (20:19)
[2019-09-05] MEDS: Tiotropium Brom/Olodaterol MDI INH SCH (20:21)
[2019-09-05 22:22] LABS: Troponin I 0.04 ng/mL (<0.03)
[2019-09-06 06:42] LABS: Calcium 9.5 mg/dL (8.6-10.3); Potassium 4.2 mmol/L (3.5-5.0)
[2019-09-06 06:48] LABS: BUN/Creatinine Ratio 14.7 (8-20); EGFR African American 70.8 (>60); EGFR Non-African American 58.5 (>60); HDL Cholesterol 51.2 mg/dL
[2019-09-06] MEDS: Albuterol 2.5mg/3 ml (0.083%) NEB.SOLN INH PRN (11:21)
[2019-09-06] MEDS: Tiotropium Brom/Olodaterol MDI INH SCH (15:55)
[2019-09-06] MEDS: Enoxaparin 40 MG/0.4 ML SYR SUBCUT SCH (17:39)
[2019-09-07 11:52] VITALS: BP 123/68
[2019-09-07] MEDS: Albuterol 2.5mg/3 ml (0.083%) NEB.SOLN INH PRN (12:00)
== END 2019-09-07 13:45 | disposition home or self-care (01) ==
LOC: MEDTELE 11:38 → ED 11:38 → MEDTELE 20:03
PROVIDERS: ADMIT Internal Medicine; ATTEND Internal Medicine

== ENCOUNTER 2020-05-22 13:18 | Inpatient (IN) ==
[2020-05-22] MEDS ORDERED: Albuterol/Ipratropium NEB.SOL (2.5/0.5 MG) 3 ML NEB.SOLN INH ONE ×2 (14:01→17:26)
[2020-05-22 14:26] LABS: Hematocrit 42 % (35-47); Hemoglobin 13.8 g/dL (12.0-16.0); Mean Corpuscular HGB Conc 33 g/dL (31-36); Mean Corpuscular Hemoglobin 28 pg (27-31); Mean Corpuscular Volume 86 fL (80-97); Mean Platelet Volume 7.3 fL (7.4-10.4); Platelet Count 329 10^3/uL (150-450); Red Blood Count 4.95 10^6 /uL (3.70-4.87); Red Cell Distribution Width 15 % (10-15); White Blood Count 12.7 10^3/uL (3.5-10.8)
[2020-05-22 14:30] LABS: ABS Lymphocytes 0.7 10^3/ul (1.0-4.8); ABS Monocytes 0.4 10^3/ul (0-0.8); ABS Neutrophils 11.8 10^3/ul (1.5-7.7); Eosinophil % 0.1 %; Lymphocyte % 5.3 %
[2020-05-22 14:53] LABS: Albumin 4.2 g/dL (3.2-5.2); Albumin/Globulin Ratio 1.5 (1-3); BUN/Creatinine Ratio 17.4 (8-20); Calcium 9.6 mg/dL (8.6-10.3); EGFR African American 60.2 (>60); EGFR Non-African American 49.8 (>60); Globulin 2.8 g/dL (2-4); Potassium 4.1 mmol/L (3.5-5.0); Total Bilirubin 0.7 mg/dL (0.2-1.0)
[2020-05-22] MEDS ORDERED: Iodixanol (CONTRAST) 320 MG/ML 100 ML SDV IV ONE (15:35)
[2020-05-22] MEDS ORDERED: Albuterol 2.5mg/3 ml (0.083%) NEB.SOLN INH PRN (20:17)
[2020-05-22] MEDS ORDERED: ACETAMINOPHEN 500 MG PO PRN (20:17)
[2020-05-22] MEDS ORDERED: Albuterol HFA INHALER 8 gm MDI INH PRN (20:17)
[2020-05-22] MEDS ORDERED: Ipratropium HFA INHALER(NF) (ALTERNATIVE = NEBS) INH SCH (21:00)
[2020-05-22 21:09] LABS: C Reactive Protein 15.38 mg/L (<8.01)
[2020-05-22] MEDS ORDERED: methylPREDNISolone SOD 40 mg/ml 1 ml VIAL IV SCH (22:00)
[2020-05-22] MEDS: Mometasone/Formoter 200/5 MDI INH SCH (22:56)
[2020-05-22 23:11] LABS: Urine Appearance Clear; Urine Bilirubin Negative (Negative); Urine Blood 1+ (Negative); Urine Color Yellow; Urine Glucose Negative (Negative); Urine Ketones Negative (Negative); Urine Nitrite Negative (Negative); Urine Protein Negative (Negative); Urine Specific Gravity 1.036 (1.002-1.030); Urine Urobilinogen Negative (Negative)
[2020-05-22 23:19] LABS: Urine Bacteria Absent (Absent); Urine Red Blood Cell 2+(6-10/hpf) (Absent); Urine Squamous Epithelial Cell Present (Absent); Urine White Blood Cell Trace(0-5/hpf) (Absent)
[2020-05-22] MEDS: Azithromycin 500 mg/250 ml NS 500 MG/250 ML BAG IVPB SCH (23:21)
[2020-05-22] MEDS: Enoxaparin 40 MG/0.4 ML SYR SUBCUT SCH (23:24)
[2020-05-23 05:43] LABS: ABS Basophils 0.1 10^3/ul (0-0.2); ABS Monocytes 0.2 10^3/ul (0-0.8); ABS Neutrophils 11.4 10^3/ul (1.5-7.7); Eosinophil % 0.1 %; Hematocrit 41 % (35-47); Hemoglobin 13.8 g/dL (12.0-16.0); Lymphocyte % 7.6 %; Mean Corpuscular HGB Conc 34 g/dL (31-36); Mean Corpuscular Hemoglobin 28 pg (27-31); Mean Corpuscular Volume 84 fL (80-97); Mean Platelet Volume 7.5 fL (7.4-10.4); Platelet Count 300 10^3/uL (150-450); Red Blood Count 4.87 10^6 /uL (3.70-4.87); Red Cell Distribution Width 15 % (10-15); White Blood Count 12.6 10^3/uL (3.5-10.8)
[2020-05-23] MEDS: Polyethylene Glycol 3350 17 GM PACKET PO SCH (07:44)
[2020-05-23] MEDS: CMC:Rosuvastatin 10 mg TAB (NF) PO SCH (07:44)
[2020-05-23] MEDS: Mometasone/Formoter 200/5 MDI INH SCH (08:25)
[2020-05-23] MEDS: methylPREDNISolone SOD 40 mg/ml 1 ml VIAL IV SCH ×2 (09:03→17:49)
[2020-05-23] MEDS: Albuterol/Ipratropium NEB.SOL (2.5/0.5 MG) 3 ML NEB.SOLN INH SCH ×5 (11:14→23:41)
[2020-05-23 13:42] LABS: Influenza A Molecular Negative (Negative); Influenza B Molecular Negative (Negative)
[2020-05-23] MEDS: Sodium Chloride(INHALANT) 3% 4 ML NEB.SOLN INH SCH ×4 (14:08→23:41)
[2020-05-23] MEDS ORDERED: cefTRIAXone 1 gm/50 mL NS BAG 1 GM/50 ML BAG IVPB SCH (16:30)
[2020-05-23] MEDS: Azithromycin 500 mg/250 ml NS 500 MG/250 ML BAG IVPB SCH (21:45)
[2020-05-23] MEDS: Enoxaparin 40 MG/0.4 ML SYR SUBCUT SCH (21:55)
[2020-05-24] MEDS: methylPREDNISolone SOD 40 mg/ml 1 ml VIAL IV SCH ×2 (01:21→08:39)
[2020-05-24] MEDS: Sodium Chloride(INHALANT) 3% 4 ML NEB.SOLN INH SCH ×5 (03:17→19:51)
[2020-05-24] MEDS: Albuterol/Ipratropium NEB.SOL (2.5/0.5 MG) 3 ML NEB.SOLN INH SCH ×5 (03:17→19:50)
[2020-05-24] MEDS: Polyethylene Glycol 3350 17 GM PACKET PO SCH (08:39)
[2020-05-24] MEDS: CMC:Rosuvastatin 10 mg TAB (NF) PO SCH (08:40)
[2020-05-24] MEDS ORDERED: Dextrose 50% Syringe 50 ml 25 GM/50 ML SYRINGE IV PUSH PRN (14:01)
[2020-05-24] MEDS: Azithromycin 500 mg/250 ml NS 500 MG/250 ML BAG IVPB SCH (21:18)
[2020-05-24] MEDS: Enoxaparin 40 MG/0.4 ML SYR SUBCUT SCH (21:24)
[2020-05-25] MEDS: Sodium Chloride(INHALANT) 3% 4 ML NEB.SOLN INH SCH ×5 (00:42→15:31)
[2020-05-25] MEDS: Albuterol/Ipratropium NEB.SOL (2.5/0.5 MG) 3 ML NEB.SOLN INH SCH ×5 (00:42→15:32)
[2020-05-25] MEDS: Polyethylene Glycol 3350 17 GM PACKET PO SCH (08:35)
[2020-05-25] MEDS: CMC:Rosuvastatin 10 mg TAB (NF) PO SCH (08:36)
[2020-05-25 12:20] VITALS: BP 151/69
== END 2020-05-25 17:00 | disposition home or self-care (01) | DRG 205 ==
LOC: ED 13:18 → MED 21:20
PROVIDERS: ADMIT Internal Medicine; ATTEND Internal Medicine

== ENCOUNTER 2020-12-26 16:50 | Inpatient (IN) ==
[2020-12-26] MEDS ORDERED: Dexamethasone IV 4 MG/ML VIAL 1 ml VIAL IV SLOW PU ONE (22:11)
[2020-12-26 22:39] LABS: Hematocrit 41 % (35-47); Hemoglobin 13.6 g/dL (12.0-16.0); Mean Corpuscular HGB Conc 34 g/dL (31-36); Mean Corpuscular Hemoglobin 29 pg (27-31); Mean Corpuscular Volume 85 fL (80-97); Mean Platelet Volume 7.5 fL (7.4-10.4); Platelet Count 314 10^3/uL (150-450); Red Blood Count 4.77 10^6 /uL (3.70-4.87); Red Cell Distribution Width 14 % (10-15); White Blood Count 11.4 10^3/uL (3.5-10.8)
[2020-12-26 22:59] LABS: Rapid COVID-19 Molecular Undetected (Undetected)
[2020-12-26 23:01] LABS: Albumin 4.2 g/dL (3.2-5.2); Albumin/Globulin Ratio 1.2 (1-3); Calcium 9.7 mg/dL (8.6-10.3); Globulin 3.4 g/dL (2-4); Potassium 3.5 mmol/L (3.5-5.0); Total Bilirubin 0.7 mg/dL (0.2-1.0); Total Protein 7.6 g/dL (6.4-8.9)
[2020-12-26] MEDS ORDERED: Piperacillin/Tazobac ADVAN 3.375 GM in NS 0.9% 100 ml BAG 100 ML IV ONE (23:23)
[2020-12-26 23:27] LABS: ABS Basophils 0.1 10^3/ul (0-0.2); ABS Lymphocytes 1.5 10^3/ul (1.0-4.8); ABS Monocytes 0.6 10^3/ul (0-0.8); ABS Neutrophils 9.2 10^3/ul (1.5-7.7); Eosinophil % 0.2 %; Lymphocyte % 13.2 %
[2020-12-26 23:57] LABS: C Reactive Protein 13.87 mg/L (<8.01)
[2020-12-27] MEDS ORDERED: Azithromycin 500 mg/250 ml NS 500 MG/250 ML BAG IVPB ONE (00:36)
[2020-12-27] MEDS ORDERED: Albuterol 2.5mg/3 ml (0.083%) NEB.SOLN INH PRN (00:37)
[2020-12-27] MEDS ORDERED: Potassium Chlor 20 meq TAB.ER PO ONE (00:55)
[2020-12-27 01:28] LABS: Magnesium 1.9 mg/dL (1.9-2.7); Phosphorus 2.9 mg/dL (2.5-5.0)
[2020-12-27] MEDS ORDERED: Magnesium Sulfate IV 1GM/100ML 1 GM/100 ML BAG IV ONE (02:36)
[2020-12-27] MEDS: Albuterol HFA INHALER 8 gm MDI INH SCH ×6 (05:20→23:26)
[2020-12-27] MEDS: Heparin 5000 UNITS/ML 1 mL VIAL SUBCUT SCH ×3 (05:37→21:24)
[2020-12-27] MEDS: methylPREDNISolone SOD 40 mg/ml 1 ml VIAL IV SCH ×2 (05:38→17:09)
[2020-12-27 05:49] LABS: ABS Basophils 0.1 10^3/ul (0-0.2); ABS Monocytes 0.2 10^3/ul (0-0.8); ABS Neutrophils 10.7 10^3/ul (1.5-7.7); Eosinophil % 0.1 %; Hematocrit 37 % (35-47); Hemoglobin 12.5 g/dL (12.0-16.0); Lymphocyte % 8.5 %; Mean Corpuscular HGB Conc 34 g/dL (31-36); Mean Corpuscular Hemoglobin 29 pg (27-31); Mean Corpuscular Volume 86 fL (80-97); Mean Platelet Volume 7.7 fL (7.4-10.4); Platelet Count 281 10^3/uL (150-450); Red Blood Count 4.31 10^6 /uL (3.70-4.87); Red Cell Distribution Width 14 % (10-15)
[2020-12-27] MEDS ORDERED: cefTRIAXone 1 gm/50 mL NS BAG 1 GM/50 ML BAG IVPB SCH (06:00)
[2020-12-27 06:07] LABS: Albumin 3.5 g/dL (3.2-5.2); Calcium 9.2 mg/dL (8.6-10.3); Magnesium 2.3 mg/dL (1.9-2.7); Potassium 4.5 mmol/L (3.5-5.0); Total Bilirubin 0.6 mg/dL (0.2-1.0)
[2020-12-27 06:13] LABS: Albumin/Globulin Ratio 1.2 (1-3); Globulin 2.9 g/dL (2-4); Phosphorus 3.2 mg/dL (2.5-5.0); Total Protein 6.4 g/dL (6.4-8.9)
[2020-12-27] MEDS ORDERED: Lactated Ringers 1000 ml BAG 500 ML IV SCH ×2 (07:00)
[2020-12-27] MEDS: Polyethylene Glycol 3350 17 GM PACKET PO SCH (08:00)
[2020-12-27] MEDS: Nystatin SUSPENSION 100,000 UNITS/ML UDC PO SCH ×4 (08:00→21:23)
[2020-12-27] MEDS: Budesonide NEB 0.5 MG/2 ML NEB.SOLN INH SCH ×2 (08:13→20:06)
[2020-12-27] MEDS: CMCS: FLUTICAS/UMECLI/VILANT 100-62.5-25 MDI (NF) INH SCH (08:13)
[2020-12-27] MEDS ORDERED: methylPREDNISolone SOD 40 mg/ml 1 ml VIAL IV SCH (09:00)
[2020-12-27] MEDS ORDERED: Benzocaine/Butamben/Tetracain (CETACAINE - SINGLE USE) 5 gm TOPICAL ONE (10:41)
[2020-12-27] MEDS ORDERED: Acetylcysteine ORAL SOL 200 mg/ml 30 ml VIAL ONE (10:45)
[2020-12-27] MEDS ORDERED: fentaNYL 250 mcg/5 ml 50 MCG/ML 5 ml VIAL (250 MCG) ONE (10:50)
[2020-12-27] MEDS ORDERED: Midazolam 5 mg/5 ml VIAL 1 mg/ml 5 ml VIAL (5 mg) ONE ×2 (10:50→11:29)
[2020-12-27] MEDS ORDERED: Naloxone 0.4 mg VIAL 0.4 mg/ml 1 ml VIAL ONE (10:51)
[2020-12-27] MEDS ORDERED: Flumazenil 0.5 mg/5 ml 0.1 MG/ML 5 ml VIAL ONE (10:52)
[2020-12-27] MEDS: Cefepime 1 GM in Dextrose 1 GM/50 ML BAG IV SCH ×2 (11:03→21:23)
[2020-12-27] MEDS ORDERED: Midazolam 2 mg/2 ml VIAL 1 mg/ml 2 ml VIAL (2 mg) IV SLOW PU ONE (12:31)
[2020-12-27] MEDS ORDERED: fentaNYL 100 mcg/2 ml 50 MCG/ML VIAL IV SLOW PU ONE (12:32)
[2020-12-28] MEDS: Albuterol/Ipratropium NEB.SOL (2.5/0.5 MG) 3 ML NEB.SOLN INH PRN (03:04)
[2020-12-28] MEDS: Albuterol HFA INHALER 8 gm MDI INH SCH ×6 (03:12→23:10)
[2020-12-28] MEDS: Budesonide NEB 0.5 MG/2 ML NEB.SOLN INH SCH ×2 (07:28→19:29)
[2020-12-28] MEDS: CMCS: FLUTICAS/UMECLI/VILANT 100-62.5-25 MDI (NF) INH SCH (07:29)
[2020-12-28] MEDS: methylPREDNISolone SOD 40 mg/ml 1 ml VIAL IV SCH ×2 (07:34→17:00)
[2020-12-28] MEDS: Heparin 5000 UNITS/ML 1 mL VIAL SUBCUT SCH ×3 (07:34→21:17)
[2020-12-28] MEDS: Nystatin SUSPENSION 100,000 UNITS/ML UDC PO SCH ×4 (08:29→20:59)
[2020-12-28] MEDS: Cefepime 1 GM in Dextrose 1 GM/50 ML BAG IV SCH (08:31)
[2020-12-28] MEDS: Polyethylene Glycol 3350 17 GM PACKET PO SCH (08:31)
[2020-12-28] MEDS ORDERED: Furosemide 40 mg/4 ml IV VIAL IV SLOW PU ONE (10:04)
[2020-12-28] MEDS: Levofloxacin 750 MG IVPREMIX 750 MG/150 ML BAG IVPB SCH (17:34)
[2020-12-29] MEDS: Albuterol HFA INHALER 8 gm MDI INH SCH ×5 (03:48→21:02)
[2020-12-29] MEDS: Heparin 5000 UNITS/ML 1 mL VIAL SUBCUT SCH ×3 (05:35→21:01)
[2020-12-29] MEDS: methylPREDNISolone SOD 40 mg/ml 1 ml VIAL IV SCH ×2 (05:36→18:33)
[2020-12-29] MEDS: Budesonide NEB 0.5 MG/2 ML NEB.SOLN INH SCH ×2 (07:05→19:59)
[2020-12-29] MEDS: CMCS: FLUTICAS/UMECLI/VILANT 100-62.5-25 MDI (NF) INH SCH (07:06)
[2020-12-29] MEDS ORDERED: Furosemide 20 mg/2 ml IV VIAL IV SLOW PU ONE (08:00)
[2020-12-29] MEDS: Polyethylene Glycol 3350 17 GM PACKET PO SCH (09:50)
[2020-12-29] MEDS: Nystatin SUSPENSION 100,000 UNITS/ML UDC PO SCH ×4 (09:50→21:01)
[2020-12-29] MEDS: Levofloxacin 750 MG IVPREMIX 750 MG/150 ML BAG IVPB SCH (15:39)
[2020-12-29] MEDS ORDERED: Dextrose 50% Syringe 50 ml 25 GM/50 ML SYRINGE IV PUSH PRN (16:31)
[2020-12-29 16:50] LABS: ABS Basophils 0.1 10^3/ul (0-0.2); ABS Monocytes 1.3 10^3/ul (0-0.8); ABS Neutrophils 10.9 10^3/ul (1.5-7.7); Hematocrit 40 % (35-47); Hemoglobin 13.6 g/dL (12.0-16.0); Lymphocyte % 7.4 %; Mean Corpuscular HGB Conc 34 g/dL (31-36); Mean Corpuscular Hemoglobin 29 pg (27-31); Mean Corpuscular Volume 85 fL (80-97); Mean Platelet Volume 6.9 fL (7.4-10.4); Platelet Count 336 10^3/uL (150-450); Red Blood Count 4.73 10^6 /uL (3.70-4.87); Red Cell Distribution Width 14 % (10-15); White Blood Count 13.2 10^3/uL (3.5-10.8)
[2020-12-29 17:06] LABS: Calcium 9.9 mg/dL (8.6-10.3); Potassium 4.1 mmol/L (3.5-5.0)
[2020-12-29] MEDS: Sodium Chloride(INHALANT) 3% 4 ML NEB.SOLN INH SCH (20:00)
[2020-12-30] MEDS: Albuterol HFA INHALER 8 gm MDI INH SCH ×4 (01:59→20:38)
[2020-12-30] MEDS: Heparin 5000 UNITS/ML 1 mL VIAL SUBCUT SCH ×3 (05:45→22:41)
[2020-12-30] MEDS: Sodium Chloride(INHALANT) 3% 4 ML NEB.SOLN INH SCH ×4 (06:50→20:14)
[2020-12-30] MEDS: Budesonide NEB 0.5 MG/2 ML NEB.SOLN INH SCH ×2 (06:51→20:13)
[2020-12-30] MEDS: Albuterol/Ipratropium NEB.SOL (2.5/0.5 MG) 3 ML NEB.SOLN INH PRN (06:51)
[2020-12-30 07:45] LABS: ABS Lymphocytes 1.4 10^3/ul (1.0-4.8); ABS Monocytes 0.8 10^3/ul (0-0.8); ABS Neutrophils 9.4 10^3/ul (1.5-7.7); Hematocrit 40 % (35-47); Hemoglobin 13.2 g/dL (12.0-16.0); Lymphocyte % 12.1 %; Mean Corpuscular HGB Conc 33 g/dL (31-36); Mean Corpuscular Hemoglobin 28 pg (27-31); Mean Corpuscular Volume 86 fL (80-97); Mean Platelet Volume 7.3 fL (7.4-10.4); Platelet Count 296 10^3/uL (150-450); Red Blood Count 4.65 10^6 /uL (3.70-4.87); Red Cell Distribution Width 14 % (10-15); White Blood Count 11.6 10^3/uL (3.5-10.8)
[2020-12-30] MEDS: CMCS: FLUTICAS/UMECLI/VILANT 100-62.5-25 MDI (NF) INH SCH (07:58)
[2020-12-30 08:06] LABS: Calcium 9.7 mg/dL (8.6-10.3); Potassium 4.2 mmol/L (3.5-5.0)
[2020-12-30] MEDS: Nystatin SUSPENSION 100,000 UNITS/ML UDC PO SCH ×4 (09:51→22:39)
[2020-12-30] MEDS: Polyethylene Glycol 3350 17 GM PACKET PO SCH (09:52)
[2020-12-30] MEDS ORDERED: cefTRIAXone 1 gm/50 mL NS BAG 1 GM/50 ML BAG IVPB SCH (13:00)
[2020-12-30 16:06] LABS: Immunoglobulin A 132 mg/dL (61 - 356); Immunoglobulin G 1040 mg/dL (767 - 1590); Immunoglobulin M 73 mg/dL (37 - 286)
[2020-12-30] MEDS: Levofloxacin 750 MG IVPREMIX 750 MG/150 ML BAG IVPB SCH (17:27)
[2020-12-31] MEDS: Albuterol HFA INHALER 8 gm MDI INH SCH ×4 (01:04→20:31)
[2020-12-31] MEDS: Heparin 5000 UNITS/ML 1 mL VIAL SUBCUT SCH ×3 (05:50→20:14)
[2020-12-31] MEDS: Budesonide NEB 0.5 MG/2 ML NEB.SOLN INH SCH ×2 (07:49→20:31)
[2020-12-31] MEDS: Nystatin SUSPENSION 100,000 UNITS/ML UDC PO SCH ×4 (08:31→20:17)
[2020-12-31] MEDS: CMCS: FLUTICAS/UMECLI/VILANT 100-62.5-25 MDI (NF) INH SCH ×2 (08:32→11:30)
[2020-12-31] MEDS: Sodium Chloride(INHALANT) 3% 4 ML NEB.SOLN INH SCH ×4 (08:49→20:31)
[2020-12-31] MEDS: Polyethylene Glycol 3350 17 GM PACKET PO SCH (09:59)
[2020-12-31] MEDS: Levofloxacin 750 MG IVPREMIX 750 MG/150 ML BAG IVPB SCH (20:15)
[2021-01-01] MEDS: Albuterol/Ipratropium NEB.SOL (2.5/0.5 MG) 3 ML NEB.SOLN INH PRN (00:17)
[2021-01-01] MEDS: Albuterol HFA INHALER 8 gm MDI INH SCH ×4 (00:20→19:53)
[2021-01-01] MEDS: Heparin 5000 UNITS/ML 1 mL VIAL SUBCUT SCH ×3 (05:17→20:01)
[2021-01-01 06:30] LABS: ABS Eosinophils 0.1 10^3/ul (0-0.6); ABS Lymphocytes 1.9 10^3/ul (1.0-4.8); ABS Monocytes 1.2 10^3/ul (0-0.8); ABS Neutrophils 7.6 10^3/ul (1.5-7.7); Eosinophil % 0.7 %; Hematocrit 36 % (35-47); Hemoglobin 12.1 g/dL (12.0-16.0); Lymphocyte % 17.7 %; Mean Corpuscular HGB Conc 34 g/dL (31-36); Mean Corpuscular Hemoglobin 29 pg (27-31); Mean Corpuscular Volume 85 fL (80-97); Mean Platelet Volume 7.2 fL (7.4-10.4); Platelet Count 253 10^3/uL (150-450); Red Cell Distribution Width 14 % (10-15); White Blood Count 10.7 10^3/uL (3.5-10.8)
[2021-01-01 06:58] LABS: Calcium 8.9 mg/dL (8.6-10.3); Potassium 3.8 mmol/L (3.5-5.0)
[2021-01-01] MEDS: Budesonide NEB 0.5 MG/2 ML NEB.SOLN INH SCH ×2 (07:20→19:51)
[2021-01-01] MEDS: Sodium Chloride(INHALANT) 3% 4 ML NEB.SOLN INH SCH ×4 (07:20→19:52)
[2021-01-01] MEDS: CMCS: FLUTICAS/UMECLI/VILANT 100-62.5-25 MDI (NF) INH SCH (07:21)
[2021-01-01] MEDS: Nystatin SUSPENSION 100,000 UNITS/ML UDC PO SCH ×4 (08:44→19:50)
[2021-01-01] MEDS: Polyethylene Glycol 3350 17 GM PACKET PO SCH (09:10)
[2021-01-01 14:42] LABS: Aspergillus fumigatus IgG Ab 64.8 mg/L (<=102); Micropolyspora faeni IgG Ab <2.0 mg/L (<=13.2); Thermoactinomyces vulgaris IgG 9.4 mg/L (<=23.9)
[2021-01-01] MEDS: Levofloxacin 750 MG IVPREMIX 750 MG/150 ML BAG IVPB SCH (19:51)
[2021-01-02] MEDS: Albuterol HFA INHALER 8 gm MDI INH SCH ×4 (01:02→13:09)
[2021-01-02] MEDS: Heparin 5000 UNITS/ML 1 mL VIAL SUBCUT SCH (05:45)
[2021-01-02] MEDS: Sodium Chloride(INHALANT) 3% 4 ML NEB.SOLN INH SCH ×2 (07:09→11:03)
[2021-01-02] MEDS: Budesonide NEB 0.5 MG/2 ML NEB.SOLN INH SCH (07:09)
[2021-01-02] MEDS: CMCS: FLUTICAS/UMECLI/VILANT 100-62.5-25 MDI (NF) INH SCH (07:28)
[2021-01-02] MEDS: Nystatin SUSPENSION 100,000 UNITS/ML UDC PO SCH ×2 (09:17→12:16)
[2021-01-02] MEDS: Polyethylene Glycol 3350 17 GM PACKET PO SCH (09:45)
[2021-01-02 11:47] VITALS: BP 134/67
== END 2021-01-02 14:15 | disposition home or self-care (01) | DRG 166 ==
LOC: ED 16:50 → ICU 12-27 00:33 → SUATTDRO 12-27 00:33 → ICU 12-27 01:55 → MED 12-29 16:30
PROVIDERS: ADMIT Internal Medicine; ATTEND Internal Medicine

== ENCOUNTER 2021-05-08 17:55 | Inpatient (IN) ==
[2021-05-08 19:10] LABS: ABS Basophils 0.1 10^3/ul (0-0.2); ABS Eosinophils 0.1 10^3/ul (0-0.6); ABS Lymphocytes 2.9 10^3/ul (1.0-4.8); ABS Monocytes 0.7 10^3/ul (0-0.8); ABS Neutrophils 7.1 10^3/ul (1.5-7.7); Eosinophil % 1.3 %; Hematocrit 37 % (35-47); Hemoglobin 12.7 g/dL (12.0-16.0); Lymphocyte % 26.5 %; Mean Corpuscular HGB Conc 35 g/dL (31-36); Mean Corpuscular Hemoglobin 30 pg (27-31); Mean Corpuscular Volume 86 fL (80-97); Mean Platelet Volume 7.5 fL (7.4-10.4); Platelet Count 264 10^3/uL (150-450); Red Blood Count 4.29 10^6 /uL (3.70-4.87); Red Cell Distribution Width 15 % (10-15); White Blood Count 10.9 10^3/uL (3.5-10.8)
[2021-05-08] MEDS ORDERED: Albuterol HFA INHALER 8 gm MDI INH ONE (19:11)
[2021-05-08 19:19] LABS: Activated Partial Thrombo Time 28.6 seconds (26.0-38.0); INR 0.96 (0.86-1.15)
[2021-05-08] MEDS ORDERED: Dexamethasone IV 4 MG/ML VIAL 1 ml VIAL IV SLOW PU ONE (19:20)
[2021-05-08 19:58] LABS: Albumin 4.4 g/dL (3.2-5.2); Albumin/Globulin Ratio 1.8 (1-3); C Reactive Protein 3.48 mg/L (<8.01); Calcium 9.8 mg/dL (8.6-10.3); Globulin 2.4 g/dL (2-4); Potassium 3.2 mmol/L (3.5-5.0); Total Bilirubin 0.7 mg/dL (0.2-1.0); Total Protein 6.8 g/dL (6.4-8.9); eGFR CKD-EPI 48.7 (>60)
[2021-05-08] MEDS ORDERED: Iodixanol (CONTRAST) 320 MG/ML 100 ML SDV IV ONE (21:10)
[2021-05-08 21:24] LABS: High Sensitivity Troponin 1 Hr 6 pg/mL (<15)
[2021-05-08] MEDS ORDERED: cefTRIAXone 1 gm/50 mL NS BAG 1 GM/50 ML BAG IV ONE (23:10)
[2021-05-08] MEDS ORDERED: Azithromycin 500 mg/250 ml NS 500 MG/250 ML BAG IVPB ONE (23:10)
[2021-05-09] MEDS ORDERED: Budesonide NEB 0.5 MG/2 ML NEB.SOLN INH PRN (01:06)
[2021-05-09] MEDS ORDERED: Ondansetron 4 mg VIAL 2 MG/ML 2 ml VIAL IV PRN (01:09)
[2021-05-09 04:40] LABS: ABS Basophils 0.1 10^3/ul (0-0.2); ABS Lymphocytes 0.8 10^3/ul (1.0-4.8); ABS Monocytes 0.1 10^3/ul (0-0.8); ABS Neutrophils 6.7 10^3/ul (1.5-7.7); Eosinophil % 0.1 %; Hematocrit 36 % (35-47); Hemoglobin 12.1 g/dL (12.0-16.0); Lymphocyte % 10.8 %; Mean Corpuscular HGB Conc 34 g/dL (31-36); Mean Corpuscular Hemoglobin 30 pg (27-31); Mean Corpuscular Volume 87 fL (80-97); Mean Platelet Volume 7.8 fL (7.4-10.4); Platelet Count 249 10^3/uL (150-450); Red Blood Count 4.07 10^6 /uL (3.70-4.87); Red Cell Distribution Width 15 % (10-15); White Blood Count 7.8 10^3/uL (3.5-10.8)
[2021-05-09 05:02] LABS: Calcium 9.3 mg/dL (8.6-10.3); Potassium 3.9 mmol/L (3.5-5.0)
[2021-05-09 05:08] LABS: eGFR CKD-EPI 41.2 (>60)
[2021-05-09] MEDS: FLUTICAS/UMECLI/VILANT 100-62.5-25 MDI (NF) INH SCH ×2 (07:24→08:18)
[2021-05-09] MEDS ORDERED: Albuterol 2.5mg/3 ml (0.083%) NEB.SOLN INH ONE (07:59)
[2021-05-09] MEDS: methylPREDNISolone SOD 40 mg/ml 1 ml VIAL IV SCH (08:37)
[2021-05-09] MEDS ORDERED: Phenylephrine 40 mcg/mL 10mL (400mcg) SYRINGE ONE (12:43)
[2021-05-09] MEDS ORDERED: Propofol 10 MG/ML 20 ML BTL ONE (12:44)
[2021-05-09] MEDS ORDERED: Rocuronium 50 mg VIAL 10 mg/ml 5 ml VIAL (50 mg) ONE (12:46)
[2021-05-09] MEDS ORDERED: fentaNYL 100 mcg/2 ml 50 MCG/ML VIAL ONE (12:47)
[2021-05-09] MEDS ORDERED: Dexamethasone IV 4 MG/ML VIAL 1 ml VIAL ONE (13:51)
[2021-05-09] MEDS: Cefepime 2 GM in Dextrose 2 GM/50 ML BAG IV SCH (18:40)
[2021-05-09] MEDS: Albuterol HFA INHALER 8 gm MDI INH PRN (20:45)
[2021-05-10] MEDS: Albuterol HFA INHALER 8 gm MDI INH PRN ×2 (04:05→21:13)
[2021-05-10] MEDS: Cefepime 2 GM in Dextrose 2 GM/50 ML BAG IV SCH ×2 (05:33→17:49)
[2021-05-10 06:46] LABS: ABS Lymphocytes 1.1 10^3/ul (1.0-4.8); ABS Monocytes 1.1 10^3/ul (0-0.8); ABS Neutrophils 12.4 10^3/ul (1.5-7.7); Hematocrit 33 % (35-47); Hemoglobin 11.3 g/dL (12.0-16.0); Lymphocyte % 7.6 %; Mean Corpuscular HGB Conc 34 g/dL (31-36); Mean Corpuscular Hemoglobin 30 pg (27-31); Mean Corpuscular Volume 86 fL (80-97); Platelet Count 260 10^3/uL (150-450); Red Blood Count 3.83 10^6 /uL (3.70-4.87); Red Cell Distribution Width 15 % (10-15); White Blood Count 14.7 10^3/uL (3.5-10.8)
[2021-05-10 07:14] LABS: Albumin 3.7 g/dL (3.2-5.2); Albumin/Globulin Ratio 1.6 (1-3); Calcium 9.5 mg/dL (8.6-10.3); Globulin 2.3 g/dL (2-4); Magnesium 2.1 mg/dL (1.9-2.7); Potassium 3.8 mmol/L (3.5-5.0); Total Bilirubin 0.5 mg/dL (0.2-1.0); eGFR CKD-EPI 50.7 (>60)
[2021-05-10] MEDS: FLUTICAS/UMECLI/VILANT 100-62.5-25 MDI (NF) INH SCH (07:15)
[2021-05-10] MEDS: methylPREDNISolone SOD 40 mg/ml 1 ml VIAL IV SCH (07:42)
[2021-05-10] MEDS: Enoxaparin 40 MG/0.4 ML SYR SUBCUT SCH (21:07)
[2021-05-11] MEDS: Cefepime 2 GM in Dextrose 2 GM/50 ML BAG IV SCH ×2 (06:42→18:06)
[2021-05-11] MEDS ORDERED: Furosemide 20 mg/2 ml IV VIAL IV ONE (08:00)
[2021-05-11] MEDS: FLUTICAS/UMECLI/VILANT 100-62.5-25 MDI (NF) INH SCH (08:28)
[2021-05-11 08:52] LABS: ABS Lymphocytes 1.6 10^3/ul (1.0-4.8); ABS Neutrophils 8.3 10^3/ul (1.5-7.7); Eosinophil % 0.2 %; Hematocrit 33 % (35-47); Hemoglobin 11.2 g/dL (12.0-16.0); Lymphocyte % 14.6 %; Mean Corpuscular HGB Conc 34 g/dL (31-36); Mean Corpuscular Hemoglobin 29 pg (27-31); Mean Corpuscular Volume 86 fL (80-97); Mean Platelet Volume 7.6 fL (7.4-10.4); Nucleated Red Blood Cells % 0.1; Platelet Count 257 10^3/uL (150-450); Red Blood Count 3.79 10^6 /uL (3.70-4.87); Red Cell Distribution Width 15 % (10-15); White Blood Count 10.9 10^3/uL (3.5-10.8)
[2021-05-11 09:11] LABS: Calcium 9.4 mg/dL (8.6-10.3); Magnesium 2.2 mg/dL (1.9-2.7); Potassium 3.9 mmol/L (3.5-5.0); eGFR CKD-EPI 56.5 (>60)
[2021-05-11] MEDS: Enoxaparin 40 MG/0.4 ML SYR SUBCUT SCH (20:10)
[2021-05-12] MEDS: Cefepime 2 GM in Dextrose 2 GM/50 ML BAG IV SCH (05:39)
[2021-05-12] MEDS: FLUTICAS/UMECLI/VILANT 100-62.5-25 MDI (NF) INH SCH (07:57)
[2021-05-12] MEDS ORDERED: Flu vaccine *QUAD* 2021-22* 0.5 ML SYRINGE IM ONE (09:00)
[2021-05-12 11:40] VITALS: BP 137/67
== END 2021-05-12 12:40 | disposition home or self-care (01) | DRG 205 ==
LOC: ED 17:55 → ICU 05-09 01:09 → SUATTDRO 05-09 01:09 → ICU 05-09 01:51 → MED 05-09 20:05
PROVIDERS: ADMIT Internal Medicine; ATTEND Internal Medicine

== ENCOUNTER 2021-07-18 10:35 | Inpatient (IN) ==
[2021-07-18 11:36] LABS: ABS Eosinophils 0.4 10^3/ul (0-0.6); ABS Lymphocytes 1.2 10^3/ul (1.0-4.8); ABS Monocytes 0.7 10^3/ul (0-0.8); ABS Neutrophils 6.9 10^3/ul (1.5-7.7); Eosinophil % 4.2 %; Hematocrit 36 % (35-47); Hemoglobin 11.7 g/dL (12.0-16.0); Lymphocyte % 12.9 %; Mean Corpuscular HGB Conc 33 g/dL (31-36); Mean Corpuscular Hemoglobin 28 pg (27-31); Mean Corpuscular Volume 84 fL (80-97); Mean Platelet Volume 7.5 fL (7.4-10.4); Platelet Count 271 10^3/uL (150-450); Red Blood Count 4.24 10^6 /uL (3.70-4.87); Red Cell Distribution Width 15 % (10-15); White Blood Count 9.2 10^3/uL (3.5-10.8)
[2021-07-18 11:59] LABS: Albumin 4.1 g/dL (3.2-5.2); Albumin/Globulin Ratio 1.6 (1-3); Calcium 9.5 mg/dL (8.6-10.3); Globulin 2.6 g/dL (2-4); Potassium 3.8 mmol/L (3.5-5.0); Total Bilirubin 0.6 mg/dL (0.2-1.0); Total Protein 6.7 g/dL (6.4-8.9); eGFR CKD-EPI 32.1 (>60)
[2021-07-18 15:04] LABS: High Sensitivity Troponin 1 Hr 5 pg/mL (<15)
[2021-07-18 18:00] LABS: C Reactive Protein 1.55 mg/L (<8.01)
[2021-07-18] MEDS ORDERED: NS 0.9% 1000 ml BAG 1,000 ML IV ONE (20:24)
[2021-07-18] MEDS ORDERED: Iohexol 350 (CONTRAST) 500 ML MDV IV ONE (21:09)
[2021-07-18] MEDS: Enoxaparin 40 MG/0.4 ML SYR SUBCUT SCH (21:21)
[2021-07-18] MEDS ORDERED: Fluticasone NASAL SPRAY 50MCG 16 gm SPRAY BTL INTRANASAL PRN (21:29)
[2021-07-19] MEDS: Sulfamethox/Trimethoprim DS TAB 800/160 mg PO SCH ×3 (01:10→20:09)
[2021-07-19 05:37] LABS: ABS Basophils 0.1 10^3/ul (0-0.2); ABS Eosinophils 0.3 10^3/ul (0-0.6); ABS Lymphocytes 2.3 10^3/ul (1.0-4.8); ABS Monocytes 0.8 10^3/ul (0-0.8); ABS Neutrophils 4.9 10^3/ul (1.5-7.7); Hematocrit 35 % (35-47); Hemoglobin 11.7 g/dL (12.0-16.0); Lymphocyte % 27.6 %; Mean Corpuscular HGB Conc 34 g/dL (31-36); Mean Corpuscular Hemoglobin 29 pg (27-31); Mean Corpuscular Volume 85 fL (80-97); Mean Platelet Volume 7.5 fL (7.4-10.4); Platelet Count 252 10^3/uL (150-450); Red Blood Count 4.09 10^6 /uL (3.70-4.87); Red Cell Distribution Width 15 % (10-15); White Blood Count 8.5 10^3/uL (3.5-10.8)
[2021-07-19 05:53] LABS: Calcium 9.4 mg/dL (8.6-10.3); Potassium 3.5 mmol/L (3.5-5.0)
[2021-07-19 05:58] LABS: eGFR CKD-EPI 31.8 (>60)
[2021-07-19] MEDS: FLUTICAS/UMECLI/VILANT 100-62.5-25 MDI (NF) INH SCH ×3 (08:45→10:32)
[2021-07-19] MEDS: Enoxaparin 40 MG/0.4 ML SYR SUBCUT SCH (20:10)
[2021-07-19] MEDS: Albuterol/Ipratropium NEB.SOL (2.5/0.5 MG) 3 ML NEB.SOLN INH PRN (22:37)
[2021-07-20] MEDS: FLUTICAS/UMECLI/VILANT 100-62.5-25 MDI (NF) INH SCH (07:32)
[2021-07-20] MEDS: Sulfamethox/Trimethoprim DS TAB 800/160 mg PO SCH ×2 (09:01→21:16)
[2021-07-20] MEDS: Albuterol/Ipratropium NEB.SOL (2.5/0.5 MG) 3 ML NEB.SOLN INH PRN (12:42)
[2021-07-20] MEDS: Enoxaparin 40 MG/0.4 ML SYR SUBCUT SCH (21:15)
[2021-07-21 07:09] LABS: Calcium 9.1 mg/dL (8.6-10.3); Potassium 4.1 mmol/L (3.5-5.0); eGFR CKD-EPI 36.4 (>60)
[2021-07-21] MEDS: FLUTICAS/UMECLI/VILANT 100-62.5-25 MDI (NF) INH SCH (07:13)
[2021-07-21] MEDS: Sulfamethox/Trimethoprim DS TAB 800/160 mg PO SCH ×2 (09:48→21:08)
[2021-07-21 13:54] LABS: Adenovirus Undetected (Undetected); Bordetella parapertussis Undetected (Undetected); Bordetella pertussis Undetected (Undetected); Chlamydophila pneumoniae Undetected (Undetected); Coronavirus 229E Undetected (Undetected); Coronavirus HKU1 Undetected (Undetected); Coronavirus NL63 Undetected (Undetected); Coronavirus OC43 Undetected (Undetected); Human Metapneumovirus Undetected (Undetected); Human Rhinovirus/Enterovirus Undetected (Undetected); Influenza A Undetected (Undetected); Influenza B Undetected (Undetected); Mycoplasmoides pneumoniae Undetected (Undetected); Parainfluenza Virus 1 Undetected (Undetected); Parainfluenza Virus 2 Undetected (Undetected); Parainfluenza Virus 3 Undetected (Undetected); Parainfluenza Virus 4 Undetected (Undetected); Respiratory Syncytial Virus Undetected (Undetected); Specimen Source NASOPHARYNGEAL SWAB
[2021-07-21] MEDS: Albuterol/Ipratropium NEB.SOL (2.5/0.5 MG) 3 ML NEB.SOLN INH PRN (19:29)
[2021-07-21] MEDS: Enoxaparin 40 MG/0.4 ML SYR SUBCUT SCH (21:08)
[2021-07-22 06:36] LABS: Hematocrit 33 % (35-47); Hemoglobin 11.1 g/dL (12.0-16.0); Mean Corpuscular HGB Conc 34 g/dL (31-36); Mean Corpuscular Hemoglobin 29 pg (27-31); Mean Corpuscular Volume 85 fL (80-97); Mean Platelet Volume 7.7 fL (7.4-10.4); Platelet Count 228 10^3/uL (150-450); Red Blood Count 3.87 10^6 /uL (3.70-4.87); Red Cell Distribution Width 15 % (10-15)
[2021-07-22 06:51] LABS: Calcium 9.3 mg/dL (8.6-10.3); Potassium 4.7 mmol/L (3.5-5.0); eGFR CKD-EPI 40.5 (>60)
[2021-07-22] MEDS: FLUTICAS/UMECLI/VILANT 100-62.5-25 MDI (NF) INH SCH (07:16)
[2021-07-22] MEDS: Sulfamethox/Trimethoprim DS TAB 800/160 mg PO SCH ×2 (09:32→20:01)
[2021-07-22] MEDS: Enoxaparin 40 MG/0.4 ML SYR SUBCUT SCH (20:21)
[2021-07-22] MEDS: Albuterol/Ipratropium NEB.SOL (2.5/0.5 MG) 3 ML NEB.SOLN INH PRN (20:38)
[2021-07-23] MEDS: FLUTICAS/UMECLI/VILANT 100-62.5-25 MDI (NF) INH SCH (08:30)
[2021-07-23] MEDS: Sulfamethox/Trimethoprim DS TAB 800/160 mg PO SCH (08:53)
[2021-07-23 11:59] VITALS: BP 115/55
== END 2021-07-23 16:35 | disposition home or self-care (01) | DRG 189 ==
LOC: ED 10:35 → EDHOLD 10:35 → SUATTDRO 19:06 → MEDTELE 22:51 → SUATTDRO 07-20 09:40
PROVIDERS: ADMIT Student in an Organized Health Care Education/Training Program; ATTEND Internal Medicine

== ENCOUNTER 2022-08-17 04:31 | Inpatient (IN) ==
[2022-08-17] MEDS ORDERED: ceFAZolin 1 GM ADVAN 1 GM in NS 0.9% 50 ML 50 ML IVPB ONE (05:05)
[2022-08-17 05:30] LABS: ABS Basophils 0.1 10^3/uL (0.0-0.1); ABS Eosinophils 0.3 10^3/uL (0.0-0.5); ABS Lymphocytes 1.6 10^3/uL (1.0-4.8); ABS Monocytes 0.9 10^3/uL (0.0-0.9); ABS Neutrophils 9.5 10^3/uL (1.5-7.6); Eosinophil % 2.7 %; Hematocrit 32.5 % (35-45); Hemoglobin 10.7 g/dL (11.5-14.3); Lymphocyte % 12.8 %; Mean Corpuscular Hemoglobin 27.3 pg (27-33); Mean Corpuscular Volume 82.6 fL (80-97); Mean Platelet Volume 7.1 fL (7.5-11.2); Platelet Count 367 10^3/uL (150-450); Red Blood Count 3.94 10^6/uL (3.63-4.92); Red Cell Distribution Width 15.5 % (12-17); White Blood Count 12.4 10^3/uL (3.8-11.8)
[2022-08-17 05:31] LABS: Urine Appearance Cloudy; Urine Bilirubin Negative (Negative); Urine Blood 2+ (Negative); Urine Color Yellow; Urine Glucose Negative (Negative); Urine Ketones Negative (Negative); Urine Nitrite Negative (Negative); Urine Protein 2+(100 mg/dL) (Negative); Urine Specific Gravity 1.027 (1.002-1.030); Urine Urobilinogen Negative (Negative)
[2022-08-17 05:41] LABS: Urine Bacteria 1+ (Absent); Urine Red Blood Cell 3+(>10/hpf) (Absent); Urine Squamous Epithelial Cell Present (Absent); Urine White Blood Cell 3+(>20/hpf) (Absent); Urine Yeast Present (Absent)
[2022-08-17 05:46] LABS: Albumin 2.4 g/dL (3.2-5.2); Albumin/Globulin Ratio 1.6 (1-3); C Reactive Protein 4.13 mg/L (<8.01); Creatinine, Serum 0.67 mg/dL (0.51-0.95); Globulin 1.5 g/dL (2-4); Total Bilirubin 0.3 mg/dL (0.2-1.0); Total Protein 3.9 g/dL (6.4-8.9); eGFR CKD-EPI 93.4 (>60)
[2022-08-17 05:54] LABS: Calcium 5.5 mg/dL (8.6-10.3); Potassium 2.5 mmol/L (3.5-5.0)
[2022-08-17] MEDS ORDERED: Ondansetron 4 mg VIAL 2 MG/ML 2 ml VIAL IV ONE (06:03)
[2022-08-17] MEDS ORDERED: Ondansetron 4 mg VIAL 2 MG/ML 2 ml VIAL ONE (06:04)
[2022-08-17] MEDS ORDERED: Potassium EFFERVES 25 meq TAB PO ONE (06:04)
[2022-08-17] MEDS ORDERED: Calcium Gluconate 2 GM in NS 0.9% 100 ml BAG 100 ML IVPB ONE (06:05)
[2022-08-17] MEDS ORDERED: Iohexol 350 (CONTRAST) 500 ML MDV IV ONE (06:13)
[2022-08-17 07:02] LABS: Albumin 3.8 g/dL (3.2-5.2); Albumin/Globulin Ratio 1.5 (1-3); C Reactive Protein 6.58 mg/L (<8.01); Calcium 9.2 mg/dL (8.6-10.3); Creatinine, Serum 1.28 mg/dL (0.51-0.95); Globulin 2.6 g/dL (2-4); Potassium 4.1 mmol/L (3.5-5.0); Total Bilirubin 0.5 mg/dL (0.2-1.0); Total Protein 6.4 g/dL (6.4-8.9); eGFR CKD-EPI 44.8 (>60)
[2022-08-17 07:21] LABS: Calcium (PTH Intact) 9.2 mg/dL (8.6-10.3)
[2022-08-17] MEDS ORDERED: NS 0.9% 1000 ml BAG 1,000 ML IV ONE (08:21)
[2022-08-17] MEDS ORDERED: Albuterol/Ipratropium NEB.SOL (2.5/0.5 MG) 3 ML NEB.SOLN INH ONE (08:27)
[2022-08-17] MEDS ORDERED: FLUTICAS/UMECLI/VILANT 100-62.5-25 MDI (NF) INH ONE (08:28)
[2022-08-17] MEDS ORDERED: Mometasone/Formoter 200/5 MDI INH ONE (09:00)
[2022-08-17] MEDS ORDERED: Lactated Ringers 1000 ml BAG 1,000 ML IV ONE ×2 (12:59→23:00)
[2022-08-17] MEDS ORDERED: Ondansetron 4 mg VIAL 2 MG/ML 2 ml VIAL IV PRN (13:22)
[2022-08-17] MEDS: ceFAZolin 1 GM ADVAN 1 GM in NS 0.9% 50 ML 50 ML IVPB SCH ×2 (13:49→22:41)
[2022-08-17] MEDS: Morphine 2 MG/ML SYRINGE IV PRN ×3 (13:50→22:49)
[2022-08-17] MEDS: methylPREDNISolone SOD SUCC 40 mg/ml 1 ml VIAL IV SCH (13:50)
[2022-08-17] MEDS: Albuterol/Ipratropium NEB.SOL (2.5/0.5 MG) 3 ML NEB.SOLN INH SCH (19:17)
[2022-08-17] MEDS ORDERED: Phenol 1.4% Throat Spray BTL MT PRN (20:53)
[2022-08-17] MEDS: Heparin 5000 UNITS/ML 1 mL VIAL SUBCUT SCH (22:42)
[2022-08-18] MEDS: ceFAZolin 1 GM ADVAN 1 GM in NS 0.9% 50 ML 50 ML IVPB SCH ×2 (05:37→14:17)
[2022-08-18] MEDS: Heparin 5000 UNITS/ML 1 mL VIAL SUBCUT SCH ×2 (05:39→14:18)
[2022-08-18] MEDS: Morphine 2 MG/ML SYRINGE IV PRN (05:49)
[2022-08-18 06:21] LABS: Hematocrit 28.2 % (35-45); Hemoglobin 9.4 g/dL (11.5-14.3); Mean Corpuscular Hgb Conc 33.4 g/dL (31-36); Mean Corpuscular Volume 83.8 fL (80-97); Platelet Count 287 10^3/uL (150-450); Red Blood Count 3.37 10^6/uL (3.63-4.92); Red Cell Distribution Width 15.2 % (12-17); White Blood Count 11.2 10^3/uL (3.8-11.8)
[2022-08-18 06:41] LABS: Calcium 8.9 mg/dL (8.6-10.3); Creatinine, Serum 1.29 mg/dL (0.51-0.95); Magnesium 1.9 mg/dL (1.9-2.7); Potassium 4.4 mmol/L (3.5-5.0); eGFR CKD-EPI 44.4 (>60)
[2022-08-18] MEDS: Albuterol/Ipratropium NEB.SOL (2.5/0.5 MG) 3 ML NEB.SOLN INH SCH ×2 (07:12→19:37)
[2022-08-18] MEDS ORDERED: FLUTICAS/UMECLI/VILANT 100-62.5-25 MDI (NF) INH SCH ×2 (09:00→19:00)
[2022-08-18] MEDS ORDERED: Lactated Ringers 1000 ml BAG 1,000 ML IV SCH (11:00)
[2022-08-18] MEDS: methylPREDNISolone SOD SUCC 40 mg/ml 1 ml VIAL IV SCH (11:55)
[2022-08-18 18:07] VITALS: BP 123/66
== END 2022-08-18 19:20 | disposition short-term general hospital (02) | DRG 389 ==
LOC: ED 04:31 → EDHOLD 10:50 → SUATTDRO 10:50 → SSU 12:25
PROVIDERS: ADMIT Internal Medicine; ATTEND Internal Medicine